=== PATIENT | female | born 1970 | race Asian ===

== ENCOUNTER 2016-07-19 | Outpatient (CLI) | END 2016-07-19 01:49 | disposition critical access hospital (66) | CPT/HCPCS: A0425; A0427 ==

== ENCOUNTER 2016-07-19 02:15 | Emergency (ER) | payer MEDICAID ==
[2016-07-19] MEDS ORDERED: AZITHROMYCIN 250 MG TABLET PO STA (07:58)
[2016-07-19] MEDS ORDERED: AZITHROMYCIN 250 MG TABLET PO ONE (07:59)
[2016-07-19] MEDS ORDERED: ACETAMINOPHEN 325 MG TABLET PO STA (07:59)
[2016-07-19] MEDS ORDERED: ACETAMINOPHEN 325 MG TABLET PO ONE (07:59)
== END 2016-07-19 08:16 | disposition home or self-care (01) ==
DX: J40 Bronchitis, not specified as acute or chronic (principal); E11.22 Type 2 diabetes mellitus with diabetic chronic kidney disease; I12.0 Hypertensive chronic kidney disease with stage 5 chronic kidney disease or end stage renal disease; N18.6 End stage renal disease; F17.200 Nicotine dependence, unspecified, uncomplicated; Z99.2 Dependence on renal dialysis
CPT/HCPCS: 36415; 71020; 80053; 83690; 83880; 85025; 85610; 85730; 87275; 87276; 99284; A9270

== ENCOUNTER 2016-09-14 10:44 | Outpatient (CLI) | payer MEDICAID | END 2016-09-14 10:45 | disposition home or self-care (01) | DX: R06.00 Dyspnea, unspecified (principal); N18.5 Chronic kidney disease, stage 5 ==

== ENCOUNTER 2016-09-27 09:26 | Outpatient (CLI) | payer MEDICAID | END 2016-09-27 09:27 | disposition critical access hospital (66) | DX: R22.0 Localized swelling, mass and lump, head (principal); R10.9 Unspecified abdominal pain | CPT/HCPCS: A0425; A0427 ==

== ENCOUNTER 2016-09-27 09:51 | Emergency (ER) | payer MEDICAID ==
[2016-09-27] MEDS ORDERED: FUROSEMIDE 40 MG/4 ML VIAL IVP STA ×2 (12:18→12:58)
[2016-09-27] MEDS ORDERED: ACETAMINOPHEN 325 MG TABLET PO STA (12:21)
[2016-09-27] MEDS ORDERED: diphenhydrAMINE 25 MG CAPSULE PO STA (12:21)
[2016-09-27] MEDS ORDERED: FUROSEMIDE 40 MG/4 ML VIAL ONE ×2 (12:35→13:04)
[2016-09-27] MEDS ORDERED: ACETAMINOPHEN 325 MG TABLET PO ONE (12:35)
[2016-09-27] MEDS ORDERED: diphenhydrAMINE 25 MG CAPSULE PO ONE (12:35)
== END 2016-09-27 14:04 | disposition home or self-care (01) ==
DX: E11.22 Type 2 diabetes mellitus with diabetic chronic kidney disease (principal); N18.6 End stage renal disease; Z99.2 Dependence on renal dialysis; R60.1 Generalized edema; I10 Essential (primary) hypertension; E78.00 Pure hypercholesterolemia, unspecified; J45.909 Unspecified asthma, uncomplicated; K21.9 Gastro-esophageal reflux disease without esophagitis; M19.90 Unspecified osteoarthritis, unspecified site; F17.200 Nicotine dependence, unspecified, uncomplicated
CPT/HCPCS: 36415; 80053; 83690; 83735; 84100; 85025; 96374; 99283; 99284; A9270

== ENCOUNTER 2016-10-11 03:47 | Outpatient (CLI) | payer MEDICAID | END 2016-10-11 03:48 | disposition critical access hospital (66) | DX: R06.02 Shortness of breath (principal) | CPT/HCPCS: A0425; A0427 ==

== ENCOUNTER 2016-10-11 04:10 | Emergency (ER) | payer MEDICAID ==
[2016-10-11 05:26] LABS: BASOPHILS # (AUTO) 0.1 10^3/uL (0.0-0.1); BASOPHILS % (AUTO) 0.6 %; EOSINOPHILS # (AUTO) 0.3 10^3/uL (0.0-0.7); EOSINOPHILS % (AUTO) 2.9 %; HCT - HEMATOCRIT 33.1 % (37.0-47.0); HGB - HEMOGLOBIN 10.6 g/dL (12.0-16.0); LYMPHOCYTES # (AUTO) 0.6 10^3/uL (1.5-3.5); LYMPHOCYTES % (AUTO) 5.3 %; MEAN CORPUSCULAR HEMOGLOBIN 31.6 pg (27.0-31.0); MEAN CORPUSCULAR HGB CONC 32.2 g/dL (32.0-36.0); MEAN CORPUSCULAR VOLUME 98.1 fL (81.0-99.0); MEAN PLATELET VOLUME 7.4 fL (7.9-10.8); MONOCYTES # (AUTO) 0.5 10^3/uL (0.0-1.0); MONOCYTES % (AUTO) 4.4 %; NEUTROPHILS # (AUTO) 9.6 10^3/uL (1.5-6.6); NEUTROPHILS % (AUTO) 86.8 %; RED BLOOD COUNT 3.37 10^6/uL (4.20-5.40); RED CELL DISTRIBUTION WIDTH 14.7 % (12.0-15.0)
[2016-10-11 05:40] LABS: ALBUMIN/GLOBULIN RATIO 1.2 (1.0-2.2); BILIRUBIN,TOTAL 0.9 mg/dL (0.2-1.0); CALCIUM 10.4 mg/dL (8.5-10.3); POTASSIUM 4.6 mmol/L (3.5-5.0); TOTAL PROTEIN 7.4 g/dL (6.7-8.2)
[2016-10-11 05:46] LABS: CREATININE 10.3 mg/dL (0.4-1.0)
--- NOTE | 2016-10-11 06:43 | ED Physician Documentation ---
PD HPI CHEST PAIN <Michael Tse - Last Filed: 10/11/16 06:43> - History obtained from History obtained from: Patient - History of Present Illness Timing - onset: Last night <Tejas Strong - Last Filed: 10/11/16 07:27> - Stated complaint Stated Complaint: CP, COUGH - Chief complaint Chief Complaint: Resp PD PAST MEDICAL HISTORY - Past Medical History Cardiovascular: Hypertension, High cholesterol Respiratory: Asthma, Pneumonia, Other Neuro: None Endocrine/Autoimmune: Type 2 diabetes GI: GERD : Dialysis, Renal insuffiency, Other HEENT: Other Psych: Depression, Anxiety Musculoskeletal: Osteoarthritis, Chronic back pain Derm: None - Past Surgical History Past Surgical History: Yes General: Cholecystectomy, Appendectomy, Bowel surgery Ortho: Carpal Tunnel surgery, 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, 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 HEENT: Cataracts, Other - Social History Does the pt smoke?: Yes Smoking Status: Current every day smoker Does the pt drink ETOH?: No Does the pt have substance abuse?: No - Immunizations Immunizations are current?: Yes - POLST Patient has POLST: No <Michael Tse - Last Filed: 10/11/16 06:43> <Tejas Strong - Last Filed: 10/11/16 07:27> - Present Medications Home Medications: Ambulatory Orders Medication Instructions Recorded Confirmed Labetalol HCl [Trandate] 100 mg PO BID 11/20/12 10/11/16 Montelukast Sodium [Singulair] 10 mg PO DAILY 11/25/12 10/11/16 raNITIdine [Zantac] 1 tab PO BID 08/22/14 10/11/16 Albuterol Sulfate [Proair 90 mcg IH Q6HR PRN 06/02/15 10/11/16 Respiclick] Loratadine 10 mg PO DAILY 06/02/15 10/11/16 Amoxicillin 875 mg PO BID 09/27/16 10/11/16 Azithromycin 0 mg PO .FREQ 09/27/16 09/27/16 Bisacodyl [Dulcolax] 10 mg PO DAILY PRN #10 tablet 09/27/16 10/11/16 Calcium Acetate 1,334 mg PO TIDWM 09/27/16 09/27/16 Citalopram [CeleXA] 0 mg PO .FREQ 09/27/16 09/27/16 Fluconazole 0 mg PO .FREQ 09/27/16 09/27/16 Fludrocortisone [Florinef] 0.2 mg PO DAILY 09/27/16 10/11/16 Furosemide [Lasix] 160 mg PO BID 09/27/16 10/11/16 Gabapentin 900 mg PO DAILY PM 09/27/16 10/11/16 Hydrocodone/Acetaminophen [Vicodin 0 mg PO .FREQ 09/27/16 09/27/16 Hp 10-300 mg Tablet] Hydroxyzine HCl 25 mg PO .FREQ 09/27/16 09/27/16 Lisinopril 2.5 mg PO DAILY 09/27/16 10/11/16 Metolazone 5 mg PO DAILY 09/27/16 10/11/16 Omeprazole 40 mg PO BID 09/27/16 10/11/16 Sertraline [Zoloft] 25 mg PO DAILY 09/27/16 10/11/16 hydrALAZINE [Apresoline] 25 mg PO BID 09/27/16 10/11/16 Albuterol Sulfate [Proair Hfa 8.5 gm IH QID #1 hfa.aer.ad 10/11/16 Inhaler] Azithromycin [Zithromax] 250 mg PO DAILY #6 tablet 10/11/16 Baclofen 5 - 10 mg PO PRN PRN 10/11/16 10/11/16 Dexamethasone [Decadron] 4 mg PO DAILY #5 tablet 10/11/16 - Allergies Allergies/Adverse Reactions: Allergies Allergy/AdvReac Type Severity Reaction Status Date / Time No Known Drug Allergies Allergy Verified 10/11/16 04:19 - Vitals Vitals: Vital Signs - 24 hr 10/11/16 04:13 Temperature 98.2 C H Heart Rate 77 Respiratory 20 Rate Blood Pressure 174/70 H O2 Saturation 96 Oxygen O2 Source Room air - Labs Labs: Laboratory Tests 10/11/16 10/11/16 10/11/16 05:19 05:19 05:19 WBC 11.0 H RBC 3.37 L Hgb 10.6 L Hct 33.1 L MCV 98.1 MCH 31.6 H MCHC 32.2 RDW 14.7 Plt Count 264 MPV 7.4 L Neut # 9.6 H Lymph # 0.6 L [place] # 0.5 Eos # 0.3 Baso # 0.1 Absolute Nucleated RBC 0.00 Nucleated RBCs 0.0 Sodium 133 L Potassium 4.6 Chloride 95 L Carbon Dioxide 25 Anion Gap 13.0 BUN 53 H Creatinine 10.3 H* Estimated GFR (MDRD) 4 L Glucose 215 H Calcium 10.4 H Total Bilirubin 0.9 AST 14 ALT 13 Alkaline Phosphatase 75 Troponin I 0.07 Total Protein 7.4 Albumin 4.0 Globulin 3.4 Albumin/Globulin Ratio 1.2 Lipase 21 L Departure <Michael Tse - Last Filed: 10/11/16 06:43> - Departure Record reviewed to determine appropriate education?: Yes <Tejas Strong - Last Filed: 10/11/16 07:27> - Departure Clinical Impression: Bronchitis Chest pain Qualifiers: Chest pain type: pleurodynia Qualified Code(s): R07.81 - Pleurodynia Condition: Stable Instructions: ED Bronchitis Asthmatic, ED Chest Pain Pleurisy Follow-Up: Lorie Glynn ARNP [Primary Care Provider] - Prescriptions: Dexamethasone [Decadron] 4 mg PO DAILY #5 tablet Albuterol Sulfate [Proair Hfa Inhaler] 8.5 gm IH QID #1 hfa.aer.ad Azithromycin [Zithromax] 250 mg PO DAILY #6 tablet
[2016-10-11] MEDS ORDERED: IPRATROPIUM/ALBUTEROL 3 ML NEB INH ONE (07:19)
[2016-10-11] MEDS: IPRATROPIUM/ALBUTEROL 3 ML NEB INH STA (07:24)
--- NOTE | 2016-10-11 07:25 | XRAY Preliminary Report ---
Exam: XR Chest 2 View PA/LAT IMPRESSION: 1. No definable focal consolidation. 2. Central bronchial wall thickening as before may represent bronchitis or reactive airways disease. 3. Chronic bilateral rib fractures as before. [facility] SITE ID: [id number]
--- NOTE | 2016-10-11 07:30 | ED Physician Documentation ---
PD HPI CHEST PAIN - Stated complaint Stated Complaint: CP, COUGH - Chief complaint Chief Complaint: Resp - History obtained from History obtained from: Patient - History of Present Illness Timing - onset: Last night Timing - duration: Hours (4-6) Timing - details: Gradual onset, Still present, Waxing and waning Quality: Sharp, Stabbing, Pain Location: Substernal, Left chest Radiation: No: Jaw, Neck Improved by: Rest Worsened by: Inspiration, Movement, Other (cough) Associated symptoms: Shortness of air, Cough (has had cough for 1-2 weeks particularly, though some cough for few months.) Similar symptoms before: Has not had sx before Recently seen: Not recently seen Review of Systems Constitutional: denies: Fever, Chills Nose: denies: Rhinorrhea / runny nose, Congestion Throat: denies: Sore throat Cardiac: reports: Chest pain / pressure (just last night). denies: Palpitations , Pedal edema, Calf pain Respiratory: reports: Cough, Wheezing GI: denies: Nausea, Vomiting, Diarrhea Skin: denies: Rash PD PAST MEDICAL HISTORY - Past Medical History Cardiovascular: Hypertension, High cholesterol Respiratory: Asthma, Pneumonia, Other Neuro: None Endocrine/Autoimmune: Type 2 diabetes GI: GERD : Dialysis, Renal insuffiency, Other HEENT: Other Psych: Depression, Anxiety Musculoskeletal: Osteoarthritis, Chronic back pain Derm: None - Past Surgical History Past Surgical History: Yes General: Cholecystectomy, Appendectomy, Bowel surgery Ortho: Carpal Tunnel surgery, 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, 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 HEENT: Cataracts, Other - Present Medications Home Medications: Ambulatory Orders Medication Instructions Recorded Confirmed Labetalol HCl [Trandate] 100 mg PO BID 11/20/12 10/11/16 Montelukast Sodium [Singulair] 10 mg PO DAILY 11/25/12 10/11/16 raNITIdine [Zantac] 1 tab PO BID 08/22/14 10/11/16 Albuterol Sulfate [Proair 90 mcg IH Q6HR PRN 06/02/15 10/11/16 Respiclick] Loratadine 10 mg PO DAILY 06/02/15 10/11/16 Amoxicillin 875 mg PO BID 09/27/16 10/11/16 Bisacodyl [Dulcolax] 10 mg PO DAILY PRN #10 tablet 09/27/16 10/11/16 Calcium Acetate 1,334 mg PO TIDWM 09/27/16 09/27/16 Citalopram [CeleXA] 0 mg PO .FREQ 09/27/16 09/27/16 Fluconazole 0 mg PO .FREQ 09/27/16 09/27/16 Fludrocortisone [Florinef] 0.2 mg PO DAILY 09/27/16 10/11/16 Furosemide [Lasix] 160 mg PO BID 09/27/16 10/11/16 Gabapentin 900 mg PO DAILY PM 09/27/16 10/11/16 Hydrocodone/Acetaminophen [Vicodin 0 mg PO .FREQ 09/27/16 09/27/16 Hp 10-300 mg Tablet] Hydroxyzine HCl 25 mg PO .FREQ 09/27/16 09/27/16 Lisinopril 2.5 mg PO DAILY 09/27/16 10/11/16 Metolazone 5 mg PO DAILY 09/27/16 10/11/16 Omeprazole 40 mg PO BID 09/27/16 10/11/16 Sertraline [Zoloft] 25 mg PO DAILY 09/27/16 10/11/16 hydrALAZINE [Apresoline] 25 mg PO BID 09/27/16 10/11/16 Albuterol Sulfate [Proair Hfa 8.5 gm IH QID #1 hfa.aer.ad 10/11/16 Inhaler] Baclofen 5 - 10 mg PO PRN PRN 10/11/16 10/11/16 Dexamethasone [Decadron] 4 mg PO DAILY #5 tablet 10/11/16 Doxycycline Hyclate 100 mg PO BID #14 tablet 10/11/16 - Allergies Allergies/Adverse Reactions: Allergies Allergy/AdvReac Type Severity Reaction Status Date / Time No Known Drug Allergies Allergy Verified 10/11/16 04:19 - Social History Does the pt smoke?: Yes Smoking Status: Current every day smoker Does the pt drink ETOH?: No Does the pt have substance abuse?: No - Immunizations Immunizations are current?: Yes - POLST Patient has POLST: No PD ED PE NORMAL - Vitals Vital signs reviewed: Yes - General General: Alert and oriented X 3 (was asleep on my first exam but awakens and conversant. ), No acute distress, Well developed/nourished - Neck Neck: Supple, no meningeal sign, No adenopathy - Cardiac Cardiac: RRR, No murmur, No rub - Respiratory Respiratory: No: Clear bilaterally (wheezing diffusely without retractions/ accessory muscle use. No coarse sounds. ) - Abdomen Abdomen: Soft, Non tender - Derm Derm: Normal color, Warm and dry - Extremities Extremities: Normal ROM s pain, No edema, No calf tenderness / cord - Neuro Neuro: Alert and oriented X 3, No motor deficit, Normal speech Results - Vitals Vitals: Vital Signs - 24 hr 10/11/16 10/11/16 10/11/16 04:13 07:30 07:38 Temperature 98.2 C H Heart Rate 77 74 71 Respiratory 20 20 Rate Blood Pressure 174/70 H 142/58 H O2 Saturation 96 97 10/11/16 08:00 Temperature Heart Rate 71 Respiratory 20 Rate Blood Pressure 155/65 H O2 Saturation 95 Oxygen O2 Source Room air - EKG (time done) 04:38 Rate: Rate (enter#) (70s) Rhythm: NSR [place]: Normal Intervals: Normal DE QRS: Normal Ischemia: Normal ST segments, Non specific changes (t inverted lateral). No: ST elevation c/w ischemia - Labs Labs: Laboratory Tests 10/11/16 10/11/16 10/11/16 05:19 05:19 05:19 WBC 11.0 H RBC 3.37 L Hgb 10.6 L Hct 33.1 L MCV 98.1 MCH 31.6 H MCHC 32.2 RDW 14.7 Plt Count 264 MPV 7.4 L Neut # 9.6 H Lymph # 0.[address] [place] # 0.5 Eos # 0.3 Baso # 0.1 Absolute Nucleated RBC 0.00 Nucleated RBCs 0.0 Sodium 133 L Potassium 4.6 Chloride 95 L Carbon Dioxide 25 Anion Gap 13.0 BUN 53 H Creatinine 10.3 H* Estimated GFR (MDRD) 4 L Glucose 215 H Calcium 10.4 H Total Bilirubin 0.9 AST 14 ALT 13 Alkaline Phosphatase 75 Troponin I 0.07 Total Protein 7.4 Albumin 4.0 Globulin 3.4 Albumin/Globulin Ratio 1.2 Lipase 21 L - Rads (name of study) chest Radiology: Prelim report reviewed (no infiltrates) PD MEDICAL DECISION MAKING - ED course Complexity details: reviewed results, considered differential (sounds pleuritic with recent cough. Wheezing improves with neb treatment. Minimal trop presence in pt with renal failure 4-6 hours after onset of pains is negative.), d/w patient Departure - Departure Disposition: 01 Home, Self Care Clinical Impression: Bronchitis Chest pain Qualifiers: Chest pain type: pleurodynia Qualified Code(s): R07.81 - Pleurodynia Condition: Stable Record reviewed to determine appropriate education?: Yes Instructions: ED Bronchitis Asthmatic, ED Chest Pain Pleurisy Follow-Up: Lorie Glynn ARNP [Primary Care Provider] - Prescriptions: Dexamethasone [Decadron] 4 mg PO DAILY #5 tablet Doxycycline Hyclate 100 mg PO BID #14 tablet Albuterol Sulfate [Proair Hfa Inhaler] 8.5 gm IH QID #1 hfa.aer.ad Comments: Continue usual medications. Dialysis today as planned. Add Decadron daily for 5 more days and Doxycycline antibiotic twice daily for bronchitis. Use your Albuterol inhaler 2 puffs 4 times daily for 7-10 days at least and extra times as needed. Recheck if not improving over the next couple of days.
[2016-10-11] MEDS ORDERED: AZITHROMYCIN 250 MG TABLET PO ONE (07:44)
[2016-10-11] MEDS ORDERED: CHERRY SYRUP 10 ML UDC PO ONE (07:45)
[2016-10-11] MEDS ORDERED: oxyCOD/ACETAMIN 5 MG/325 MG TABLET PO ONE (07:45)
[2016-10-11] MEDS ORDERED: ACETAMINOPHEN 325 MG TABLET PO ONE (07:46)
[2016-10-11] MEDS ORDERED: DEXAMETHASONE 10 MG/ML VIAL ONE (07:47)
[2016-10-11] MEDS: ACETAMINOPHEN 325 MG TABLET PO STA (07:52)
[2016-10-11] MEDS: DEXAMETHASONE 10 MG/ML VIAL PO STA (07:52)
[2016-10-11] MEDS: oxyCOD/ACETAMIN 5 MG/325 MG TABLET PO STA (07:52)
[2016-10-11] MEDS: AZITHROMYCIN 250 MG TABLET PO STA (07:53)
[2016-10-11] MEDS: HYDROmorphone 1 MG/ML SYRINGE IVP STA (08:02)
[2016-10-11] MEDS: DEXAMETHASONE 10 MG/ML VIAL IVP STA (08:04)
[2016-10-11] MEDS ORDERED: ALBUTEROL NEB 2.5 MG/3 ML INH ONE (08:10)
[2016-10-11] MEDS: ALBUTEROL NEB 2.5 MG/3 ML INH STA (08:13)
[2016-10-11 08:16] VITALS: BP 155/65
--- NOTE | 2016-10-11 10:08 | XRAY Report ---
EXAM: CHEST RADIOGRAPHY EXAM DATE: 10/11/2016 06:02 AM. CLINICAL HISTORY: Chest pain and cough. COMPARISON: 09/14/2016. TECHNIQUE: 2 views. FINDINGS: Lungs/Pleura: No definite focal consolidation identified. There is a suggestion of perihilar bronchia l wall thickening best seen on the lateral view and similar to prior exam. No effusions or edema. Pul monary vascular structures unremarkable. Mediastinum: Mildly enlarged as before. Other: Old rib fractures of the right posterior seventh and left lateral sixth ribs again identified. Some pleural thickening adjacent to the left sixth rib fracture again noted. IMPRESSION: 1. No definable focal consolidation. 2. Central bronchial wall thickening as before may represent bronchitis or reactive airways disease. 3. Chronic bilateral rib fractures as before. [facility] Referring Provider Line: [phone] SITE ID: [id number]
== END 2016-10-11 08:27 | disposition home or self-care (01) ==
LOC: EDBD → EDUNIT# → SUPCPDRO 04:10 → ED 04:10
DX: J40 Bronchitis, not specified as acute or chronic (principal); R07.81 Pleurodynia; I10 Essential (primary) hypertension; E78.00 Pure hypercholesterolemia, unspecified; J45.909 Unspecified asthma, uncomplicated; E11.9 Type 2 diabetes mellitus without complications; K21.9 Gastro-esophageal reflux disease without esophagitis; Z90.49 Acquired absence of other specified parts of digestive tract; F17.200 Nicotine dependence, unspecified, uncomplicated; Z90.710 Acquired absence of both cervix and uterus
CPT/HCPCS: 36415; 71020; 80053; 83690; 84484; 85025; 93005; 93010; 94640; 99283; 99284

== ENCOUNTER 2016-10-18 14:55 | Outpatient (CLI) | payer MEDICAID | END 2016-10-18 14:56 | disposition critical access hospital (66) | DX: R47.02 Dysphasia (principal); R29.898 Other symptoms and signs involving the musculoskeletal system | CPT/HCPCS: A0425; A0429 ==

== ENCOUNTER 2016-10-18 15:09 | Emergency (ER) | payer MEDICAID ==
[2016-10-18] MEDS ORDERED: MOXIFLOXACIN 400MG/250ML IV 250 ML IV ONE (18:00)
== END 2016-10-18 19:16 | disposition short-term general hospital (02) ==
DX: G45.9 Transient cerebral ischemic attack, unspecified (principal); R29.705 NIHSS score 5; J18.9 Pneumonia, unspecified organism; R09.02 Hypoxemia; R41.82 Altered mental status, unspecified; I12.0 Hypertensive chronic kidney disease with stage 5 chronic kidney disease or end stage renal disease; E11.22 Type 2 diabetes mellitus with diabetic chronic kidney disease; N18.6 End stage renal disease; Z99.2 Dependence on renal dialysis; F17.200 Nicotine dependence, unspecified, uncomplicated

== ENCOUNTER 2016-10-18 19:14 | Outpatient (CLI) | payer MEDICAID | END 2016-10-18 19:15 | disposition short-term general hospital (02) | DX: J18.9 Pneumonia, unspecified organism (principal); R09.02 Hypoxemia | CPT/HCPCS: A0170; A0425; A0426 ==

== ENCOUNTER 2016-10-31 12:03 | Outpatient (CLI) | payer MEDICAID | END 2016-10-31 12:04 | disposition home or self-care (01) | DX: I48.91 Unspecified atrial fibrillation (principal) ==

== ENCOUNTER 2016-11-02 13:52 | Outpatient (CLI) | payer MEDICAID | END 2016-11-02 13:53 | disposition home or self-care (01) | DX: I48.91 Unspecified atrial fibrillation (principal) ==

== ENCOUNTER 2016-11-09 10:53 | Outpatient (CLI) | payer MEDICAID | END 2016-11-09 10:54 | DX: I48.91 Unspecified atrial fibrillation (principal) ==

== ENCOUNTER 2016-11-11 11:29 | Outpatient (CLI) | payer MEDICAID | END 2016-11-11 11:30 | disposition home or self-care (01) | DX: I48.91 Unspecified atrial fibrillation (principal) ==

== ENCOUNTER 2016-11-14 12:02 | Outpatient (CLI) | payer MEDICAID | END 2016-11-14 12:03 | DX: I48.91 Unspecified atrial fibrillation (principal) ==

== ENCOUNTER 2016-11-17 15:34 | Outpatient (CLI) | payer MEDICAID | END 2016-11-17 15:35 | DX: I48.91 Unspecified atrial fibrillation (principal) ==

== ENCOUNTER 2016-11-21 17:04 | Outpatient (CLI) | payer MEDICAID | END 2016-11-21 17:05 | disposition short-term general hospital (02) | LOC: EMS 17:04 | PROVIDERS: ATTEND Surgery | DX: R10.9 Unspecified abdominal pain (principal); R11.0 Nausea; R19.7 Diarrhea, unspecified; R53.83 Other fatigue; Z99.2 Dependence on renal dialysis | CPT/HCPCS: A0425; A0429 ==

== ENCOUNTER 2016-11-28 12:04 | Outpatient (CLI) | payer MEDICAID | END 2016-11-28 12:05 | disposition home or self-care (01) | LOC: LAB.S 12:04 | PROVIDERS: ATTEND Nurse Practitioner Family | DX: I48.91 Unspecified atrial fibrillation (principal) | CPT/HCPCS: 85610 ==

== ENCOUNTER 2016-11-28 15:45 | Outpatient (CLI) | payer MEDICAID | END 2016-11-28 15:46 | disposition short-term general hospital (02) | LOC: EMS 15:45 | PROVIDERS: ATTEND Surgery | DX: R11.2 Nausea with vomiting, unspecified (principal); R53.1 Weakness; Z99.2 Dependence on renal dialysis | CPT/HCPCS: A0170; A0425; A0427 ==

== ENCOUNTER 2016-12-13 00:14 | Outpatient (CLI) | payer MEDICAID | END 2016-12-13 00:15 | disposition critical access hospital (66) | LOC: EMS 00:14 | PROVIDERS: ATTEND Surgery | DX: R06.02 Shortness of breath (principal) | CPT/HCPCS: A0425; A0429 ==

== ENCOUNTER 2016-12-13 00:41 | Emergency (ER) | payer MEDICAID ==
[2016-12-13] MEDS ORDERED: IPRATROPIUM/ALBUTEROL 3 ML NEB INH STA (00:48)
--- NOTE | 2016-12-13 00:50 | ED Physician Documentation ---
History of Present Illness - Stated complaint Stated Complaint: SOA, DIZZY - Chief complaint Chief Complaint: Resp - History obtained from History obtained from: Patient, EMS - History of Present Illness Timing: Chronic Pain level max: 0 Pain level now: 0 - Additonal information Additional information: Patient is a 46-year-old female who presents to the emergency department with a complaint of not feeling well today. States she has been short of breath tonight. States she has been wheezing, but has not used her inhaler or nebulizer. States she did not take her insulin today and her blood sugar is around 300. She is supposed to have dialysis in the morning. She sees GRETA Akins for nephrology. Review of Systems Ten Systems: 10 systems reviewed and negative Constitutional: denies: Fever, Chills Nose: denies: Rhinorrhea / runny nose, Congestion Throat: denies: Sore throat Cardiac: denies: Chest pain / pressure Respiratory: denies: Cough GI: denies: Nausea, Vomiting, Diarrhea Skin: denies: Rash Musculoskeletal: denies: Neck pain, Back pain Neurologic: denies: Focal weakness, Numbness, Confused, Altered mental status, Headache PD PAST MEDICAL HISTORY - Past Medical History Cardiovascular: Hypertension, High cholesterol Respiratory: Asthma, Pneumonia, Other Neuro: None Endocrine/Autoimmune: Type 2 diabetes GI: GERD : Dialysis, Renal insuffiency, Other HEENT: Other Psych: Depression, Anxiety Musculoskeletal: Osteoarthritis, Chronic back pain Derm: None - Past Surgical History Past Surgical History: Yes General: Cholecystectomy, Appendectomy, Bowel surgery Ortho: Carpal Tunnel surgery, 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, 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 HEENT: Cataracts, Other - Present Medications Home Medications: Ambulatory Orders Medication Instructions Recorded Confirmed Labetalol HCl [Trandate] 100 mg PO BID 11/20/12 10/11/16 Montelukast Sodium [Singulair] 10 mg PO DAILY 11/25/12 10/11/16 raNITIdine [Zantac] 1 tab PO BID 08/22/14 10/11/16 Albuterol Sulfate [Proair 90 mcg IH Q6HR PRN 06/02/15 10/11/16 Respiclick] Loratadine 10 mg PO DAILY 06/02/15 10/11/16 Amoxicillin 875 mg PO BID 09/27/16 10/11/16 Bisacodyl [Dulcolax] 10 mg PO DAILY PRN #10 tablet 09/27/16 10/11/16 Calcium Acetate 1,334 mg PO TIDWM 09/27/16 09/27/16 Citalopram [CeleXA] 0 mg PO .FREQ 09/27/16 09/27/16 Fluconazole 0 mg PO .FREQ 09/27/16 09/27/16 Fludrocortisone [Florinef] 0.2 mg PO DAILY 09/27/16 10/11/16 Furosemide [Lasix] 160 mg PO BID 09/27/16 10/11/16 Gabapentin 900 mg PO DAILY PM 09/27/16 10/11/16 Hydrocodone/Acetaminophen [Vicodin 0 mg PO .FREQ 09/27/16 09/27/16 Hp 10-300 mg Tablet] Hydroxyzine HCl 25 mg PO .FREQ 09/27/16 09/27/16 Lisinopril 2.5 mg PO DAILY 09/27/16 10/11/16 Metolazone 5 mg PO DAILY 09/27/16 10/11/16 Omeprazole 40 mg PO BID 09/27/16 10/11/16 Sertraline [Zoloft] 25 mg PO DAILY 09/27/16 10/11/16 hydrALAZINE [Apresoline] 25 mg PO BID 09/27/16 10/11/16 Albuterol Sulfate [Proair Hfa 8.5 gm IH QID #1 hfa.aer.ad 10/11/16 Inhaler] Baclofen 5 - 10 mg PO PRN PRN 10/11/16 10/11/16 Dexamethasone [Decadron] 4 mg PO DAILY #5 tablet 10/11/16 Doxycycline Hyclate 100 mg PO BID #14 tablet 10/11/16 - Allergies Allergies/Adverse Reactions: Allergies Allergy/AdvReac Type Severity Reaction Status Date / Time No Known Drug Allergies Allergy Verified 12/13/16 00:42 - Social History Does the pt smoke?: Yes Smoking Status: Current every day smoker Does the pt drink ETOH?: No Does the pt have substance abuse?: No - Immunizations Immunizations are current?: Yes - POLST Patient has POLST: No PD ED PE NORMAL - Vitals Vital signs reviewed: Yes - General General: Alert and oriented X 3, No acute distress, Well developed/nourished - HEENT HEENT: Moist mucous membranes - Neck Neck: Supple, no meningeal sign - Cardiac Cardiac: RRR, Strong equal pulses - Respiratory Respiratory: No respiratory distress, Other (wheezing B) - Abdomen Abdomen: Soft, Non tender - Back Back: No spinal TTP - Derm Derm: Warm and dry - Neuro Neuro: Alert and oriented X 3, No motor deficit, No sensory deficit - Psych Psych: Normal mood Results - Vitals Vitals: Vital Signs - 24 hr 12/13/16 12/13/16 12/13/16 00:43 01:10 01:40 Temperature 36.5 C Heart Rate 42 L 37 L 43 L Respiratory 20 16 19 Rate Blood Pressure 112/62 O2 Saturation 100 100 12/13/16 12/13/16 12/13/16 01:59 02:00 02:12 Temperature Heart Rate 47 L 40 L 39 L Respiratory 18 16 18 Rate Blood Pressure 113/61 O2 Saturation 99 97 98 12/13/16 12/13/16 12/13/16 02:20 03:18 03:20 Temperature Heart Rate 40 L 41 L 40 L Respiratory 18 19 Rate Blood Pressure 124/64 134/81 H O2 Saturation 98 95 97 12/13/16 03:35 Temperature Heart Rate 41 L Respiratory 18 Rate Blood Pressure 123/57 L O2 Saturation 95 Oxygen O2 Source Room air - EKG (time done) 0106 Rate: Rate (enter#) (39) Rhythm: Other (junctional) QRS: Normal Ischemia: Normal ST segments Computer interpretation: Agree with computer - Labs Labs: Laboratory Tests 12/13/16 12/13/16 12/13/16 00:55 00:55 00:55 WBC 7.4 RBC 3.00 L Hgb 9.4 L Hct 28.6 L MCV 95.2 MCH 31.1 H MCHC 32.7 RDW 15.6 H Plt Count 229 MPV 8.7 Neut # 5.7 Lymph # 0.8 L [place] # 0.3 Eos # 0.6 Baso # 0.1 Absolute Nucleated RBC 0.00 Nucleated RBCs 0.0 Sodium 132 L Potassium 6.7 H* Chloride 91 L Carbon Dioxide 27 Anion Gap 14.0 H BUN 55 H Creatinine 6.9 H Estimated GFR (MDRD) 6 L Glucose 306 H Calcium 9.1 Phosphorus 5.9 H Magnesium 2.7 Total Bilirubin 0.7 AST 21 ALT 14 Alkaline Phosphatase 152 H Troponin I Total Protein 7.5 Albumin 3.3 Globulin 4.2 Albumin/Globulin Ratio 0.8 L Lipase 22 12/13/16 00:55 WBC RBC Hgb Hct MCV MCH MCHC RDW Plt Count MPV Neut # Lymph # [place] # Eos # Baso # Absolute Nucleated RBC Nucleated RBCs Sodium Potassium Chloride Carbon Dioxide Anion Gap BUN Creatinine Estimated GFR (MDRD) Glucose Calcium Phosphorus Magnesium Total Bilirubin AST ALT Alkaline Phosphatase Troponin I 0.04 Total Protein Albumin Globulin Albumin/Globulin Ratio Lipase - Rads (name of study) cxr Radiology: Prelim report reviewed, EMP read contemporaneously, See rad report ( Mild cardiomegaly with small left pleural effusion and possible slight pulmonary edema. ) PD MEDICAL DECISION MAKING - ED course Complexity details: reviewed results, re-evaluated patient, considered differential, d/w patient ED course: Patient is a 46-year-old female who is on hemodialysis Monday. Not feeling well today. Breathing improved after nebulizer treatment. EKG revealed a junctional bradycardia. A prior EKG was obtained from [facility] in [place] from November 28, 2016 which revealed a junctional bradycardia at that time as well. While in the emergency department she had several runs of ventricular tachycardia. The longest was approximately 18 beats. She was symptomatic during this episode with lightheadedness, dizziness and generally feeling unwell. Magnesium IV was given and pacer pads were placed on the patient. 0210 - Called to [facility] in [place], no ICU beds. Cannot accept in transfer. 0215 - Call placed to [facility] and they do have ICU beds, but no nephrology avail. 0220 - Called Dr. Kaelyn Michel (ICU) lily accepts in transfer. Recommends Bicarb gtt and d/w cardiology for further recommendations including potential isoproteranol gtt. D/w Dr. Deng (cardiology) who recommends holding off on the Isoproterenol drip at this time. We will transfer the patient by airlift. Departure - Departure Disposition: 02 Transfer Acute Care Hosp Clinical Impression: Ventricular tachycardia, Junctional bradycardia, Hyperkalemia Condition: Stable Discharge Date/Time: 12/13/16 03:50
[2016-12-13 01:04] LABS: BASOPHILS # (AUTO) 0.1 10^3/uL (0.0-0.1); EOSINOPHILS # (AUTO) 0.6 10^3/uL (0.0-0.7); EOSINOPHILS % (AUTO) 7.7 %; HCT - HEMATOCRIT 28.6 % (37.0-47.0); HGB - HEMOGLOBIN 9.4 g/dL (12.0-16.0); LYMPHOCYTES # (AUTO) 0.8 10^3/uL (1.5-3.5); MEAN CORPUSCULAR HEMOGLOBIN 31.1 pg (27.0-31.0); MEAN CORPUSCULAR HGB CONC 32.7 g/dL (32.0-36.0); MEAN CORPUSCULAR VOLUME 95.2 fL (81.0-99.0); MEAN PLATELET VOLUME 8.7 fL (7.9-10.8); MONOCYTES # (AUTO) 0.3 10^3/uL (0.0-1.0); MONOCYTES % (AUTO) 3.6 %; NEUTROPHILS # (AUTO) 5.7 10^3/uL (1.5-6.6); NEUTROPHILS % (AUTO) 76.7 %; RED CELL DISTRIBUTION WIDTH 15.6 % (12.0-15.0); UNCORRECTED WHITE BLOOD COUNT 7.4 x10^3/uL; WHITE BLOOD COUNT 7.4 x10^3/uL (4.8-10.8)
[2016-12-13] MEDS ORDERED: IPRATROPIUM/ALBUTEROL 3 ML NEB INH ONE (01:05)
[2016-12-13 01:19] LABS: ALBUMIN/GLOBULIN RATIO 0.8 (1.0-2.2); BILIRUBIN,TOTAL 0.7 mg/dL (0.2-1.0); CALCIUM 9.1 mg/dL (8.5-10.3); CREATININE 6.9 mg/dL (0.4-1.0); TOTAL PROTEIN 7.5 g/dL (6.7-8.2)
[2016-12-13 01:20] LABS: POTASSIUM 6.7 mmol/L (3.5-5.0)
[2016-12-13] MEDS ORDERED: INSULIN REGULAR HUMAN 100 UNIT/1 ML 10 ML MDV SUBQ STA (01:23)
--- NOTE | 2016-12-13 01:26 | XRAY Preliminary Report ---
Exam: XR Chest 1 View IMPRESSION: 1. Mild cardiomegaly with small left pleural effusion and possible slight pulmonary edema. [facility] SITE ID: [id number]
[2016-12-13] MEDS ORDERED: INSULIN REGULAR HUMAN 100 UNIT/1 ML 10 ML MDV ONE (01:27)
--- NOTE | 2016-12-13 01:29 | XRAY Report ---
EXAM: CHEST RADIOGRAPHY EXAM DATE: 12/13/2016 01:02 AM. CLINICAL HISTORY: Dyspnea. COMPARISON: 10/18/2016. TECHNIQUE: 1 view. FINDINGS: Lungs/Pleura: There may be minimal pulmonary edema. Small left pleural effusion. No pneumothorax. Mediastinum: Mild cardiomegaly. Other: None. IMPRESSION: 1. Mild cardiomegaly with small left pleural effusion and possible slight pulmonary edema. [facility] Referring Provider Line: [phone] SITE ID: [id number]
[2016-12-13] MEDS ORDERED: MAGNESIUM SULFATE 2 GRAM 50 ML IV ONE ×2 (02:10→02:15)
[2016-12-13] MEDS ORDERED: CALCIUM GLUCONATE 1000 MG/10 ML VIAL IVP STA (02:25)
[2016-12-13] MEDS ORDERED: CALCIUM GLUCONATE 1000 MG/10 ML VIAL ONE (02:27)
[2016-12-13] MEDS ORDERED: SODIUM BICARBONATE 150 MEQ in DEXTROSE 5% 1,000 ML IV STA (02:36)
[2016-12-13] MEDS ORDERED: SODIUM POLYSTYRENE SULFONATE 15 GM/60 ML BOTTLE PO STA (02:37)
[2016-12-13] MEDS ORDERED: SODIUM BICARBONATE ABBOJECT 50 MEQ/50 ML SYRINGE ONE ×5 (02:47→03:02)
[2016-12-13 02:58] LABS: MAGNESIUM 2.7 mg/dL (1.7-2.8); PHOSPHORUS 5.9 mg/dL (2.5-4.6)
[2016-12-13] MEDS ORDERED: SODIUM POLYSTYRENE SULFONATE 15 GM/60 ML BOTTLE ONE (03:02)
[2016-12-13] MEDS ORDERED: DEXTROSE 5% 1,000 ML IV ONE (03:02)
[2016-12-13 03:35] VITALS: BP 123/57
== END 2016-12-13 03:50 | disposition short-term general hospital (02) ==
LOC: EDUNIT# → ED 00:41
DX: I47.2 Ventricular tachycardia (principal); R00.1 Bradycardia, unspecified; E87.5 Hyperkalemia; I10 Essential (primary) hypertension; E78.00 Pure hypercholesterolemia, unspecified; J45.909 Unspecified asthma, uncomplicated; E11.9 Type 2 diabetes mellitus without complications; K21.9 Gastro-esophageal reflux disease without esophagitis; N28.9 Disorder of kidney and ureter, unspecified; Z99.2 Dependence on renal dialysis; F17.200 Nicotine dependence, unspecified, uncomplicated
CPT/HCPCS: 36415; 71010; 80053; 83690; 83735; 84100; 84484; 85025; 93005; 93010; 94640; 96365; 96375; 99285; A9270; J1815; J7620

== ENCOUNTER 2017-01-19 03:39 | Outpatient (CLI) | payer MEDICAID | END 2017-01-19 03:40 | disposition critical access hospital (66) | DX: R06.02 Shortness of breath (principal); R05 Cough | CPT/HCPCS: A0425; A0427 ==

== ENCOUNTER 2017-01-19 04:20 | Emergency (ER) | payer MEDICAID ==
[2017-01-19] MEDS ORDERED: ALBUTEROL NEB 2.5 MG/3 ML INH STA (04:45)
[2017-01-19] MEDS ORDERED: ALBUTEROL NEB 2.5 MG/3 ML INH ONE (04:49)
[2017-01-19 04:54] LABS: BASOPHILS % (AUTO) 0.7 %; EOSINOPHILS % (AUTO) 9.9 %; HCT - HEMATOCRIT 30.4 % (37.0-47.0); HGB - HEMOGLOBIN 9.9 g/dL (12.0-16.0); LYMPHOCYTES % (AUTO) 8.3 %; MEAN CORPUSCULAR HEMOGLOBIN 30.6 pg (27.0-31.0); MEAN CORPUSCULAR HGB CONC 32.6 g/dL (32.0-36.0); MEAN CORPUSCULAR VOLUME 94.1 fL (81.0-99.0); MEAN PLATELET VOLUME 7.5 fL (7.9-10.8); MONOCYTES % (AUTO) 4.8 %; NEUTROPHILS % (AUTO) 76.3 %; RED BLOOD COUNT 3.23 10^6/uL (4.20-5.40); RED CELL DISTRIBUTION WIDTH 16.6 % (12.0-15.0)
[2017-01-19 05:10] LABS: ALBUMIN/GLOBULIN RATIO 0.9 (1.0-2.2); BILIRUBIN,TOTAL 0.8 mg/dL (0.2-1.0); CALCIUM 9.6 mg/dL (8.5-10.3); CREATININE 7.1 mg/dL (0.4-1.0); POTASSIUM 4.5 mmol/L (3.5-5.0); TOTAL PROTEIN 7.5 g/dL (6.7-8.2)
--- NOTE | 2017-01-19 05:41 | XRAY Preliminary Report ---
Exam: XR Chest 2 View PA/LAT IMPRESSION: 1. Cardiomegaly with small effusions and possible interstitial edema. 2. Infiltrate not excluded, especially at the right base. [facility] SITE ID: [id number]
--- NOTE | 2017-01-19 05:41 | ED Physician Documentation ---
PD HPI DYSPNEA - Stated complaint Stated Complaint: ASTHMA - Chief complaint Chief Complaint: General - History obtained from History obtained from: Patient, EMS - History of Present Illness Timing - onset: How many weeks ago (2) Timing - onset during: Rest Timing - duration: Weeks (2) Timing - details: Gradual onset, Still present Inciting event(s): URI Improved by: Inhaler/neb, Rest Worsened by: Coughing Associated symptoms: Cough, Wheezing Similar symptoms before: Diagnosis (pneumonia) Recently seen: Admitted (The patient was last admitted to [facility] in [place]) - Additional information Additional information: 46-year-old female diabetic end-stage renal failure on dialysis has developed a cough over the past 2 weeks. She is developed increasing difficulty breathing and this morning she was unable to sleep and was unable to get any relief with the use of her Inhaler.She had some mild relief coming into the emergency department by ambulance with a DuoNeb treatment in route.She notes pain to her sinuses and a cough as well as the shortness of breath. She has not had a fever. Review of Systems Constitutional: denies: Fever Eyes: denies: Decreased vision Ears: denies: Ear pain Nose: reports: Rhinorrhea / runny nose, Congestion, Sinus pressure / pain Throat: reports: Sore throat Cardiac: denies: Chest pain / pressure, Palpitations, Pedal edema, Calf pain Respiratory: reports: Dyspnea, Cough, Wheezing GI: denies: Abdominal Pain, Nausea, Vomiting : denies: Dysuria, Frequency Skin: denies: Rash Musculoskeletal: denies: Neck pain PD PAST MEDICAL HISTORY - Past Medical History Past Medical History: Yes Cardiovascular: Hypertension, High cholesterol Respiratory: Asthma, Pneumonia, Other Neuro: CVA Endocrine/Autoimmune: Type 2 diabetes GI: GERD : Dialysis, Renal insuffiency, Other HEENT: Other Psych: Depression, Anxiety Musculoskeletal: Osteoarthritis, Chronic back pain Derm: None - Past Surgical History Past Surgical History: Yes General: Cholecystectomy, Appendectomy, Bowel surgery Ortho: Carpal Tunnel surgery, 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, 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 HEENT: Cataracts, Other - Present Medications Home Medications: Ambulatory Orders Medication Instructions Recorded Confirmed Labetalol HCl [Trandate] 100 mg PO BID 11/20/12 10/11/16 Montelukast Sodium [Singulair] 10 mg PO DAILY 11/25/12 10/11/16 raNITIdine [Zantac] 1 tab PO BID 08/22/14 10/11/16 Albuterol Sulfate [Proair 90 mcg IH Q6HR PRN 06/02/15 10/11/16 Respiclick] Loratadine 10 mg PO DAILY 06/02/15 10/11/16 Amoxicillin 875 mg PO BID 09/27/16 10/11/16 Bisacodyl [Dulcolax] 10 mg PO DAILY PRN #10 tablet 09/27/16 10/11/16 Calcium Acetate 1,334 mg PO TIDWM 09/27/16 09/27/16 Citalopram [CeleXA] 0 mg PO .FREQ 09/27/16 09/27/16 Fluconazole 0 mg PO .FREQ 09/27/16 09/27/16 Fludrocortisone [Florinef] 0.2 mg PO DAILY 09/27/16 10/11/16 Furosemide [Lasix] 160 mg PO BID 09/27/16 10/11/16 Gabapentin 900 mg PO DAILY PM 09/27/16 10/11/16 Hydrocodone/Acetaminophen [Vicodin 0 mg PO .FREQ 09/27/16 09/27/16 Hp 10-300 mg Tablet] Hydroxyzine HCl 25 mg PO .FREQ 09/27/16 09/27/16 Lisinopril 2.5 mg PO DAILY 09/27/16 10/11/16 Metolazone 5 mg PO DAILY 09/27/16 10/11/16 Omeprazole 40 mg PO BID 09/27/16 10/11/16 Sertraline [Zoloft] 25 mg PO DAILY 09/27/16 10/11/16 hydrALAZINE [Apresoline] 25 mg PO BID 09/27/16 10/11/16 Albuterol Sulfate [Proair Hfa 8.5 gm IH QID #1 hfa.aer.ad 10/11/16 Inhaler] Baclofen 5 - 10 mg PO PRN PRN 10/11/16 10/11/16 Dexamethasone [Decadron] 4 mg PO DAILY #5 tablet 10/11/16 Doxycycline Hyclate 100 mg PO BID #14 tablet 10/11/16 - Allergies Allergies/Adverse Reactions: Allergies Allergy/AdvReac Type Severity Reaction Status Date / Time No Known Drug Allergies Allergy Verified 01/19/17 04:30 - Social History Does the pt smoke?: Yes Smoking Status: Current every day smoker Does the pt drink ETOH?: No Does the pt have substance abuse?: No - Immunizations Immunizations are current?: Yes - POLST Patient has POLST: No PD ED PE NORMAL - Vitals Vital signs reviewed: Yes (Hypertensive) - General General: Well developed/nourished, Other (46-year-old female with audible wheeze and tachypnea at rest.) - HEENT HEENT: Atraumatic, PERRL, EOMI, Other (Both TMs are inflamedMildly and the maxillary sinuses are tender bilaterally as well.) - Neck Neck: Supple, no meningeal sign, No bony TTP - Cardiac Cardiac: RRR, No murmur - Respiratory Respiratory: Other (The patient is tachypneic at rest and has bibasilar rhonchi worse on the right than the left.) - Abdomen Abdomen: Soft, Non tender - Back Back: No CVA TTP, No spinal TTP - Derm Derm: Normal color, Warm and dry, No rash - Extremities Extremities: No deformity, No edema - Neuro Neuro: No motor deficit, No sensory deficit - Psych Psych: Normal mood, Normal affect Results - Vitals Vitals: Vital Signs - 24 hr 01/19/17 01/19/17 01/19/17 04:23 04:50 05:24 Temperature 36.8 C Heart Rate 92 88 92 Respiratory 18 22 20 Rate Blood Pressure 149/91 H 196/70 H O2 Saturation 96 94 01/19/17 05:30 Temperature Heart Rate 93 Respiratory 22 Rate Blood Pressure 168/73 H O2 Saturation 97 Oxygen O2 Source Room air - Labs Labs: Laboratory Tests 01/19/17 01/19/17 04:45 04:45 WBC 11.0 H RBC 3.23 L Hgb 9.9 L Hct 30.4 L MCV 94.1 MCH 30.6 MCHC 32.6 RDW 16.6 H Plt Count 317 MPV 7.5 L Neut # Not Reportable Lymph # Not Reportable [place] # Not Reportable Eos # Not Reportable Baso # Not Reportable Absolute Nucleated RBC Not Reportable Total Counted 100 Band Neuts % (Manual) 4 Neutrophils # (Manual) 8.4 H Lymphocytes # (Manual) 0.8 L Monocytes # (Manual) 0.6 Eosinophils # (Manual) 1.3 H Nucleated RBCs Not Reportable Differential Comment MANUAL DIFFERENTIAL Platelet Estimate NORMAL (130-450,000) RBC Morph Micro Appear NORMAL APPEARANCE Sodium 138 Potassium 4.5 Chloride 94 L Carbon Dioxide 31 Anion Gap 13.0 BUN 51 H Creatinine 7.1 H* Estimated GFR (MDRD) 6 L Glucose 305 H Calcium 9.6 Total Bilirubin 0.8 AST 16 ALT 11 Alkaline Phosphatase 115 Total Protein 7.5 Albumin 3.6 Globulin 3.9 Albumin/Globulin Ratio 0.9 L Lipase 39 - Rads (name of study) 2 view chest Radiology: Prelim report reviewed (Impression: 1. Cardio megaly with small effusions and possible interstitial edema.Impression: 1. Cardio megaly with small effusions and possible interstitial edema.), EMP read indepedently, See rad report Procedures - IVC sono (time) 0550 Bedside IVC sono: IVC measures (cm) (2.02), IVC collapsed c insp (cm) (1.32), Collapsibility index (0.33), Euvolemia PD MEDICAL DECISION MAKING - ED course Complexity details: reviewed old records, reviewed results, re-evaluated patient , considered differential, d/w patient, d/w marine engineering consultant (Dr. Contreras hospitalist at [facility] is accepting. ) ED course: 46-year-old diabetic female on dialysis with a complicated past medical history has developed increasing shortness of breath a cough and has infiltrate on chest x-ray. She is not getting much relief with the use of a nebulizer here in the emergency department. She has remained in a sinus rhythm. Departure - Departure Disposition: 02 Transfer Acute Care Hosp Clinical Impression: Pneumonia Qualifiers: Pneumonia type: due to unspecified organism Laterality: right Lung location: lower lobe of lung Qualified Code(s): J18.1 - Lobar pneumonia, unspecified organism
[2017-01-19] MEDS ORDERED: MORPHINE 2 MG/ML SYRINGE IVP STA ×2 (05:42→06:07)
--- NOTE | 2017-01-19 05:43 | XRAY Report ---
EXAM: CHEST RADIOGRAPHY EXAM DATE: 01/19/2017 05:24 AM. CLINICAL HISTORY: Bibasilar rhonchi. Shortness of breath and chest pain. COMPARISON: 12/13/2016. TECHNIQUE: 2 views. FINDINGS: Lungs/Pleura: Possible interstitial edema. Infiltrate not excluded, especially at the right base. Sma ll pleural effusions. No pneumothorax. Mediastinum: Mild cardiomegaly. Other: Old bilateral rib fractures. IMPRESSION: 1. Cardiomegaly with small effusions and possible interstitial edema. 2. Infiltrate not excluded, especially at the right base. [facility] Referring Provider Line: [phone] SITE ID: [id number]
[2017-01-19] MEDS ORDERED: MORPHINE 2 MG/ML SYRINGE ONE ×2 (05:44→06:14)
[2017-01-19 05:50] LABS: BAND NEUTROPHILS % (MANUAL) 4 %; EOSINOPHILS % (MANUAL) 12 %; LYMPHOCYTES % (MANUAL) 7 %; NEUTROPHILS % (MANUAL) 72 %; NP AUTO DIFFERENTIAL? YES; NP MAN DIFFERENTIAL? NO; PLATELET ESTIMATE, MANUAL NORMAL (130-450,000) (NORMAL); TOTAL CELLS COUNTED 100
[2017-01-19] MEDS ORDERED: cefTRIAXone 1 GM in SODIUM CHLORIDE 0.9% MINIBAG 100 ML IV STA (06:00)
[2017-01-19] MEDS ORDERED: AZITHROMYCIN INJ 500 MG in SODIUM CHLORIDE 0.9% 250 ML IV STA (06:06)
[2017-01-19] MEDS ORDERED: cefTRIAXone 1 GM VIAL ONE (06:06)
[2017-01-19] MEDS ORDERED: oxyCOD/ACETAMIN 5 MG/325 MG TABLET PO STA (07:19)
[2017-01-19] MEDS ORDERED: oxyCOD/ACETAMIN 5 MG/325 MG TABLET PO ONE (07:28)
[2017-01-19 07:44] LABS: BILIRUBIN,URINE NEGATIVE (NEGATIVE); PH,URINE 8.5 PH (5.0-7.5)
[2017-01-19 07:46] LABS: UA w/ MICROSCOPIC CHARGE YES
[2017-01-19 07:51] LABS: WBC,URINE 0-3 /HPF (0-5)
[2017-01-19 07:52] LABS: UR CULTURE IF IND NOT INDICATED
[2017-01-19 08:22] VITALS: BP 169/89
== END 2017-01-19 08:22 | disposition short-term general hospital (02) ==
LOC: EDUNIT# → ED 04:20
DX: J18.9 Pneumonia, unspecified organism (principal); I12.0 Hypertensive chronic kidney disease with stage 5 chronic kidney disease or end stage renal disease; E11.22 Type 2 diabetes mellitus with diabetic chronic kidney disease; N18.6 End stage renal disease; Z99.2 Dependence on renal dialysis; Z86.73 Personal history of transient ischemic attack (TIA), and cerebral infarction without residual deficits; F17.200 Nicotine dependence, unspecified, uncomplicated
CPT/HCPCS: 36415; 71020; 80053; 81001; 83690; 85025; 87040; 94640; 96365; 96375; 99285; A9270; J7613; 81003; 87086

== ENCOUNTER 2017-01-19 08:23 | Outpatient (CLI) | payer MEDICAID | END 2017-01-19 08:24 | disposition short-term general hospital (02) | DX: J18.9 Pneumonia, unspecified organism (principal); Z99.2 Dependence on renal dialysis; M54.2 Cervicalgia | CPT/HCPCS: A0170; A0425; A0428 ==

== ENCOUNTER 2017-02-06 18:48 | Outpatient (CLI) | payer MEDICAID | END 2017-02-06 18:49 | disposition short-term general hospital (02) | LOC: EMS 18:48 | PROVIDERS: ATTEND Surgery | DX: R06.02 Shortness of breath (principal); R07.89 Other chest pain | CPT/HCPCS: A0170; A0425; A0427 ==

== ENCOUNTER 2017-02-13 15:38 | Outpatient (CLI) | payer MEDICAID | END 2017-02-13 15:39 | disposition home or self-care (01) | LOC: RT.S 15:38 | PROVIDERS: ATTEND Nurse Practitioner Family | DX: R07.89 Other chest pain (principal); E87.5 Hyperkalemia | CPT/HCPCS: 93005 ==

== ENCOUNTER 2017-02-23 10:02 | Outpatient (CLI) | payer MEDICAID | END 2017-02-23 10:03 | disposition critical access hospital (66) | LOC: EMS 10:02 | PROVIDERS: ATTEND Surgery | DX: R07.9 Chest pain, unspecified (principal) | CPT/HCPCS: A0425; A0427 ==

== ENCOUNTER 2017-02-23 10:05 | Emergency (ER) | payer MEDICAID ==
[2017-02-23] MEDS ORDERED: SODIUM CHLORIDE FLUSH 0.9% 10 ML SYRINGE IVP ONE (10:18)
[2017-02-23 10:35] LABS: BASOPHILS # (AUTO) 0.1 10^3/uL (0.0-0.1); BASOPHILS % (AUTO) 1.2 %; EOSINOPHILS # (AUTO) 0.8 10^3/uL (0.0-0.7); HCT - HEMATOCRIT 24.8 % (37.0-47.0); LYMPHOCYTES # (AUTO) 0.8 10^3/uL (1.5-3.5); LYMPHOCYTES % (AUTO) 9.7 %; MEAN CORPUSCULAR HEMOGLOBIN 30.7 pg (27.0-31.0); MEAN CORPUSCULAR HGB CONC 32.2 g/dL (32.0-36.0); MEAN CORPUSCULAR VOLUME 95.2 fL (81.0-99.0); MEAN PLATELET VOLUME 7.8 fL (7.9-10.8); MONOCYTES # (AUTO) 0.5 10^3/uL (0.0-1.0); MONOCYTES % (AUTO) 6.1 %; NEUTROPHILS # (AUTO) 6.2 10^3/uL (1.5-6.6); RED BLOOD COUNT 2.61 10^6/uL (4.20-5.40); RED CELL DISTRIBUTION WIDTH 16.5 % (12.0-15.0); UNCORRECTED WHITE BLOOD COUNT 8.4 x10^3/uL; WHITE BLOOD COUNT 8.4 x10^3/uL (4.8-10.8)
[2017-02-23] MEDS ORDERED: ALBUTEROL NEB 2.5 MG/3 ML INH STA (10:37)
[2017-02-23] MEDS ORDERED: HYDROmorphone 1 MG/ML SYRINGE IVP STA (10:37)
[2017-02-23 10:38] LABS: PT - PROTHROMBIN TIME 55.7 secs (9.9-12.6)
[2017-02-23] MEDS ORDERED: HYDROmorphone 1 MG/ML SYRINGE ONE (10:45)
--- NOTE | 2017-02-23 10:46 | ED Physician Documentation ---
History of Present Illness - Stated complaint Stated Complaint: SOA - Chief complaint Chief Complaint: Cardiac - Additonal information Additional information: Patient is a 46-year-old female with a history of multiple medical problems including type 1 diabetes, hypertension, end-stage renal failure on hemodialysis , anemia of chronic disease and asthma. She is here with a complaint of chest pain and shortness of breath. She has had both of these complaints since yesterday. She describes a tightness in the anterior precordium but sometimes made worse with exertion. she presented t she presented to dialysis today with this complaint and was sent in here for evaluation. She does make urine and has gone without dialysis before without any serious effects. She says that she believes she had a heart catheterization a couple months ago in [place] which is normal. She is transferred to this facility because there were no beds at [facility] her normal hospital. The patient says that she used to smoke but has not done so for several years and she was recently treated for bronchitis with amoxicillin. Review of systems: For pertinent positive and negatives in the review of systems please see the history of present illness, otherwise all other systems have been reviewed and are negative. Dragon disclaimer: Parts of this medical record were created using voice recognition technology. Because of the inherent limitations of this system, occasional same sounding word substitutions do occur and persist despite proofreading. Please read the document for context. Review of Systems Ten Systems: 10 systems reviewed and negative Constitutional: denies: Fever, Chills, Myalgias Cardiac: reports: Chest pain / pressure, Palpitations Respiratory: reports: Cough GI: denies: Abdominal Pain, Abdominal Swelling, Nausea, Vomiting : denies: Dysuria, Frequency Skin: denies: Rash PD PAST MEDICAL HISTORY - Past Medical History Cardiovascular: Hypertension, High cholesterol Respiratory: Asthma, Pneumonia, Other Neuro: CVA Endocrine/Autoimmune: Type 2 diabetes GI: GERD : Dialysis, Renal insuffiency, Other HEENT: Other Psych: Depression, Anxiety Musculoskeletal: Osteoarthritis, Chronic back pain Derm: None - Past Surgical History Past Surgical History: Yes General: Cholecystectomy, Appendectomy, Bowel surgery Ortho: Carpal Tunnel surgery, 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, 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 HEENT: Cataracts, Other - Present Medications Home Medications: Ambulatory Orders Medication Instructions Recorded Confirmed Labetalol HCl [Trandate] 100 mg PO BID 11/20/12 02/23/17 Montelukast Sodium [Singulair] 10 mg PO DAILY 11/25/12 02/23/17 raNITIdine [Zantac] 1 tab PO BID 08/22/14 02/23/17 Albuterol Sulfate [Proair 90 mcg IH Q6HR PRN 06/02/15 02/23/17 Respiclick] Loratadine 10 mg PO DAILY 06/02/15 02/23/17 Bisacodyl [Dulcolax] 10 mg PO DAILY PRN #10 tablet 09/27/16 02/23/17 Calcium Acetate 1,334 mg PO TIDWM 09/27/16 02/23/17 Citalopram [CeleXA] 0 mg PO .FREQ 09/27/16 02/23/17 Fluconazole 0 mg PO .FREQ 09/27/16 02/23/17 Fludrocortisone [Florinef] 0.2 mg PO DAILY 09/27/16 02/23/17 Furosemide [Lasix] 160 mg PO BID 09/27/16 02/23/17 Gabapentin 900 mg PO DAILY PM 09/27/16 02/23/17 Hydrocodone/Acetaminophen [Vicodin 0 mg PO .FREQ 09/27/16 02/23/17 Hp 10-300 mg Tablet] Hydroxyzine HCl 25 mg PO .FREQ 09/27/16 02/23/17 Lisinopril 2.5 mg PO DAILY 09/27/16 02/23/17 Metolazone 5 mg PO DAILY 09/27/16 02/23/17 Omeprazole 40 mg PO BID 09/27/16 02/23/17 Sertraline [Zoloft] 25 mg PO DAILY 09/27/16 02/23/17 hydrALAZINE [Apresoline] 25 mg PO BID 09/27/16 02/23/17 Albuterol Sulfate [Proair Hfa 8.5 gm IH QID #1 hfa.aer.ad 10/11/16 02/23/17 Inhaler] Baclofen 5 - 10 mg PO PRN PRN 10/11/16 02/23/17 Dexamethasone [Decadron] 4 mg PO DAILY #5 tablet 10/11/16 02/23/17 Doxycycline Hyclate 100 mg PO BID #14 tablet 10/11/16 02/23/17 Hydrocodone Bit/Homatrop Me-Br 1 each PO TID PRN #14 tablet 02/23/17 [Hydrocod-Homatrop 5-1.5 mg Tab] - Allergies Allergies/Adverse Reactions: Allergies Allergy/AdvReac Type Severity Reaction Status Date / Time No Known Drug Allergies Allergy Verified 02/23/17 10:14 - Social History Does the pt smoke?: Yes Smoking Status: Current every day smoker Does the pt drink ETOH?: No Does the pt have substance abuse?: No - Immunizations Immunizations are current?: Yes - POLST Patient has POLST: No PD ED PE NORMAL - Vitals Vital signs reviewed: Yes - General General: Alert and oriented X 3, No acute distress, Well developed/nourished, Other (Chronically ill-appearing female in no apparent distress. When she is wheeled and she was seen to be smiling. She does have a bronchospastic cough that is moderate in intensity. 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 # 0.5 Eos # 0.8 H Baso # 0.1 Absolute Nucleated RBC 0.00 Nucleated RBCs 0.0 PT 55.7 H INR 4.9 H* APTT 41.6 H Sodium 134 L Potassium 5.8 H Chloride 95 L Carbon Dioxide 28 Anion Gap 11.0 BUN 57 H Creatinine 6.6 H Estimated GFR (MDRD) 7 L Glucose 347 H Calcium 9.1 Total Bilirubin 0.8 AST 18 ALT 13 Alkaline Phosphatase 93 Troponin I B-Natriuretic Peptide Total Protein 6.8 Albumin 3.2 Globulin 3.6 Albumin/Globulin Ratio 0.9 L Lipase 49 02/23/17 02/23/17 02/23/17 10:20 10:20 12:32 WBC RBC Hgb Hct MCV MCH MCHC RDW Plt Count MPV Neut # Lymph # [place] # Eos # Baso # Absolute Nucleated RBC Nucleated RBCs PT INR APTT Sodium Potassium Chloride Carbon Dioxide Anion Gap BUN Creatinine Estimated GFR (MDRD) Glucose Calcium Total Bilirubin AST ALT Alkaline Phosphatase Troponin I 0.14 0.16 B-Natriuretic Peptide 4506 H Total Protein Albumin Globulin Albumin/Globulin Ratio Lipase PD MEDICAL DECISION MAKING - ED course Complexity details: reviewed old records, reviewed results, re-evaluated patient , considered differential, d/w patient, d/w sales development consultant ED course: 46-year-old lady with a long history of type 1 diabetes, hypertension, asthma, end-stage renal failure on hemodialysis who presents with a day and a half of chest pain and shortness of breath. She has a very dry bronchospastic cough here in emergency department. The chest x-ray shows mild pulmonary vascular congestion although this is very subtle my opinion. EKG on this patient shows normal sinus rhythm interspersed with regular infranodal beats consistent with bigeminy and trigeminy.. She does have a short MA interval however in the normally conducted beats there is no evidence of any ST elevation depression or T-wave inversion. Blood work on this patient shows a potassium that is elevated at 5.8. She was given albuterol nebulized treatment, a dose of insulin since her glucose was already elevated, calcium chloride, and Kayexalate. The rest of her labs are unremarkable. She is given a breathing treatment but failed to really improve her bronchospastic cough but responded nicely to intravenous Dilaudid. I reviewed the patient's records. I did obtain that report and she had a heart catheterization in November 2016 which showed one lesion in LAD of 50% otherwise no significant other coronary artery lesions were found. The patient did well her cardiac troponin initially and repeat were both normal. Her BNP is significantly elevated at 4000 but clinically she is doing well she is normoxic and in no distress. Rely think for the most part this patient probably has a viral type bronchitis. She just finished antibiotics but this did not improve her symptoms significantly. I did discuss the case with her manager performance who knows her well. He did mention that she typically is very hyperkalemic and believes that she is fine to go home and get dialysis either today or early tomorrow morning. This was discussed with the patient she feels much better she is no longer coughing will have her go home and get dialysis tomorrow I did instruct her if she has any problems and cannot get dialysis tomorrow then she should return to the emergency department immediately. Disposition: To home Clinical impression: 1. Cough doubt cardiac cause probably viral bronchitis 2. Chest pain off and on for 1 day. No evidence of ACS or unstable angina. Reviewed recent heart catheterization November 2016 3. Hyperkalemia-treated. Patient has a history of hyperkalemia and is probably fairly resistant. She was treated here in emergency department will get dialysis this afternoon or early tomorrow morning or will return Departure - Departure Disposition: 01 Home, Self Care Clinical Impression: Dyspnea and respiratory abnormality Condition: Good Instructions: ED Dyspnea Shortness of Breath Prescriptions: Hydrocodone Bit/Homatrop Me-Br [Hydrocod-Homatrop 5-1.5 mg Tab] 1 each PO TID PRN #14 tablet PRN Reason: Cough Comments: Please arrange for dialysis this afternoon or early tomorrow morning. If you have any problems getting dialysis please return to the emergency department. If you get worse in any way please return to the emergency department
[2017-02-23 10:50] LABS: ALBUMIN/GLOBULIN RATIO 0.9 (1.0-2.2); BILIRUBIN,TOTAL 0.8 mg/dL (0.2-1.0); CALCIUM 9.1 mg/dL (8.5-10.3); CREATININE 6.6 mg/dL (0.4-1.0); POTASSIUM 5.8 mmol/L (3.5-5.0); TOTAL PROTEIN 6.8 g/dL (6.7-8.2)
[2017-02-23 10:52] LABS: PARTIAL THROMBOPLASTIN TIME 41.6 secs (24.9-33.3)
[2017-02-23] MEDS ORDERED: ALBUTEROL NEB 2.5 MG/3 ML INH ONE (10:55)
[2017-02-23 10:56] LABS: INR 4.9 (0.8-1.2)
[2017-02-23] MEDS ORDERED: INSULIN REGULAR HUMAN 100 UNIT/1 ML 10 ML MDV IVP STA (11:25)
[2017-02-23] MEDS ORDERED: CALCIUM GLUCONATE 1000 MG/10 ML VIAL IVP STA (11:26)
--- NOTE | 2017-02-23 11:35 | XRAY Preliminary Report ---
Exam: XR Chest 1 View IMPRESSION: Pulmonary vascular congestion. Otherwise negative. [facility] SITE ID: [id number]
[2017-02-23] MEDS ORDERED: SODIUM POLYSTYRENE SULFONATE 15 GM/60 ML BOTTLE PO STA (11:36)
[2017-02-23] MEDS ORDERED: CALCIUM GLUCONATE 1000 MG/10 ML VIAL ONE (11:37)
--- NOTE | 2017-02-23 11:37 | XRAY Report ---
EXAM: CHEST RADIOGRAPHY EXAM DATE: 02/23/2017 10:57 AM. CLINICAL HISTORY: Dyspnea. COMPARISON: 01/19/2017 TECHNIQUE: 1 view. FINDINGS: Lungs/Pleura: Pulmonary vascular redistribution and congestion. No focal opacities evident. No pleura l effusion. No pneumothorax. Mediastinum: Apparent cardiac enlargement some of which is due to the AP technique. Other: Healed deformity bilateral ribs. IMPRESSION: Pulmonary vascular congestion. Otherwise negative. [facility] Referring Provider Line: [phone] SITE ID: [id number]
[2017-02-23] MEDS ORDERED: INSULIN REGULAR HUMAN 100 UNIT/1 ML 10 ML MDV ONE (11:38)
[2017-02-23] MEDS ORDERED: SODIUM POLYSTYRENE SULFONATE 15 GM/60 ML BOTTLE ONE (11:46)
[2017-02-23 15:08] VITALS: BP 148/51
== END 2017-02-23 15:38 | disposition home or self-care (01) ==
LOC: EDUNIT# → ED 10:05
DX: R06.02 Shortness of breath (principal); E10.22 Type 1 diabetes mellitus with diabetic chronic kidney disease; N18.6 End stage renal disease; I12.0 Hypertensive chronic kidney disease with stage 5 chronic kidney disease or end stage renal disease; R00.2 Palpitations; J45.909 Unspecified asthma, uncomplicated; F17.200 Nicotine dependence, unspecified, uncomplicated; Z99.2 Dependence on renal dialysis
CPT/HCPCS: 36415; 71010; 80053; 83690; 83880; 84484; 85025; 85610; 85730; 93005; 94640; 96374; 96375; 99283; 99285; A9270; J1170; J1815; J7613

== ENCOUNTER 2017-03-20 16:46 | Outpatient (CLI) | payer MEDICAID | END 2017-03-20 16:47 | disposition short-term general hospital (02) | LOC: EMS 16:46 | PROVIDERS: ATTEND Surgery | DX: R06.02 Shortness of breath (principal) | CPT/HCPCS: A0425; A0427 ==

== ENCOUNTER 2017-04-11 07:52 | Outpatient (CLI) | payer MEDICAID | END 2017-04-11 07:53 | disposition critical access hospital (66) | LOC: EMS 07:52 | PROVIDERS: ATTEND Surgery | DX: S91.115A Laceration without foreign body of left lesser toe(s) without damage to nail, initial encounter (principal); R42 Dizziness and giddiness; W45.8XXA Other foreign body or object entering through skin, initial encounter; Y93.E8 Activity, other personal hygiene; Y92.039 Unspecified place in apartment as the place of occurrence of the external cause | CPT/HCPCS: A0425; A0427 ==

== ENCOUNTER 2017-04-11 08:15 | Emergency (ER) | payer MEDICAID ==
[2017-04-11 09:58] LABS: BASOPHILS # (AUTO) 0.1 10^3/uL (0.0-0.1); BASOPHILS % (AUTO) 1.2 %; EOSINOPHILS # (AUTO) 0.8 10^3/uL (0.0-0.7); EOSINOPHILS % (AUTO) 12.5 %; HCT - HEMATOCRIT 24.7 % (37.0-47.0); HGB - HEMOGLOBIN 8.1 g/dL (12.0-16.0); LYMPHOCYTES # (AUTO) 0.8 10^3/uL (1.5-3.5); LYMPHOCYTES % (AUTO) 11.3 %; MEAN CORPUSCULAR HEMOGLOBIN 30.7 pg (27.0-31.0); MEAN CORPUSCULAR HGB CONC 32.8 g/dL (32.0-36.0); MEAN CORPUSCULAR VOLUME 93.7 fL (81.0-99.0); MEAN PLATELET VOLUME 9.1 fL (7.9-10.8); MONOCYTES # (AUTO) 0.4 10^3/uL (0.0-1.0); MONOCYTES % (AUTO) 6.3 %; NEUTROPHILS # (AUTO) 4.6 10^3/uL (1.5-6.6); NEUTROPHILS % (AUTO) 68.7 %; RED BLOOD COUNT 2.63 10^6/uL (4.20-5.40); RED CELL DISTRIBUTION WIDTH 16.6 % (12.0-15.0); UNCORRECTED WHITE BLOOD COUNT 6.7 x10^3/uL; WHITE BLOOD COUNT 6.7 x10^3/uL (4.8-10.8)
[2017-04-11 10:01] LABS: PT - PROTHROMBIN TIME 67.8 secs (9.9-12.6)
[2017-04-11 10:09] LABS: ALBUMIN/GLOBULIN RATIO 0.9 (1.0-2.2); BILIRUBIN,TOTAL 0.8 mg/dL (0.2-1.0); CALCIUM 8.4 mg/dL (8.5-10.3); INR 5.9 (0.8-1.2); MAGNESIUM 2.4 mg/dL (1.7-2.8); POTASSIUM 4.3 mmol/L (3.5-5.0); TOTAL PROTEIN 6.6 g/dL (6.7-8.2)
[2017-04-11 10:11] LABS: CREATININE 8.1 mg/dL (0.4-1.0)
--- NOTE | 2017-04-11 11:46 | ED Physician Documentation ---
History of Present Illness - Stated complaint Stated Complaint: TOE BLEED - Chief complaint Chief Complaint: Ext Problem - History obtained from History obtained from: Patient - History of Present Illness Timing: Today - Additonal information Additional information: 46-year-old female type I diabetic with end-stage renal disease on dialysis was trimming her toes this morning when she cut too deep on the nail and she has persistent bleeding from the left small toe. Review of Systems Constitutional: denies: Fever Eyes: reports: Decreased vision Nose: denies: Congestion Throat: denies: Sore throat Cardiac: denies: Chest pain / pressure Respiratory: denies: Cough GI: denies: Abdominal Pain, Vomiting Skin: reports: Laceration (s) (toe) Musculoskeletal: reports: Extremity pain, Joint pain (to the right foot.), Pain with weight bearing Neurologic: denies: Generalized weakness, Focal weakness PD PAST MEDICAL HISTORY - Past Medical History Cardiovascular: Hypertension, High cholesterol Respiratory: Asthma, Pneumonia, Other Neuro: CVA Endocrine/Autoimmune: Type 2 diabetes GI: GERD : Dialysis, Renal insuffiency, Other HEENT: Other Psych: Depression, Anxiety Musculoskeletal: Osteoarthritis, Chronic back pain Derm: None Other Past Medical History: chronic nose bleed - Past Surgical History Past Surgical History: Yes General: Cholecystectomy, Appendectomy, Bowel surgery Ortho: Carpal Tunnel surgery, 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, 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 HEENT: Cataracts, Other - Present Medications Home Medications: Ambulatory Orders Medication Instructions Recorded Confirmed Labetalol HCl [Trandate] 100 mg PO BID 11/20/12 04/11/17 Montelukast Sodium [Singulair] 10 mg PO DAILY 11/25/12 04/11/17 raNITIdine [Zantac] 1 tab PO BID 08/22/14 04/11/17 Albuterol Sulfate [Proair 90 mcg IH Q6HR PRN 06/02/15 04/11/17 Respiclick] Loratadine 10 mg PO DAILY 06/02/15 04/11/17 Bisacodyl [Dulcolax] 10 mg PO DAILY PRN #10 tablet 09/27/16 04/11/17 Calcium Acetate 1,334 mg PO TIDWM 09/27/16 04/11/17 Furosemide [Lasix] 160 mg PO BID 09/27/16 04/11/17 Gabapentin 900 mg PO DAILY PM 09/27/16 04/11/17 Hydrocodone/Acetaminophen [Vicodin 0 mg PO .FREQ 09/27/16 04/11/17 Hp 10-300 mg Tablet] Hydroxyzine HCl 25 mg PO .FREQ 09/27/16 04/11/17 Lisinopril 2.5 mg PO DAILY 09/27/16 04/11/17 Metolazone 5 mg PO DAILY 09/27/16 04/11/17 Omeprazole 40 mg PO BID 09/27/16 04/11/17 Sertraline [Zoloft] 25 mg PO DAILY 09/27/16 04/11/17 hydrALAZINE [Apresoline] 25 mg PO BID 09/27/16 04/11/17 Albuterol Sulfate [Proair Hfa 8.5 gm IH QID #1 hfa.aer.ad 10/11/16 04/11/17 Inhaler] Baclofen 5 - 10 mg PO PRN PRN 10/11/16 04/11/17 Hydrocodone Bit/Homatrop Me-Br 1 each PO TID PRN #14 tablet 02/23/17 04/11/17 [Hydrocod-Homatrop 5-1.5 mg Tab] Levofloxacin [Levaquin] 500 mg PO DAILY #7 tablet 04/11/17 - Allergies Allergies/Adverse Reactions: Allergies Allergy/AdvReac Type Severity Reaction Status Date / Time No Known Drug Allergies Allergy Verified 02/23/17 10:14 - Social History Does the pt smoke?: Yes Smoking Status: Current every day smoker Does the pt drink ETOH?: No Does the pt have substance abuse?: No - Immunizations Immunizations are current?: Yes - POLST Patient has POLST: No PD ED PE NORMAL - Vitals Vital signs reviewed: Yes (hypertensive ) - General General: No acute distress, Well developed/nourished - HEENT HEENT: Atraumatic - Respiratory Respiratory: No respiratory distress - Derm Derm: Normal color, Warm and dry, No rash - Extremities Extremities: No deformity, Other (There is point tenderness to the dorsum of the right foot without deformitiy or crepitance. Over the tip of the left 5th toe there is a superficial laceration that continues to bleed/ooze. This is cauterized with silver nitrate with hemostasis ) - Neuro Neuro: No motor deficit - Psych Psych: Normal mood, Normal affect Results - Vitals Vitals: Vital Signs - 24 hr 04/11/17 04/11/17 04/11/17 08:17 10:08 11:07 Temperature 36.3 C L 36.1 C L 36.5 C Heart Rate 70 74 75 Respiratory 16 18 18 Rate Blood Pressure 192/70 H 161/53 H 182/62 H O2 Saturation 97 100 96 04/11/17 12:31 Temperature 36.9 C Heart Rate 42 L Respiratory 15 Rate Blood Pressure 192/64 H O2 Saturation 96 Oxygen O2 Source Room air - Labs Labs: Laboratory Tests 04/11/17 04/11/17 04/11/17 09:46 09:46 09:46 WBC 6.7 RBC 2.63 L Hgb 8.1 L Hct 24.7 L MCV 93.7 MCH 30.7 MCHC 32.8 RDW 16.6 H Plt Count 193 MPV 9.1 Neut # 4.6 Lymph # 0.8 L [place] # 0.4 Eos # 0.8 H Baso # 0.1 Absolute Nucleated RBC 0.00 Nucleated RBC % 0.0 PT 67.8 H INR 5.9 H* Sodium 136 Potassium 4.3 Chloride 95 L Carbon Dioxide 23 Anion Gap 18.0 H BUN 74 H Creatinine 8.1 H* Estimated GFR (MDRD) 5 L Glucose 172 H Calcium 8.4 L Magnesium 2.4 Total Bilirubin 0.8 AST 21 ALT 13 Alkaline Phosphatase 87 Total Protein 6.6 L Albumin 3.2 Globulin 3.4 Albumin/Globulin Ratio 0.9 L Lipase 32 - Rads (name of study) Right foot Radiology: Prelim report reviewed (Impression: Minimally displaced transverse fracture at the proximal fifth metatarsal.), EMP read indepedently, See rad report Procedures - IVC sono (time) 0845 Bedside IVC sono: IVC measures (cm) (1.98), Euvolemia PD MEDICAL DECISION MAKING - ED course Complexity details: reviewed results, re-evaluated patient, considered differential, d/w patient ED course: 46-year-old type I diabetic on Hemodialysis has cut her left fifth toe and has some persistent bleeding. Her INR is 5.9. The bleeding is controlled with silver nitrate. She will need to discontinue her Coumadin for 2 days and she will need to get to her dialysis appointment today. She does have further complaints including a persistent cough and bleeding from the right ear that happened last week as well as a pain in her right foot for the past 5 weeks. She states that she stepped on it wrong and heard a pop 5 weeks ago and wants an x-ray of the foot. Here in the emergency department the x-rays taken and there is evidence of a fracture of the proximal fifth. The cough triggered reexamination of the patient including examination of the ears and with that the patient does have erythema to both TMs with distortion of landmarks. She has persistent cough and she has failed azithromycin and Augmentin we will put her on some Levaquin. She will be off of her coumadin for the next 2 days Departure - Departure Disposition: 01 Home, Self Care Clinical Impression: Elevated INR Laceration of toe Qualifiers: Encounter type: initial encounter Toe: lesser toe Damage to nail status: without damage Foreign body presence: without foreign body Laterality: left Qualified Code(s): S91.115A - Laceration without foreign body of left lesser toe (s) without damage to nail, initial encounter Otitis media Qualifiers: Otitis media type: suppurative Chronicity: acute Laterality: bilateral Recurrence: not specified as recurrent Spontaneous tympanic membrane rupture: without spontaneous rupture Qualified Code(s): H66.003 - Acute suppurative otitis media without spontaneous rupture of ear drum, bilateral Metatarsal fracture Qualifiers: Encounter type: initial encounter Metatarsal bone: fifth Fracture type: closed Fracture alignment: nondisplaced Laterality: right Qualified Code(s): S92.354A - Nondisplaced fracture of fifth metatarsal bone, right foot, initial encounter for closed fracture Condition: Stable Instructions: International Normalized Ratio, ED Abrasion, ED Fx Foot, ED Otitis Media Acute Adult Follow-Up: Lorie Glynn ARNP [Primary Care Provider] - [facility] [Provider Group] Prescriptions: Levofloxacin [Levaquin] 500 mg PO DAILY #7 tablet Comments: Today your INR was elevated beyond where it should be. This indicates you are taking too much Coumadin. Stop your dose for the next 2 days. Follow-up with your primary care doctor prior to resuming your Coumadin.
[2017-04-11] MEDS ORDERED: SODIUM CHLORIDE FLUSH 0.9% 10 ML SYRINGE IVP ONE (12:01)
[2017-04-11 12:32] VITALS: BP 192/64
[2017-04-11] MEDS ORDERED: HYDROmorphone 1 MG/ML CARPUJECT IVP STA (12:38)
[2017-04-11] MEDS ORDERED: ONDANSETRON 4 MG/2 ML VIAL IVP STA (12:38)
--- NOTE | 2017-04-11 12:38 | XRAY Preliminary Report ---
Exam: XR Foot 3 View RT IMPRESSION: Minimally displaced transverse fracture at the proximal fifth metatarsal. [facility] SITE ID: [id number]
--- NOTE | 2017-04-11 12:40 | XRAY Report ---
EXAM: RIGHT FOOT RADIOGRAPHY EXAM DATE: 04/11/2017 12:15 PM. CLINICAL HISTORY: Chronic pain is worse. COMPARISON: None. TECHNIQUE: 3 views. FINDINGS: Bones: Transverse fracture at the proximal aspect of the fifth metatarsal with small amount of displa cement measuring approximately 2 mm. No bulky callus formation. Mild apparent bony demineralization. Partially visualized fixation hardware of the ankle appears intact. Joints: No dislocation identified. Soft Tissues: Atherosclerotic vascular calcification. IMPRESSION: Minimally displaced transverse fracture at the proximal fifth metatarsal. [facility] Referring Provider Line: [phone] SITE ID: [id number]
[2017-04-11] MEDS ORDERED: HYDROmorphone 1 MG/ML CARPUJECT ONE (12:46)
[2017-04-11] MEDS ORDERED: ONDANSETRON 4 MG/2 ML VIAL ONE (12:47)
== END 2017-04-11 13:17 | disposition home or self-care (01) ==
LOC: EDUNIT# → ED 08:15
DX: S91.115A Laceration without foreign body of left lesser toe(s) without damage to nail, initial encounter (principal); S92.354A Nondisplaced fracture of fifth metatarsal bone, right foot, initial encounter for closed fracture; W45.8XXA Other foreign body or object entering through skin, initial encounter; Y93.89 Activity, other specified; H66.003 Acute suppurative otitis media without spontaneous rupture of ear drum, bilateral; E78.00 Pure hypercholesterolemia, unspecified; E10.22 Type 1 diabetes mellitus with diabetic chronic kidney disease; I12.0 Hypertensive chronic kidney disease with stage 5 chronic kidney disease or end stage renal disease; N18.6 End stage renal disease; F17.200 Nicotine dependence, unspecified, uncomplicated; Z99.2 Dependence on renal dialysis; Z86.73 Personal history of transient ischemic attack (TIA), and cerebral infarction without residual deficits
CPT/HCPCS: 36415; 73630; 80053; 83690; 83735; 85025; 85610; 96374; 96375; 99284; J1170

== ENCOUNTER 2017-05-08 06:40 | Outpatient (CLI) | payer MEDICAID | END 2017-05-08 06:41 | disposition short-term general hospital (02) | LOC: EMS 06:40 | PROVIDERS: ATTEND Surgery | DX: R07.9 Chest pain, unspecified (principal); R06.02 Shortness of breath; R05 Cough | CPT/HCPCS: A0170; A0425; A0427 ==

== ENCOUNTER 2017-05-15 10:54 | Outpatient (CLI) | payer MEDICAID ==
--- NOTE | 2017-05-15 14:02 | CT Report ---
CT SINUSES WITHOUT CONTRAST: 05/15/2017 CLINICAL INDICATION: Sinus infection. TECHNIQUE: Axial CT images of the paranasal sinuses were obtained without contrast, following which sagittal and coronal reconstructions were performed. In accordance with CT protocol optimization, one or more of the following dose reduction techniques w ere utilized for this exam: automated exposure control, adjustment of mA and/or KV based on patient size, or use of iterative reconstructive technique. FINDINGS: There is mucosal thickening in the maxillary sinuses, left greater than right. The ostiom eatal units are patent bilaterally. The ethmoid air cells, frontal sinuses, and sphenoid sinus are c lear. The nasal septum is midline. Postoperative changes are noted in the right globe, stable from 10/18/[address] No osseous destruction is seen. IMPRESSION: CHRONIC MAXILLARY SINUS DISEASE, LEFT GREATER THAN RIGHT. JOB #: [id number] EXT JOB #:[id number]
== END 2017-05-15 10:55 | disposition home or self-care (01) ==
LOC: DI 10:54
PROVIDERS: ATTEND Nurse Practitioner Family
DX: J32.0 Chronic maxillary sinusitis (principal)
CPT/HCPCS: 70486

== ENCOUNTER 2017-07-17 17:21 | Outpatient (CLI) | payer MEDICAID | END 2017-07-17 17:22 | disposition short-term general hospital (02) | LOC: EMS 17:21 | PROVIDERS: ATTEND Surgery | DX: R06.00 Dyspnea, unspecified (principal) | CPT/HCPCS: A0170; A0425; A0427 ==

== ENCOUNTER 2017-07-21 15:23 | Outpatient (CLI) | payer MEDICAID ==
--- NOTE | 2017-07-21 16:55 | XRAY Preliminary Report ---
Exam: XR ANKLE 3 VIEW RT IMPRESSION: 1. No acute osseous abnormality. Surgical hardware appears intact. [facility] SITE ID: [id number]
--- NOTE | 2017-07-21 16:56 | XRAY Report ---
EXAM: RIGHT ANKLE RADIOGRAPHY EXAM DATE: 07/21/2017 03:40 PM. CLINICAL HISTORY: OTHER SPECIFIED INJURY OF ANKLE AND FOOT. COMPARISON: None. TECHNIQUE: 3 views. FINDINGS: Bones: Status post bimalleolar ORIF. Surgical hardware appears intact. No acute fracture. No focal os seous lesion. Joints: Unremarkable. Soft Tissues: Unremarkable. IMPRESSION: 1. No acute osseous abnormality. Surgical hardware appears intact. [facility] Referring Provider Line: [phone] SITE ID: [id number]
== END 2017-07-21 15:24 | disposition home or self-care (01) ==
LOC: DI.S 15:23
PROVIDERS: ATTEND Nurse Practitioner Family
DX: S96.2 Injury of intrinsic muscle and tendon at ankle and foot level (principal)

== ENCOUNTER 2017-08-06 19:59 | Outpatient (CLI) | payer MEDICAID | END 2017-08-06 20:00 | disposition short-term general hospital (02) | LOC: EMS 19:59 | PROVIDERS: ATTEND Surgery | DX: R06.00 Dyspnea, unspecified (principal); R53.83 Other fatigue; Z99.2 Dependence on renal dialysis | CPT/HCPCS: A0170; A0425; A0429 ==

== ENCOUNTER 2017-08-29 17:49 | Outpatient (CLI) | payer MEDICAID | END 2017-08-29 17:50 | disposition short-term general hospital (02) | LOC: EMS 17:49 | PROVIDERS: ATTEND Surgery | DX: R51 Headache (principal); R42 Dizziness and giddiness; R11.0 Nausea; Z99.2 Dependence on renal dialysis | CPT/HCPCS: A0170; A0425; A0427 ==

== ENCOUNTER 2017-09-14 17:05 | Outpatient (CLI) | payer MEDICAID | END 2017-09-14 17:06 | disposition critical access hospital (66) | LOC: EMS 17:05 | PROVIDERS: ATTEND Surgery | DX: R50.9 Fever, unspecified (principal); R04.2 Hemoptysis; R06.00 Dyspnea, unspecified; Z99.2 Dependence on renal dialysis | CPT/HCPCS: A0425; A0429 ==

== ENCOUNTER 2017-09-14 17:34 | Emergency (ER) | payer MEDICAID ==
--- NOTE | 2017-09-14 17:57 | ED Physician Documentation ---
PD HPI DYSPNEA - Stated complaint Stated Complaint: COUGHING UP BLOOD - History obtained from History obtained from: Patient - History of Present Illness Timing - onset: Other (47-year-old woman on dialysis, Monday, , Monday. She is anticoagulated and stopped her Coumadin yesterday for supratherapeutic INR. Since yesterday she has had severe chills with cough and hemoptysis and shortness of breath. She had a fever of 101.7 at dialysis and they administered her 2 g of ceftazidime and vancomycin.) Review of Systems Ten Systems: 10 systems reviewed and negative Constitutional: reports: Fever, Chills Nose: denies: Rhinorrhea / runny nose, Congestion Cardiac: denies: Chest pain / pressure Respiratory: reports: Dyspnea, Cough GI: denies: Abdominal Pain PD PAST MEDICAL HISTORY - Past Medical History Cardiovascular: Hypertension, High cholesterol Respiratory: Asthma, Pneumonia, Other Neuro: CVA Endocrine/Autoimmune: Type 2 diabetes GI: GERD : Dialysis, Renal insuffiency, Other HEENT: Other Psych: Depression, Anxiety Musculoskeletal: Osteoarthritis, Chronic back pain Derm: None - Past Surgical History Past Surgical History: Yes General: Cholecystectomy, Appendectomy, Bowel surgery Ortho: Carpal Tunnel surgery, 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, 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 HEENT: Cataracts, Other - Present Medications Home Medications: Ambulatory Orders Medication Instructions Recorded Confirmed Labetalol HCl [Trandate] 100 mg PO BID 11/20/12 04/11/17 Montelukast Sodium [Singulair] 10 mg PO DAILY 11/25/12 04/11/17 raNITIdine [Zantac] 1 tab PO BID 08/22/14 04/11/17 Albuterol Sulfate [Proair 90 mcg IH Q6HR PRN 06/02/15 04/11/17 Respiclick] Loratadine 10 mg PO DAILY 06/02/15 04/11/17 Bisacodyl [Dulcolax] 10 mg PO DAILY PRN #10 tablet 09/27/16 04/11/17 Calcium Acetate 1,334 mg PO TIDWM 09/27/16 04/11/17 Furosemide [Lasix] 160 mg PO BID 09/27/16 04/11/17 Gabapentin 900 mg PO DAILY PM 09/27/16 04/11/17 Hydrocodone/Acetaminophen [Vicodin 0 mg PO .FREQ 03/14/17 09/26/17 Hp 10-300 mg Tablet] Lisinopril 2.5 mg PO DAILY 09/27/16 04/11/17 Omeprazole 40 mg PO BID 09/27/16 04/11/17 Sertraline [Zoloft] 25 mg PO DAILY 09/27/16 04/11/17 hydrALAZINE [Apresoline] 25 mg PO BID 09/27/16 04/11/17 hydrOXYzine HCl [Hydroxyzine HCl] 25 mg PO .FREQ 09/27/16 04/11/17 metOLazone [Metolazone] 5 mg PO DAILY 09/27/16 04/11/17 Albuterol Sulfate [Proair Hfa 8.5 gm IH QID #1 hfa.aer.ad 10/11/16 04/11/17 Inhaler] Baclofen 5 - 10 mg PO PRN PRN 10/11/16 04/11/17 Hydrocodone Bit/Homatrop Me-Br 1 each PO TID PRN #14 tablet 02/23/17 04/11/17 [Hydrocod-Homatrop 5-1.5 mg Tab] Levofloxacin [Levaquin] 500 mg PO DAILY #7 tablet 04/11/17 - Allergies Allergies/Adverse Reactions: Allergies Allergy/AdvReac Type Severity Reaction Status Date / Time No Known Drug Allergies Allergy Verified 02/23/17 10:14 - Social History Does the pt smoke?: Yes Smoking Status: Current every day smoker Does the pt drink ETOH?: No Does the pt have substance abuse?: No - Immunizations Immunizations are current?: Yes - POLST Patient has POLST: No PD ED PE NORMAL - Vitals Vital signs reviewed: Yes - General General: Alert and oriented X 3, No acute distress - HEENT HEENT: PERRL, EOMI - Neck Neck: Supple, no meningeal sign, No bony TTP - Cardiac Cardiac: RRR, No murmur - Respiratory Respiratory: Other (Slightly breathless, diminished with crackles at the right base.) - Abdomen Abdomen: Soft, Non tender - Back Back: No CVA TTP, No spinal TTP - Derm Derm: Normal color, Warm and dry - Extremities Extremities: Other (Trace pitting pedal edema, symmetric) - Neuro Neuro: Alert and oriented X 3, Normal speech - Psych Psych: Normal mood, Normal affect Results - Vitals Vitals: Vital Signs - 24 hr 09/14/17 17:58 Temperature 38.9 C H Heart Rate 84 Respiratory 16 Rate Blood Pressure 170/66 H O2 Saturation 93 Oxygen O2 Source Room air - EKG (time done) 1816 Rate: Rate (enter#) (81) Rhythm: NSR Sandwich: Normal Intervals: Normal MN QRS: Normal Ischemia: Non specific changes (T-wave flattening, especially inferior and lateral) Computer interpretation: Agree with computer - Labs Labs: Laboratory Tests 09/14/17 09/14/17 09/14/17 18:12 18:17 18:17 WBC 9.6 RBC 2.44 L Hgb 7.6 L Hct 22.9 L MCV 93.9 MCH 31.1 H MCHC 33.1 RDW 18.1 H Plt Count 190 MPV 8.4 Neut # 8.8 H Lymph # 0.3 L [place] # 0.4 Eos # 0.0 Baso # 0.0 Absolute Nucleated RBC 0.00 Nucleated RBC % 0.0 PT INR Sodium 129 L Potassium 3.7 Chloride 86 L Carbon Dioxide 27 Anion Gap 16.0 H BUN 30 H Creatinine 3.3 H Estimated GFR (MDRD) 15 L Glucose 197 H Lactic Acid Calcium 8.1 L Total Bilirubin 1.1 H AST 16 ALT < 10 L Alkaline Phosphatase 251 H Total Creatine Kinase 54 CK-MB (CK-2) Troponin I Total Protein 6.8 Albumin 2.7 L Globulin 4.1 Albumin/Globulin Ratio 0.7 L Lipase 12 L Influenza A (Rapid) Negative Influenza B (Rapid) Negative Influenza Types A,B Ag - 09/14/17 09/14/17 09/14/17 18:17 18:17 18:17 WBC RBC Hgb Hct MCV MCH MCHC RDW Plt Count MPV Neut # Lymph # [place] # Eos # Baso # Absolute Nucleated RBC Nucleated RBC % PT 21.0 H INR 1.9 H Sodium Potassium Chloride Carbon Dioxide Anion Gap BUN Creatinine Estimated GFR (MDRD) Glucose Lactic Acid 1.1 Calcium Total Bilirubin AST ALT Alkaline Phosphatase Total Creatine Kinase CK-MB (CK-2) 2.1 Troponin I 0.26 Total Protein Albumin Globulin Albumin/Globulin Ratio Lipase Influenza A (Rapid) Influenza B (Rapid) Influenza Types A,B Ag - Rads (name of study) 2v chest Radiology: EMP read contemporaneously (Diffuse bronchial wall thickening) PD MEDICAL DECISION MAKING - ED course ED course: 47-year-old woman presents from dialysis with a fever, she already received ceftazidime and vancomycin there. Blood cultures were drawn. Her white count is normal and she does not have the flu. No lobar infiltrate on x-ray. Her troponin is up which is a little concerning that her EKG is not changed from prior. Given her underlying comorbidities probably deserves at least one night in the hospital and following her blood cultures. Given her dialysis dependence and the fact that she was told the dialysis today that she would need another run tomorrow [facility] was called for transfer at 6:50 PM. She was accepted by Dr. Ellis to [facility] at 8:30 PM and cobras were completed. Departure - Departure Disposition: 02 Transfer Acute Care Hosp Clinical Impression: Bronchitis, Dyspnea and respiratory abnormality Chest pain Qualifiers: Chest pain type: unspecified Qualified Code(s): R07.9 - Chest pain, unspecified Renal failure Qualifiers: Renal failure chronicity: chronic Chronic kidney disease stage: on chronic dialysis Qualified Code(s): N18.6 - End stage renal disease Condition: Serious
[2017-09-14] MEDS ORDERED: ACETAMINOPHEN 325 MG TABLET PO STA (17:58)
[2017-09-14 18:24] LABS: EOSINOPHILS % (AUTO) 0.4 %; HGB - HEMOGLOBIN 7.6 g/dL (12.0-16.0); LYMPHOCYTES # (AUTO) 0.3 10^3/uL (1.5-3.5); LYMPHOCYTES % (AUTO) 3.2 %; MEAN CORPUSCULAR HEMOGLOBIN 31.1 pg (27.0-31.0); MEAN CORPUSCULAR HGB CONC 33.1 g/dL (32.0-36.0); MEAN CORPUSCULAR VOLUME 93.9 fL (81.0-99.0); MEAN PLATELET VOLUME 8.4 fL (7.9-10.8); MONOCYTES # (AUTO) 0.4 10^3/uL (0.0-1.0); MONOCYTES % (AUTO) 4.5 %; NEUTROPHILS # (AUTO) 8.8 10^3/uL (1.5-6.6); NEUTROPHILS % (AUTO) 91.9 %; PLT - PLATELET COUNT 190 10^3/uL (130-450); RED BLOOD COUNT 2.44 10^6/uL (4.20-5.40); RED CELL DISTRIBUTION WIDTH 18.1 % (12.0-15.0); WHITE BLOOD COUNT 9.6 x10^3/uL (4.8-10.8)
--- NOTE | 2017-09-14 18:25 | XRAY Report ---
EXAM: CHEST RADIOGRAPHY EXAM DATE: 09/14/2017 06:13 PM. CLINICAL HISTORY: Cough. COMPARISON: 02/23/2017 chest x-ray. TECHNIQUE: 2 views. FINDINGS: Lungs/Pleura: No confluent lung consolidation. There is diffuse bronchial thickening. No pleural effu [place] or pneumothorax. Mediastinum: Heart and mediastinal contours are unremarkable. Other: None. IMPRESSION: Diffuse bronchial thickening suggesting reactive airway disease or bronchitis. [facility] Referring Provider Line: [phone] SITE ID: [id number]
--- NOTE | 2017-09-14 18:25 | XRAY Preliminary Report ---
Exam: XR CHEST 2 VIEW X-RAY IMPRESSION: Diffuse bronchial thickening suggesting reactive airway disease or bronchitis. [facility] SITE ID: [id number]
[2017-09-14 18:37] LABS: INR 1.9 (0.8-1.2)
[2017-09-14 18:39] LABS: ALBUMIN 2.7 g/dL (3.2-5.5); ALBUMIN/GLOBULIN RATIO 0.7 (1.0-2.2); ALKALINE PHOSPHATASE 251 IU/L (42-121); ALT ALANINE AMINOTRANSFERASE < 10 IU/L (10-60); AST ASPARTATE AMINOTRANSFERASE 16 IU/L (10-42); BILIRUBIN,TOTAL 1.1 mg/dL (0.2-1.0); BUN - BLOOD UREA NITROGEN 30 mg/dL (6-20); CALCIUM 8.1 mg/dL (8.5-10.3); CARBON DIOXIDE - CO2 27 mmol/L (21-32); CHLORIDE 86 mmol/L (101-111); CK- CREATINE KINASE 54 IU/L (22-269); CREATININE 3.3 mg/dL (0.4-1.0); GFR - MDRD 15 (>89); GLUCOSE 197 mg/dL (70-100); LIPASE 12 U/L (22-51); SODIUM 129 mmol/L (135-145); TOTAL PROTEIN 6.8 g/dL (6.7-8.2)
[2017-09-14 18:43] LABS: TROPONIN I 0.26 ng/mL (<0.49)
[2017-09-14 18:45] LABS: CREATINE KINASE MB 2.1 ng/mL (0.6-6.3)
[2017-09-14] MEDS ORDERED: HYDROmorphone 1 MG/ML SYRINGE IVP STA ×3 (18:49→21:39)
[2017-09-14] MEDS ORDERED: ASPIRIN CHEW 81 MG TABLET PO STA (18:49)
[2017-09-14 20:37] VITALS: BP 152/64
== END 2017-09-14 23:00 | disposition short-term general hospital (02) ==
LOC: EDUNIT# → ED 17:34
DX: J40 Bronchitis, not specified as acute or chronic (principal); R06.00 Dyspnea, unspecified; R07.9 Chest pain, unspecified; E11.22 Type 2 diabetes mellitus with diabetic chronic kidney disease; N18.6 End stage renal disease; Z99.2 Dependence on renal dialysis; E78.00 Pure hypercholesterolemia, unspecified; F17.200 Nicotine dependence, unspecified, uncomplicated; Z86.73 Personal history of transient ischemic attack (TIA), and cerebral infarction without residual deficits
CPT/HCPCS: 36415; 71046; 80053; 82550; 82553; 83605; 83690; 84484; 85025; 85610; 87040; 87275; 87276; 93005; 96374; 96376; 99284; A9270; J1170

== ENCOUNTER 2017-10-09 09:49 | Outpatient (CLI) | payer MEDICAID | END 2017-10-09 09:50 | disposition short-term general hospital (02) | LOC: EMS 09:49 | PROVIDERS: ATTEND Surgery | DX: R06.00 Dyspnea, unspecified (principal) | CPT/HCPCS: A0170; A0425; A0427 ==

== ENCOUNTER 2017-10-14 03:36 | Outpatient (CLI) | payer MEDICAID | END 2017-10-14 03:37 | disposition critical access hospital (66) | LOC: EMS 03:36 | PROVIDERS: ATTEND Surgery | DX: R45.1 Restlessness and agitation (principal) | CPT/HCPCS: A0425; A0429 ==

== ENCOUNTER 2017-10-14 03:59 | Emergency (ER) | payer MEDICAID ==
--- NOTE | 2017-10-14 04:05 | ED Physician Documentation ---
History of Present Illness <Tejas Jaramillo - Last Filed: 10/14/17 09:47> - History obtained from History obtained from: Patient, EMS - History of Present Illness Timing: Unknown Pain level now: 0 Improved by: no ameliorating factors <Michael Tse - Last Filed: 10/15/17 09:23> - Stated complaint Stated Complaint: ETOH - Chief complaint Chief Complaint: General - Additonal information Additional information: 47-year-old female on dialysis with a history of diabetes has developed acute mental status change this morning. When she called the ambulance she called ambulance for shortness of breath and not feeling well. On arrival to the emergency department she had altered mental status. She was active aesthetic and unable to provide adequate history. She did allude to the use of alcohol at some point in her history. (Tejas Jaramillo) BIBA after she (patient) called 911. Patient tells me "the restless legs is so bad it makes me want to hurt myself". She is hyperkinetic, restless, repeatedly getting off of stretcher. She makes no eye contact, follows few commands ( although this appears to be due to her restlessness). Most answers are mumbled, brief, and often difficult to understand; few answers are intelligible and appropriate. (Michael Tse) Review of Systems Unable to obtain: Confused <Tejas Jaramillo - Last Filed: 10/14/17 09:47> Unable to obtain: Other (answers almost no questions with intelligible, appropriate answers) <Michael Tse - Last Filed: 10/15/17 09:23> PD PAST MEDICAL HISTORY <Tejas Jaramillo - Last Filed: 10/14/17 09:47> - Past Medical History Cardiovascular: Hypertension, High cholesterol Respiratory: Asthma, Pneumonia, Other Neuro: CVA Endocrine/Autoimmune: Type 2 diabetes GI: GERD : Dialysis, Renal insuffiency, Other HEENT: Other Psych: Depression, Anxiety Musculoskeletal: Osteoarthritis, Chronic back pain Derm: None - Past Surgical History Past Surgical History: Yes General: Cholecystectomy, Appendectomy, Bowel surgery Ortho: Carpal Tunnel surgery, 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, 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 HEENT: Cataracts, Other - Social History Does the pt smoke?: Yes Smoking Status: Current every day smoker Does the pt drink ETOH?: No Does the pt have substance abuse?: No - Immunizations Immunizations are current?: Yes - POLST Patient has POLST: No <Michael Tse - Last Filed: 10/15/17 09:23> - Present Medications Home Medications: Ambulatory Orders Medication Instructions Recorded Confirmed Labetalol HCl [Trandate] 100 mg PO BID 11/20/12 04/11/17 Montelukast Sodium [Singulair] 10 mg PO DAILY 11/25/12 04/11/17 raNITIdine [Zantac] 1 tab PO BID 08/22/14 04/11/17 Albuterol Sulfate [Proair 90 mcg IH Q6HR PRN 06/02/15 04/11/17 Respiclick] Loratadine 10 mg PO DAILY 06/02/15 04/11/17 Bisacodyl [Dulcolax] 10 mg PO DAILY PRN #10 tablet 09/27/16 04/11/17 Calcium Acetate 1,334 mg PO TIDWM 09/27/16 04/11/17 Furosemide [Lasix] 160 mg PO BID 09/27/16 04/11/17 Gabapentin 900 mg PO DAILY PM 09/27/16 04/11/17 Hydrocodone/Acetaminophen [Vicodin 0 mg PO .FREQ 09/27/16 04/11/17 Hp 10-300 mg Tablet] Lisinopril 2.5 mg PO DAILY 09/27/16 04/11/17 Omeprazole 40 mg PO BID 09/27/16 04/11/17 Sertraline [Zoloft] 25 mg PO DAILY 09/27/16 04/11/17 hydrALAZINE [Apresoline] 25 mg PO BID 09/27/16 04/11/17 hydrOXYzine HCl [Hydroxyzine HCl] 25 mg PO .FREQ 09/27/16 04/11/17 metOLazone [Metolazone] 5 mg PO DAILY 09/27/16 04/11/17 Albuterol Sulfate [Proair Hfa 8.5 gm IH QID #1 hfa.aer.ad 10/11/16 04/11/17 Inhaler] Baclofen 5 - 10 mg PO PRN PRN 10/11/16 04/11/17 Hydrocodone Bit/Homatrop Me-Br 1 each PO TID PRN #14 tablet 02/23/17 04/11/17 [Hydrocod-Homatrop 5-1.5 mg Tab] Levofloxacin [Levaquin] 500 mg PO DAILY #7 tablet 04/11/17 - Allergies Allergies/Adverse Reactions: Allergies Allergy/AdvReac Type Severity Reaction Status Date / Time No Known Drug Allergies Allergy Verified 02/23/17 10:14 PD ED PE NORMAL - Vitals Vital signs reviewed: Yes (tachy and hypertensive) - General General: Other (The patient is akesthetic with eyes closed thrashing on the bed. She will answer one word and not always appropriate. ) - HEENT HEENT: Atraumatic, PERRL, Ears normal, Other (dry mucous membranes ) - Neck Neck: Supple, no meningeal sign - Cardiac Cardiac: Other (tachy to 120 with 2/6 holosystolic murmer at LSB) - Respiratory Respiratory: No respiratory distress, Clear bilaterally - Abdomen Abdomen: Soft, Non tender - Back Back: No CVA TTP, No spinal TTP - Derm Derm: Normal color, Warm and dry - Extremities Extremities: Other (There is a shunt site on the left arm without signs of inflamation. ) - Neuro Neuro: No motor deficit, No sensory deficit Eye Opening: To Pain Motor: Localizes to Pain Verbal: Confused GCS Score: 11 <Tejas Jaramillo - Last Filed: 10/14/17 09:47> Results - Rads (name of study) CT head without Radiology: Prelim report reviewed (Impression: No acute intracranial abnormality.), EMP read indepedently, See rad report 1 view chest Radiology: Prelim report reviewed (Impression: 1. Nonspecific patchy airspace opacities and bronchial wall thickening which could represent infectious/ inflammatory etiology or be due to CHF/volume overload. Cardiac silhouette appears enlarged compared to prior exam with suggestion of pulmonary hypertension given pulmonary artery prominence.), EMP read indepedently, See rad report <Tejas Jaramillo - Last Filed: 10/14/17 09:47> <Michael Tse - Last Filed: 10/15/17 09:23> - Vitals Vitals: Oxygen O2 Source Room air - Labs Labs: Laboratory Tests 03/31/18 03/31/18 03/31/18 06:10 06:10 06:10 WBC 7.5 RBC 2.94 L Hgb 9.2 L Hct 29.1 L MCV 98.9 MCH 31.2 H MCHC 31.5 L RDW 18.4 H Plt Count 218 MPV 8.7 Neut # 5.9 Lymph # 0.6 L Gilmer # 0.7 Eos # 0.2 Baso # 0.1 Absolute Nucleated RBC 0.01 Nucleated RBC % 0.1 PT INR APTT Sodium 133 L Potassium 4.1 Chloride 88 L Carbon Dioxide 28 Anion Gap 17.0 H BUN 34 H Creatinine 3.7 H Estimated GFR (MDRD) 13 L Glucose 220 H Calcium 9.2 Ammonia 42.8 H Urine Color Urine Clarity Urine pH Ur Specific Boyd Urine Protein Urine Glucose (UA) Urine Ketones Urine Occult Blood Urine Nitrite Urine Bilirubin Urine Urobilinogen Ur Leukocyte Esterase Urine RBC Urine WBC Ur Epithelial Cells Ur Squamous Epith Cells Urine Bacteria Urine Casts Ur Microscopic Review Urine Culture Comments Salicylates < 6.0 Urine Opiates Screen Ur Oxycodone Screen Urine Methadone Screen Ur Propoxyphene Screen Acetaminophen 15 Ur Barbiturates Screen Ur Tricyclics Screen Ur Phencyclidine Scrn Ur Amphetamine Screen U Methamphetamines Scrn U Benzodiazepines Scrn Urine Cocaine Screen U Cannabinoids Screen Ethyl Alcohol < 5.0 10/14/1718 10/14/17 06:10 06:20 06:20 WBC RBC Hgb Hct MCV MCH MCHC RDW Plt Count MPV Neut # Lymph # Gilmer # Eos # Baso # Absolute Nucleated RBC Nucleated RBC % PT 25.3 H INR 2.3 H APTT 33.7 H Sodium Potassium Chloride Carbon Dioxide Anion Gap BUN Creatinine Estimated GFR (MDRD) Glucose Calcium Ammonia Urine Color YELLOW Urine Clarity CLEAR Urine pH 7.5 Ur Specific Boyd 1.020 Urine Protein >=300 H Urine Glucose (UA) >=1000 H Urine Ketones NEGATIVE Urine Occult Blood MODERATE H Urine Nitrite NEGATIVE Urine Bilirubin NEGATIVE Urine Urobilinogen 0.2 (NORMAL) Ur Leukocyte Esterase NEGATIVE Urine RBC 6-10 H Urine WBC 0-3 Ur Epithelial Cells RARE Renal Tubular Ur Squamous Epith Cells RARE Squamous Urine Bacteria Few Urine Casts 0-2 Hyaline Casts Ur Microscopic Review INDICATED Urine Culture Comments NOT INDICATED Salicylates Urine Opiates Screen POSITIVE H Ur Oxycodone Screen NEGATIVE Urine Methadone Screen NEGATIVE Ur Propoxyphene Screen NEGATIVE Acetaminophen Ur Barbiturates Screen NEGATIVE Ur Tricyclics Screen NEGATIVE Ur Phencyclidine Scrn NEGATIVE Ur Amphetamine Screen NEGATIVE U Methamphetamines Scrn NEGATIVE U Benzodiazepines Scrn NEGATIVE Urine Cocaine Screen NEGATIVE U Cannabinoids Screen POSITIVE H Ethyl Alcohol Procedures - IVC sono (time) 0740 Bedside IVC sono: IVC measures (cm) (0.88), IVC collapsed c insp (cm) (complete) , Dehydration (est 2 liter deficit) <Tejas Jaramillo - Last Filed: 10/14/17 09:47> PD MEDICAL DECISION MAKING - ED course Complexity details: reviewed old records, reviewed results, re-evaluated patient , considered differential, d/w patient <Tejas Jaramillo - Last Filed: 10/14/17 09:47> <Michael Tse - Last Filed: 10/15/17 09:23> - ED course ED course: 47-year-old diabetic female with end-stage renal disease on dialysis (and Coumadin for DVT) has developed acute mental status changes and here in the emergency department she is found to be dehydrated and intoxicants are not discovered. She does not have improvement with time. Chest x-ray demonstrates a right-sided infiltrate. She has been treated recently for endocarditis. She has had prior altered mental status related to infection. Arrangements are made for transfer to [facility] with Dr. Ramirez accepting. The chest x-ray reads possible failure. I interrogated the IVC and ordered fluid with a collapsing IVC. I doubt failure. Fluid bolus is abandoned in favor of maintenance while in route at 150ml/hr. (Tejas Jaramillo) Given 2mg IM ativan without improvement in her restlessness and anxiety, thus given 10mg IM Zyprexa. There was modest improvement after this intervention. Blood tests drawn and sent once she was less hyperkinetic, as well as CTH (on coumadin, unknown if she fell). Case turned over to Dr. Jaramillo at change of shift 7 AM. (Michael Tse) Departure <Tejas Jaramillo - Last Filed: 10/14/17 09:47> <Michael Tse - Last Filed: 10/15/17 09:23> - Departure Disposition: 02 Transfer Acute Care Hosp Clinical Impression: Dehydration Pneumonia Qualifiers: Pneumonia type: due to unspecified organism Laterality: right Lung location: middle lobe of lung Qualified Code(s): J18.1 - Lobar pneumonia, unspecified organism Mental status change Qualifiers: Altered mental status type: delirium Qualified Code(s): R41.0 - Disorientation , unspecified Condition: Serious Discharge Date/Time: 10/14/17 09:58
[2017-10-14] MEDS ORDERED: LORazepam 2 MG/ML VIAL IM STA (04:10)
[2017-10-14] MEDS ORDERED: OLANZapine 10 MG VIAL IM STA ×2 (04:30→04:36)
[2017-10-14 06:14] VITALS: BP 169/100
[2017-10-14 06:18] LABS: BASOPHILS # (AUTO) 0.1 10^3/uL (0.0-0.1); BASOPHILS % (AUTO) 1.1 %; EOSINOPHILS # (AUTO) 0.2 10^3/uL (0.0-0.7); EOSINOPHILS % (AUTO) 2.4 %; HGB - HEMOGLOBIN 9.2 g/dL (12.0-16.0); LYMPHOCYTES # (AUTO) 0.6 10^3/uL (1.5-3.5); LYMPHOCYTES % (AUTO) 7.8 %; MEAN CORPUSCULAR HEMOGLOBIN 31.2 pg (27.0-31.0); MEAN CORPUSCULAR HGB CONC 31.5 g/dL (32.0-36.0); MEAN CORPUSCULAR VOLUME 98.9 fL (81.0-99.0); MEAN PLATELET VOLUME 8.7 fL (7.9-10.8); MONOCYTES # (AUTO) 0.7 10^3/uL (0.0-1.0); MONOCYTES % (AUTO) 9.6 %; NEUTROPHILS # (AUTO) 5.9 10^3/uL (1.5-6.6); NEUTROPHILS % (AUTO) 79.1 %; PLT - PLATELET COUNT 218 10^3/uL (130-450); RED BLOOD COUNT 2.94 10^6/uL (4.20-5.40); RED CELL DISTRIBUTION WIDTH 18.4 % (12.0-15.0); WHITE BLOOD COUNT 7.5 x10^3/uL (4.8-10.8)
[2017-10-14 06:28] LABS: INR 2.3 (0.8-1.2); PT - PROTHROMBIN TIME 25.3 secs (9.9-12.6)
[2017-10-14 06:30] LABS: MUDS CUTOFF CONCENTRATIONS CUTOFF CONC BELOW:
[2017-10-14 06:31] LABS: ACETAMINOPHEN 15 ug/mL (10-30); BUN - BLOOD UREA NITROGEN 34 mg/dL (6-20); CALCIUM 9.2 mg/dL (8.5-10.3); CARBON DIOXIDE - CO2 28 mmol/L (21-32); CHLORIDE 88 mmol/L (101-111); CREATININE 3.7 mg/dL (0.4-1.0); GFR - MDRD 13 (>89); GLUCOSE 220 mg/dL (70-100); SALICYLATE < 6.0 mg/dL; SODIUM 133 mmol/L (135-145)
[2017-10-14 06:46] LABS: AMPHETAMINE SCREEN,URINE NEGATIVE (NEGATIVE); BENZODIAZEPINES SCREEN, URINE NEGATIVE (NEGATIVE); COCAINE SCREEN URINE NEGATIVE (NEGATIVE); METHADONE SCREEN, URINE NEGATIVE (NEGATIVE); METHAMPHETAMINES SCREEN, URINE NEGATIVE (NEGATIVE); OPIATE SCREEN, URINE POSITIVE (NEGATIVE); OXYCODONE SCREEN, URINE NEGATIVE (NEGATIVE); PROPOXYPHENE SCREEN, URINE NEGATIVE (NEGATIVE); TRICYCLIC ANTIDEPRESSANT,URINE NEGATIVE (NEGATIVE)
--- NOTE | 2017-10-14 08:00 | CT Report ---
EXAM: CT HEAD EXAM DATE: 10/14/2017 07:36 AM. CLINICAL HISTORY: AMS. COMPARISON: None. TECHNIQUE: Multiaxial CT images were obtained from the foramen magnum to the vertex. Reformats: Coron al. IV contrast: None. In accordance with CT protocol optimization, one or more of the following dose reduction techniques w ere utilized for this exam: automated exposure control, adjustment of mA and/or KV based on patient s ize, or use of iterative reconstructive technique. FINDINGS: Parenchyma: No intraparenchymal hemorrhage. No evidence of mass, midline shift, or CT findings of inf arction. Lopez-white differentiation is distinct. Extraaxial Spaces: Normal for age. No subdural or epidural collections identified. Ventricles: Normal in size and position. Sinuses and Orbits: Imaged paranasal sinuses, orbits, and mastoids show no significant abnormality. Bones: No evidence of fracture or calvarial defect. Other: Prior right orbital surgery IMPRESSION: No acute intracranial abnormality. [facility] Referring Provider Line: [phone] SITE ID: [id number]
--- NOTE | 2017-10-14 08:00 | CT Preliminary Report ---
Exam: CT HEAD W/O IMPRESSION: No acute intracranial abnormality. [facility] SITE ID: [id number]
[2017-10-14] MEDS ORDERED: SODIUM CHLORIDE 0.9% 1,000 ML IV ONE (08:07)
[2017-10-14 09:07] LABS: GLUCOSE, URINE (UA) >=1000 mg/dL (NEGATIVE); KETONES,URINE (UA) NEGATIVE (NEGATIVE); LEUKOCYTE ESTERASE, URINE NEGATIVE (NEGATIVE); NITRITE,URINE NEGATIVE (NEGATIVE); OCCULT BLOOD,URINE MODERATE (NEGATIVE); PH,URINE 7.5 PH (5.0-7.5); PROTEIN,URINE >=300 mg/dL (NEGATIVE); UROBILINOGEN,URINE 0.2 (NORMAL) E.U./dL (NORMAL)
[2017-10-14 09:16] LABS: BACTERIA,URINE Few /HPF (None Seen); BILIRUBIN,URINE NEGATIVE (NEGATIVE); CLARITY,URINE CLEAR (CLEAR); EPITHELIAL CELLS,UR RARE Renal Tubular /HPF (<= Few); ICTOTEST,URINE NEGATIVE; SQUAMOUS EPITHELIAL CELL,UR RARE Squamous (<= Few)
[2017-10-14 09:17] LABS: CASTS, URINE 0-2 Hyaline Casts /LPF
--- NOTE | 2017-10-14 09:24 | XRAY Preliminary Report ---
Exam: XR CHEST 1 VIEW X-RAY IMPRESSION: 1. Nonspecific patchy airspace opacities and bronchial wall thickening which could represent an infec tious/inflammatory etiology or be due to CHF/volume overload. 2. Cardiac silhouette appears enlarged compared to prior exam with suggestion of pulmonary hypertensi on given the pulmonary arterial prominence. [facility] SITE ID: [id number]
--- NOTE | 2017-10-14 09:36 | XRAY Report ---
EXAM: CHEST RADIOGRAPHY EXAM DATE: 10/14/2017 08:58 AM. CLINICAL HISTORY: Shortness of air. COMPARISON: Chest radiograph 09/14/2017 and 01/19/2017. TECHNIQUE: 1 view. FINDINGS: Lungs/Pleura: There are patchy bilateral airspace opacities, greater on the right than the left, pred ominating in the perihilar regions. There is bronchial wall thickening. Pulmonary vasculature is engo rged and indistinct. No significant pleural effusion. No pneumothorax. Mediastinum: There is mild cardiomegaly, which appears increased compared to prior exam, at least in part due to technique. There is prominence of the main pulmonary artery suggesting pulmonary hyperten [place]. The jazzy also appear prominent, possibly due to vascular congestion. There is minimal calcific atherosclerosis at the aortic arch. Other: Old bilateral rib fractures again noted. IMPRESSION: 1. Nonspecific patchy airspace opacities and bronchial wall thickening which could represent an infec tious/inflammatory etiology or be due to CHF/volume overload. 2. Cardiac silhouette appears enlarged compared to prior exam with suggestion of pulmonary hypertensi on given the pulmonary arterial prominence. [facility] Referring Provider Line: [phone] SITE ID: [id number]
== END 2017-10-14 09:58 | disposition short-term general hospital (02) ==
LOC: EDUNIT# → ED 03:59 → SUPCPDRO 03:59 → ED 09:58
DX: E86.0 Dehydration (principal); J18.9 Pneumonia, unspecified organism; R41.0 Disorientation, unspecified; I12.0 Hypertensive chronic kidney disease with stage 5 chronic kidney disease or end stage renal disease; E11.22 Type 2 diabetes mellitus with diabetic chronic kidney disease; N18.6 End stage renal disease; Z99.2 Dependence on renal dialysis; E78.00 Pure hypercholesterolemia, unspecified; K21.9 Gastro-esophageal reflux disease without esophagitis; Z86.73 Personal history of transient ischemic attack (TIA), and cerebral infarction without residual deficits; F17.200 Nicotine dependence, unspecified, uncomplicated; Z86.718 Personal history of other venous thrombosis and embolism; Z79.01 Long term (current) use of anticoagulants
CPT/HCPCS: 36415; 51701; 70450; 71045; 80048; 80306; 80307; 80320; 80329; 81001; 82140; 85025; 85610; 85730; 87040; 96360; 96372; 99284; 99285; J2060; 81003; 87086

== ENCOUNTER 2017-10-14 10:02 | Outpatient (CLI) | payer MEDICAID | END 2017-10-14 10:03 | disposition short-term general hospital (02) | LOC: EMS 10:02 | PROVIDERS: ATTEND Surgery | DX: R41.82 Altered mental status, unspecified (principal); E86.0 Dehydration | CPT/HCPCS: A0170; A0425; A0426 ==

== ENCOUNTER 2017-10-19 13:52 | Outpatient (CLI) | payer MEDICAID | END 2017-10-19 13:53 | disposition critical access hospital (66) | LOC: EMS 13:52 | PROVIDERS: ATTEND Surgery | DX: R45.851 Suicidal ideations (principal) | CPT/HCPCS: A0425; A0429 ==

== ENCOUNTER 2017-10-19 14:43 | Emergency (ER) | payer MEDICAID ==
[2017-10-19 14:50] VITALS: BP 161/117
--- NOTE | 2017-10-19 15:09 | ED Physician Documentation ---
PD HPI MHE - Stated complaint Stated Complaint: SI - Chief complaint Chief Complaint: MHE - History obtained from History obtained from: Patient, EMS, Police - History of Present Illness Primary symptom: Other (47-year-old woman brought in by ambulance, detained by the police on a psychiatric hold for depression. She says that a friend called the ambulance because she has been so depressed and tearful lately although she denies to me that she is suicidal nor does she have a plan. She has been undergoing psychiatric care in the past. She also has dialysis dependence, Monday, , Monday. She is mostly upset because of chronic illness, nothing specifically acute.) Review of Systems Ten Systems: 10 systems reviewed and negative Constitutional: denies: Fever, Chills Cardiac: reports: Pedal edema. denies: Chest pain / pressure, Palpitations Respiratory: denies: Dyspnea, Cough GI: denies: Abdominal Pain, Vomiting, Hematemesis PD PAST MEDICAL HISTORY - Past Medical History Past Medical History: Yes Cardiovascular: Hypertension, High cholesterol Respiratory: Asthma, Pneumonia, Other Neuro: CVA Endocrine/Autoimmune: Type 2 diabetes GI: GERD : Dialysis, Renal insuffiency, Other HEENT: Other Psych: Depression, Anxiety Musculoskeletal: Osteoarthritis, Chronic back pain Derm: None - Past Surgical History Past Surgical History: Yes General: Cholecystectomy, Appendectomy, Bowel surgery Ortho: Carpal Tunnel surgery, 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, 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 HEENT: Cataracts, Other - Present Medications Home Medications: Ambulatory Orders Medication Instructions Recorded Confirmed Labetalol HCl [Trandate] 100 mg PO BID 11/20/12 04/11/17 Montelukast Sodium [Singulair] 10 mg PO DAILY 11/25/12 04/11/17 raNITIdine [Zantac] 1 tab PO BID 08/22/14 04/11/17 Albuterol Sulfate [Proair 90 mcg IH Q6HR PRN 06/02/15 04/11/17 Respiclick] Loratadine 10 mg PO DAILY 06/02/15 04/11/17 Bisacodyl [Dulcolax] 10 mg PO DAILY PRN #10 tablet 09/27/16 04/11/17 Calcium Acetate 1,334 mg PO TIDWM 09/27/16 04/11/17 Furosemide [Lasix] 160 mg PO BID 09/27/16 04/11/17 Gabapentin 900 mg PO DAILY PM 09/27/16 04/11/17 Hydrocodone/Acetaminophen [Vicodin 0 mg PO .FREQ 09/27/16 04/11/17 Hp 10-300 mg Tablet] Lisinopril 2.5 mg PO DAILY 09/27/16 04/11/17 Omeprazole 40 mg PO BID 09/27/16 04/11/17 Sertraline [Zoloft] 25 mg PO DAILY 09/27/16 04/11/17 hydrALAZINE [Apresoline] 25 mg PO BID 09/27/16 04/11/17 hydrOXYzine HCl [Hydroxyzine HCl] 25 mg PO .FREQ 09/27/16 04/11/17 metOLazone [Metolazone] 5 mg PO DAILY 09/27/16 04/11/17 Albuterol Sulfate [Proair Hfa 8.5 gm IH QID #1 hfa.aer.ad 10/11/16 04/11/17 Inhaler] Baclofen 5 - 10 mg PO PRN PRN 10/11/16 04/11/17 Hydrocodone Bit/Homatrop Me-Br 1 each PO TID PRN #14 tablet 02/23/17 04/11/17 [Hydrocod-Homatrop 5-1.5 mg Tab] Levofloxacin [Levaquin] 500 mg PO DAILY #7 tablet 04/11/17 - Allergies Allergies/Adverse Reactions: Allergies Allergy/AdvReac Type Severity Reaction Status Date / Time No Known Drug Allergies Allergy Verified 02/23/17 10:14 - Social History Does the pt smoke?: Yes Smoking Status: Current every day smoker Does the pt drink ETOH?: Yes Does the pt have substance abuse?: No - Family History Family history: reports: Non contributory - Immunizations Immunizations are current?: Yes - POLST Patient has POLST: No PD ED PE NORMAL - Vitals Vital signs reviewed: Yes - General General: Alert and oriented X 3, Other (She is tearful) - HEENT HEENT: PERRL, EOMI, Other (She has the appearance of someone with chronic disease with steroid facies) - Neck Neck: Supple, no meningeal sign, No bony TTP - Cardiac Cardiac: RRR, No murmur, No rub - Respiratory Respiratory: No respiratory distress, Clear bilaterally - Abdomen Abdomen: Soft, Non tender - Back Back: No CVA TTP, No spinal TTP - Derm Derm: Normal color, Warm and dry, No rash - Extremities Extremities: Other (Moderate bilateral pitting pedal edema without calf tenderness. It is symmetric.) - Neuro Neuro: Alert and oriented X 3, Normal speech - Psych Psych: Normal affect Results - Vitals Vitals: Vital Signs - 24 hr 10/19/17 14:48 Temperature 36.5 C Heart Rate 78 Respiratory 20 Rate Blood Pressure 161/117 H O2 Saturation 100 Oxygen O2 Source Room air - Labs Labs: Laboratory Tests 10/19/17 10/19/17 15:16 15:16 WBC 6.8 RBC 2.82 L Hgb 9.3 L Hct 27.8 L MCV 98.7 MCH 33.1 H MCHC 33.5 RDW 18.9 H Plt Count 192 MPV 8.7 Neut # Not Reportable Lymph # Not Reportable [place] # Not Reportable Eos # Not Reportable Baso # Not Reportable Absolute Nucleated RBC Not Reportable Total Counted 100 Band Neuts % (Manual) 2 Abnorm Lymph % (Manual) 0 Nucleated RBC % Not Reportable Neutrophils # (Manual) 5.0 Lymphocytes # (Manual) 0.5 L Monocytes # (Manual) 0.8 Eosinophils # (Manual) 0.4 Basophils # (Manual) 0.0 Differential Comment MANUAL DIFFERENTIAL Manual Slide Review Indicated WBC Morphology NORMAL APPEARANCE Platelet Estimate NORMAL (130-450,000) Platelet Morphology NORMAL APPEARANCE RBC Morph Micro Appear 1+ TEARDROP CELLS Sodium 135 Potassium 3.9 Chloride 91 L Carbon Dioxide 28 Anion Gap 16.0 H BUN 53 H Creatinine 3.4 H Estimated GFR (MDRD) 14 L Glucose 311 H Calcium 8.9 Total Bilirubin 0.8 AST 26 ALT 16 Alkaline Phosphatase 249 H Total Protein 7.5 Albumin 2.9 L Globulin 4.6 H Albumin/Globulin Ratio 0.6 L Lipase 59 H Salicylates < 6.0 Acetaminophen < 10 L Ethyl Alcohol < 5.0 PD MEDICAL DECISION MAKING - ED course ED course: 47-year-old woman with dialysis dependence presents with depression. She was brought in accompanied by [place] [employer]. She was evaluated by myself and the vp digital marketing social media and crm and she is not suicidal and there is no indication for involuntary treatment and she declines voluntary treatment. Departure - Departure Disposition: 01 Home, Self Care Clinical Impression: Depression Qualifiers: Depression Type: major depressive disorder Major depression recurrence: recurrent Active/Remission status: currently active Major depression episode severity: moderate Qualified Code(s): F33.1 - Major depressive disorder, recurrent, moderate Renal failure Qualifiers: Renal failure chronicity: chronic Condition: Good Record reviewed to determine appropriate education?: Yes Instructions: ED Depression Comments: Follow-up with [facility] at [phone] to schedule psychiatric care and counseling.
[2017-10-19 15:28] LABS: BASOPHILS % (AUTO) 0.1 %; EOSINOPHILS % (AUTO) 2.3 %; HGB - HEMOGLOBIN 9.3 g/dL (12.0-16.0); LYMPHOCYTES % (AUTO) 9.4 %; MEAN CORPUSCULAR HEMOGLOBIN 33.1 pg (27.0-31.0); MEAN CORPUSCULAR HGB CONC 33.5 g/dL (32.0-36.0); MEAN CORPUSCULAR VOLUME 98.7 fL (81.0-99.0); MEAN PLATELET VOLUME 8.7 fL (7.9-10.8); MONOCYTES % (AUTO) 7.5 %; NEUTROPHILS % (AUTO) 80.7 %; PLT - PLATELET COUNT 192 10^3/uL (130-450); RED BLOOD COUNT 2.82 10^6/uL (4.20-5.40); RED CELL DISTRIBUTION WIDTH 18.9 % (12.0-15.0); WHITE BLOOD COUNT 6.8 x10^3/uL (4.8-10.8)
[2017-10-19 15:30] LABS: ABNORMAL LYMPHS % (MANUAL) 0 %
[2017-10-19 15:39] LABS: ALBUMIN 2.9 g/dL (3.2-5.5); ALBUMIN/GLOBULIN RATIO 0.6 (1.0-2.2); ALKALINE PHOSPHATASE 249 IU/L (42-121); ALT ALANINE AMINOTRANSFERASE 16 IU/L (10-60); AST ASPARTATE AMINOTRANSFERASE 26 IU/L (10-42); BILIRUBIN,TOTAL 0.8 mg/dL (0.2-1.0); BUN - BLOOD UREA NITROGEN 53 mg/dL (6-20); CALCIUM 8.9 mg/dL (8.5-10.3); CARBON DIOXIDE - CO2 28 mmol/L (21-32); CHLORIDE 91 mmol/L (101-111); CREATININE 3.4 mg/dL (0.4-1.0); GFR - MDRD 14 (>89); GLUCOSE 311 mg/dL (70-100); LIPASE 59 U/L (22-51); SALICYLATE < 6.0 mg/dL; SODIUM 135 mmol/L (135-145); TOTAL PROTEIN 7.5 g/dL (6.7-8.2)
[2017-10-19 15:44] LABS: BAND NEUTROPHILS % (MANUAL) 2 %; DIFFERENTIAL COMMENT MANUAL DIFFERENTIAL; EOSINOPHILS # (MANUAL) 0.4 10^3/uL (0-0.7); LYMPHOCYTES # (MANUAL) 0.5 10^3/uL (1.5-3.5); LYMPHOCYTES % (MANUAL) 8 %; MONOCYTES # (MANUAL) 0.8 10^3/uL (0.0-1.0); NEUTROPHILS % (MANUAL) 72 %; PLATELET ESTIMATE, MANUAL NORMAL (130-450,000) (NORMAL); PLATELET MORPHOLOGY NORMAL APPEARANCE (NORMAL)
[2017-10-19 15:47] LABS: ACETAMINOPHEN < 10 ug/mL (10-30)
[2017-10-19] MEDS ORDERED: INSULIN REGULAR HUMAN 100 UNIT/1 ML 10 ML MDV SUBQ STA (15:49)
[2017-10-19] MEDS ORDERED: oxyCOD/ACETAMIN 5 MG/325 MG TABLET PO STA (16:15)
== END 2017-10-19 17:00 | disposition home or self-care (01) ==
LOC: EDUNIT# → ED 14:43
DX: F33.1 Major depressive disorder, recurrent, moderate (principal); I10 Essential (primary) hypertension; E78.00 Pure hypercholesterolemia, unspecified; E11.9 Type 2 diabetes mellitus without complications; F17.200 Nicotine dependence, unspecified, uncomplicated; Z99.2 Dependence on renal dialysis; Z86.73 Personal history of transient ischemic attack (TIA), and cerebral infarction without residual deficits
CPT/HCPCS: 36415; 80053; 80307; 80320; 80329; 83690; 85025; 99283; A9270; J1815

== ENCOUNTER 2017-10-24 19:40 | Outpatient (CLI) | payer MEDICAID | END 2017-10-24 19:41 | disposition short-term general hospital (02) | LOC: EMS 19:40 | PROVIDERS: ATTEND Surgery | DX: R11.2 Nausea with vomiting, unspecified (principal); R51 Headache; R42 Dizziness and giddiness | CPT/HCPCS: A0425; A0427 ==

== ENCOUNTER 2017-11-13 08:00 | Outpatient (CLI) | payer MEDICAID | END 2017-11-13 08:01 | disposition home or self-care (01) | LOC: LAB.F 08:00 | PROVIDERS: ATTEND Nurse Practitioner Family | DX: I48.91 Unspecified atrial fibrillation (principal) | CPT/HCPCS: 85610 ==

== ENCOUNTER 2017-11-22 14:37 | Outpatient (CLI) | payer MEDICAID ==
--- NOTE | 2017-11-22 16:27 | Ultrasound Report ---
ULTRASOUND RIGHT SUPRACLAVICULAR REGION: 11/22/2017 CLINICAL INDICATION: Palpable abnormality. TECHNIQUE: Real-time scanning was performed with contact center representative static images obtained. FINDINGS: Ultrasound of the palpable abnormality identified by the patient was performed. There is a heterogeneous 4.7 x 3.3 x 3.2 cm nodule at the site of the palpable abnormality. This may represent adenopathy. CT of the neck with contrast is recommended for further evaluation. IMPRESSION: HETEROGENEOUS 4.7 CM MASS CORRELATING WITH THE PALPABLE ABNORMALITY. CONSIDER CT OF THE NECK WITH CONTRAST FOR FURTHER CHARACTERIZATION. TD: 11/22/2017 16:26
== END 2017-11-22 14:38 | disposition home or self-care (01) ==
LOC: DI 14:37
PROVIDERS: ATTEND Nurse Practitioner Family
DX: R22.1 Localized swelling, mass and lump, neck (principal)
CPT/HCPCS: 76536

== ENCOUNTER 2017-12-01 11:38 | Outpatient (CLI) | payer MEDICAID | END 2017-12-01 11:39 | disposition home or self-care (01) | LOC: LAB.F 11:38 | PROVIDERS: ATTEND Nurse Practitioner Family | DX: I48.91 Unspecified atrial fibrillation (principal) | CPT/HCPCS: 85610 ==

== ENCOUNTER 2017-12-10 18:27 | Outpatient (CLI) | payer MEDICAID | END 2017-12-10 18:28 | disposition short-term general hospital (02) | LOC: EMS 18:27 | PROVIDERS: ATTEND Surgery | DX: R52 Pain, unspecified (principal); R73.09 Other abnormal glucose; R53.1 Weakness; Z99.2 Dependence on renal dialysis | CPT/HCPCS: A0170; A0425; A0427 ==

== ENCOUNTER 2018-01-01 15:41 | Outpatient (CLI) | payer MEDICAID | END 2018-01-01 15:42 | disposition home or self-care (01) | LOC: LAB.S 15:41 | PROVIDERS: ATTEND Nurse Practitioner Family | DX: I48.91 Unspecified atrial fibrillation (principal) | CPT/HCPCS: 85610 ==

== ENCOUNTER 2018-01-08 06:45 | Outpatient (CLI) | payer MEDICAID | END 2018-01-08 06:46 | disposition critical access hospital (66) | LOC: EMS 06:45 | PROVIDERS: ATTEND Surgery | DX: S09.90XA Unspecified injury of head, initial encounter (principal); M54.5 Low back pain; W18.30XA Fall on same level, unspecified, initial encounter; Y92.039 Unspecified place in apartment as the place of occurrence of the external cause; Z79.01 Long term (current) use of anticoagulants; Z99.2 Dependence on renal dialysis | CPT/HCPCS: A0425; A0429 ==

== ENCOUNTER 2018-01-08 07:14 | Emergency (ER) | payer MEDICAID ==
[2018-01-08] MEDS ORDERED: DEXAMETHASONE 10 MG/ML VIAL PO STA (07:23)
--- NOTE | 2018-01-08 07:26 | ED Physician Documentation ---
PD HPI HEAD INJURY - Stated complaint Stated Complaint: GLF/HIT HEAD - Chief complaint Chief Complaint: Resp - History obtained from History obtained from: Patient - History of Present Illness Mechanism of head injury: Fell Where head injury occurred: Home Timing - onset: Today Location of injury: Back Associated symptoms: Neck pain. No: LOC, AMS, Amnesia, Nausea / vomiting, Paresthesias, Seizures, Ear drainage, Nasal drainage Symptoms improve with: Rest Symptoms worsen with: Palpation, Movement Contributing factors: Anticoagulated Similar symptoms before: Diagnosis (head contusion) Recently seen: Other (gets dialysed Tues, Thurs SAT) - Additional information Additional information: 47-year-old female fell at home injuring the back of her head. She did not have loss of consciousness she is on Coumadin. She complains of some pain to the neck and she has had a cough for the past week. She also is feeling more anxious than usual and has recently started some medications for anxiety and she feels anger. She does not usually feel anger. Review of Systems Constitutional: denies: Fever Eyes: denies: Decreased vision Ears: denies: Ear pain Nose: reports: Rhinorrhea / runny nose, Congestion Throat: denies: Sore throat Cardiac: denies: Chest pain / pressure, Palpitations Respiratory: reports: Cough. denies: Dyspnea GI: denies: Abdominal Pain, Nausea, Vomiting : denies: Dysuria, Frequency Skin: denies: Rash Musculoskeletal: reports: Neck pain. denies: Back pain, Extremity pain Neurologic: reports: Headache, Head injury. 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 HEENT: Cataracts, Other - Present Medications Home Medications: Ambulatory Orders Medication Instructions Recorded Confirmed Labetalol HCl [Trandate] 100 mg PO BID 11/20/12 04/11/17 Montelukast Sodium [Singulair] 10 mg PO DAILY 11/25/12 04/11/17 raNITIdine [Zantac] 1 tab PO BID 08/22/14 04/11/17 Albuterol Sulfate [Proair 90 mcg IH Q6HR PRN 06/02/15 04/11/17 Respiclick] Loratadine 10 mg PO DAILY 06/02/15 04/11/17 Bisacodyl [Dulcolax] 10 mg PO DAILY PRN #10 tablet 09/27/16 04/11/17 Calcium Acetate 1,334 mg PO TIDWM 09/27/16 04/11/17 Furosemide [Lasix] 160 mg PO BID 09/27/16 04/11/17 Gabapentin 900 mg PO DAILY PM 09/27/16 04/11/17 Hydrocodone/Acetaminophen [Vicodin 0 mg PO .FREQ 09/27/16 04/11/17 Hp 10-300 mg Tablet] Lisinopril 2.5 mg PO DAILY 09/27/16 04/11/17 Omeprazole 40 mg PO BID 09/27/16 04/11/17 Sertraline [Zoloft] 25 mg PO DAILY 09/27/16 04/11/17 hydrALAZINE [Apresoline] 25 mg PO BID 09/27/16 04/11/17 hydrOXYzine HCl [Hydroxyzine HCl] 25 mg PO .FREQ 09/27/16 04/11/17 metOLazone [Metolazone] 5 mg PO DAILY 09/27/16 04/11/17 Albuterol Sulfate [Proair Hfa 8.5 gm IH QID #1 hfa.aer.ad 10/11/16 04/11/17 Inhaler] Baclofen 5 - 10 mg PO PRN PRN 10/11/16 04/11/17 Hydrocodone Bit/Homatrop Me-Br 1 each PO TID PRN #14 tablet 02/23/17 04/11/17 [Hydrocod-Homatrop 5-1.5 mg Tab] Levofloxacin [Levaquin] 500 mg PO DAILY #7 tablet 04/11/17 Azithromycin [Zithromax] 250 mg PO DAILY #6 tablet 01/08/18 - Allergies Allergies/Adverse Reactions: Allergies Allergy/AdvReac Type Severity Reaction Status Date / Time No Known Drug Allergies Allergy Verified 02/23/17 10:14 - Social History Does the pt smoke?: Yes Smoking Status: Current every day smoker Does the pt drink ETOH?: Yes Does the pt have substance abuse?: No - Immunizations Immunizations are current?: Yes - POLST Patient has POLST: No PD ED PE NORMAL - Vitals Vital signs reviewed: Yes - General General: Alert and oriented X 3, Well developed/nourished, Other (The patient is anxious and coughing) - HEENT HEENT: PERRL, EOMI, Other (There is a "goose egg" to the left occiput without crepitance or step off. The right TM is clear the left is erythematous with flattening of the landmarks. ) - Neck Neck: Supple, no meningeal sign, No bony TTP - Cardiac Cardiac: No murmur, Other (irregularly irregular ) - Respiratory Respiratory: No respiratory distress, Other (diminished breath sounds bilaterally) - Abdomen Abdomen: Soft, Non tender - Back Back: No CVA TTP, No spinal TTP - Derm Derm: Normal color, Warm and dry, No rash - Extremities Extremities: No deformity, No edema - Neuro Neuro: Alert and oriented X 3, core stacker 2-12 intact, No motor deficit, No sensory deficit, Normal speech Eye Opening: Spontaneous Motor: Obeys Commands Verbal: Oriented GCS Score: 15 - Psych Psych: Other (mood is anxious and the affect is flat. ) Results - Vitals Vitals: Vital Signs - 24 hr 01/08/18 07:25 Temperature 36.8 C Heart Rate 104 H Respiratory 16 Rate Blood Pressure 138/87 H O2 Saturation 96 Oxygen O2 Source Room air - Labs Labs: Laboratory Tests 01/08/18 07:23 Whole Blood INR 1.2 - Rads (name of study) CT head without Radiology: Prelim report reviewed (Impression: 1. No intracranial hemorrhage or other acute intracranial abnormality.2 Focal subcutaneous soft tissue swelling left parietal region.), EMP read indepedently, See rad report CT cervical spine without Radiology: Prelim report reviewed (Impression 1. No acute osseous abnormality of the cervical spine.2 Mild degenerative changes at the atlantaldental joint and C2-C3 facet joints bilaterally.), EMP read indepedently, See rad report PD MEDICAL DECISION MAKING - ED course Complexity details: reviewed results, re-evaluated patient, considered differential, d/w patient ED course: 47-year-old female on dialysis has fallen in her home she is on Coumadin and she struck the back of her head. She did not have loss of consciousness and she does complain of some pain in her neck as well. A CT scan of the head and neck were obtained without significant findings. She is complaining of a cough which she has had for the past week and some anger. On examination she has left otitis media and this is treated aggressively with 10 mg of dexamethasone and we will put her on some azithromycin. - Sepsis Event Vital Signs: Vital Signs - 24 hr 01/08/ 07:25 Temperature 36.8 C Heart Rate 104 H Respiratory 16 Rate Blood Pressure 138/87 H O2 Saturation 96 Oxygen O2 Source Room air Departure - Departure Disposition: Home, Self Care Clinical Impression: Otitis media Qualifiers: Otitis media type: suppurative Chronicity: acute Laterality: left Recurrence: not specified as recurrent Spontaneous tympanic membrane rupture: without spontaneous rupture Qualified Code(s): H66.002 - Acute suppurative otitis media without spontaneous rupture of ear drum, left ear Concussion Qualifiers: Encounter type: initial encounter Loss of consciousness presence/duration: without LOC Qualified Code(s): S06.0X0A - Concussion without loss of consciousness, initial encounter Condition: Stable Instructions: ED Otitis Media Acute Adult, ED Concussion Follow-Up: Lorie Glynn ARNP [Primary Care Provider] - Prescriptions: Azithromycin [Zithromax] 250 mg PO DAILY #6 tablet
[2018-01-08] MEDS ORDERED: CHERRY SYRUP 10 ML UDC PO ONE (07:45)
--- NOTE | 2018-01-08 08:20 | CT Report ---
Procedure Date: 01/08/2018 Accession Number: [id number] / [id number] Procedure: CT - Head W/O CPT Code: FULL RESULT: EXAM: CT HEAD EXAM DATE: 01/08/2018 08:03 AM. CLINICAL HISTORY: Head injury, on coumadin. COMPARISON: 10/14/2017. TECHNIQUE: Multiaxial CT images were obtained from the foramen magnum to the vertex. Reformats: Coronal. IV contrast: None. In accordance with CT protocol optimization, one or more of the following dose reduction techniques were utilized for this exam: automated exposure control, adjustment of mA and/or KV based on patient size, or use of iterative reconstructive technique. FINDINGS: Parenchyma: No intraparenchymal hemorrhage. No evidence of mass, midline shift, or CT findings of infarction. Lopez-white differentiation is distinct. Extraaxial Spaces: Normal for age. No subdural or epidural collections identified. Ventricles: Normal in size and position. Sinuses and Orbits: Imaged paranasal sinuses and mastoids show no significant abnormality. There is evidence of prior right orbital surgery. Bones: No evidence of fracture or calvarial defect. Other: There is focal subcutaneous soft tissue swelling in the left parietal region. IMPRESSION: 1. No intracranial hemorrhage or other acute intracranial abnormality. 2. Focal subcutaneous soft tissue swelling the left parietal region. RADIA
--- NOTE | 2018-01-08 08:27 | CT Report ---
Procedure Date: 01/08/2018 Accession Number: [id number] / [id number] Procedure: CT - Cervical Spine W/O CPT Code: FULL RESULT: EXAM: CT CERVICAL SPINE WITHOUT CONTRAST DATE: 01/08/2018 08:03 AM. HISTORY: Head injury, neck pain. Fell, hit back of head. COMPARISONS: MRI of the cervical spine without contrast 09/07/2013. TECHNIQUE: Thin-section axial images were acquired of the cervical spine without contrast. Post-processing: Coronal and sagittal reformats. Other: None. In accordance with CT protocol optimization, one or more of the following dose reduction techniques were utilized for this exam: automated exposure control, adjustment of mA and/or KV based on patient size, or use of iterative reconstructive technique. FINDINGS: Alignment: No scoliosis or spondylolisthesis. Bones: No fracture or bone lesion. Interspace Levels/Facets: There are mild degenerative changes at the atlantodental joint. There are moderate degenerative changes at the C2-C3 facets bilaterally. Musculature: Normal. No fatty atrophy. Other: There are extensive carotid and vertebral artery atherosclerotic calcifications. The paravertebral and prevertebral soft tissues are otherwise unremarkable. The lung apices are clear. IMPRESSION: 1. No acute osseous abnormality of the cervical spine. 2. Mild degenerative changes at the atlantodental joint and C2-C3 facet joints bilaterally. RADIA
[2018-01-08 09:43] VITALS: BP 124/84
== END 2018-01-08 09:54 | disposition home or self-care (01) ==
LOC: EDUNIT# → ED 07:14
DX: H66.002 Acute suppurative otitis media without spontaneous rupture of ear drum, left ear (principal); S06.0X0A Concussion without loss of consciousness, initial encounter; W18.30XA Fall on same level, unspecified, initial encounter; Y92.009 Unspecified place in unspecified non-institutional (private) residence as the place of occurrence of the external cause; Z79.01 Long term (current) use of anticoagulants; I10 Essential (primary) hypertension; E78.00 Pure hypercholesterolemia, unspecified; E11.9 Type 2 diabetes mellitus without complications; F17.200 Nicotine dependence, unspecified, uncomplicated
CPT/HCPCS: 70450; 72125; 85610; 99283; A9270

== ENCOUNTER 2018-01-15 10:13 | Outpatient (CLI) | payer MEDICAID | END 2018-01-15 10:14 | LOC: LAB.S 10:13 | PROVIDERS: ATTEND Nurse Practitioner Family | DX: I48.91 Unspecified atrial fibrillation (principal) | CPT/HCPCS: 85610 ==

== ENCOUNTER 2018-01-29 08:00 | Outpatient (CLI) | payer MEDICAID | END 2018-01-29 08:01 | LOC: LAB.S 08:00 | PROVIDERS: ATTEND Nurse Practitioner Family | DX: I48.91 Unspecified atrial fibrillation (principal) | CPT/HCPCS: 85610 ==

== ENCOUNTER 2018-02-12 14:19 | Outpatient (CLI) | payer MEDICAID | END 2018-02-12 14:20 | disposition home or self-care (01) | LOC: LAB.S 14:19 | PROVIDERS: ATTEND Nurse Practitioner Family | DX: I48.91 Unspecified atrial fibrillation (principal) | CPT/HCPCS: 85610 ==

== ENCOUNTER 2018-03-08 15:10 | Emergency (ER) | payer MEDICAID ==
[2018-03-08 16:10] LABS: BASOPHILS % (AUTO) 0.8 %; EOSINOPHILS # (AUTO) 0.1 10^3/uL (0.0-0.7); EOSINOPHILS % (AUTO) 1.3 %; LYMPHOCYTES # (AUTO) 0.5 10^3/uL (1.5-3.5); LYMPHOCYTES % (AUTO) 11.4 %; MEAN CORPUSCULAR HEMOGLOBIN 32.4 pg (27.0-31.0); MEAN CORPUSCULAR HGB CONC 33.1 g/dL (32.0-36.0); MEAN CORPUSCULAR VOLUME 97.9 fL (81.0-99.0); MEAN PLATELET VOLUME 8.3 fL (7.9-10.8); MONOCYTES # (AUTO) 0.4 10^3/uL (0.0-1.0); MONOCYTES % (AUTO) 8.8 %; NEUTROPHILS # (AUTO) 3.8 10^3/uL (1.5-6.6); NEUTROPHILS % (AUTO) 77.7 %; PLT - PLATELET COUNT 215 10^3/uL (130-450); RED BLOOD COUNT 3.41 10^6/uL (4.20-5.40); RED CELL DISTRIBUTION WIDTH 19.7 % (12.0-15.0); WHITE BLOOD COUNT 4.8 x10^3/uL (4.8-10.8)
[2018-03-08] MEDS ORDERED: HYDROcod/ACETAM 5/325 MG TABLET PO STA (16:22)
--- NOTE | 2018-03-08 16:25 | ED Physician Documentation ---
History of Present Illness - Stated complaint Stated Complaint: HEART RATE ISSUES - Chief complaint Chief Complaint: Cardiac - History obtained from History obtained from: Patient - History of Present Illness Timing: How many weeks ago (4) - Additonal information Additional information: 47-year-old female has had an issue with some difficulty breathing and a cough for the past month. This is become worse over the last week and today she feels chills. She also is complaining of a rapid irregular heart rate. Review of Systems Constitutional: reports: Chills, Myalgias, Fatigue Eyes: denies: Decreased vision Ears: denies: Ear pain Nose: reports: Congestion. denies: Rhinorrhea / runny nose Throat: denies: Sore throat Cardiac: reports: Chest pain / pressure. denies: Palpitations, Pedal edema, Calf pain Respiratory: reports: Dyspnea, Cough GI: denies: Nausea, Vomiting, Diarrhea : denies: Frequency Skin: denies: Rash Musculoskeletal: denies: Neck pain, Back pain, Extremity pain Neurologic: reports: Generalized weakness. 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 HEENT: Cataracts, Other - Present Medications Home Medications: Ambulatory Orders Medication Instructions Recorded Confirmed Labetalol HCl [Trandate] 100 mg PO BID 11/20/12 04/11/17 Montelukast Sodium [Singulair] 10 mg PO DAILY 11/25/12 04/11/17 raNITIdine [Zantac] 1 tab PO BID 08/22/14 04/11/17 Albuterol Sulfate [Proair 90 mcg IH Q6HR PRN 06/02/15 04/11/17 Respiclick] Loratadine 10 mg PO DAILY 06/02/15 04/11/17 Bisacodyl [Dulcolax] 10 mg PO DAILY PRN #10 tablet 09/27/16 04/11/17 Calcium Acetate 1,334 mg PO TIDWM 09/27/16 04/11/17 Furosemide [Lasix] 160 mg PO BID 09/27/16 04/11/17 Gabapentin 900 mg PO DAILY PM 09/27/16 04/11/17 Hydrocodone/Acetaminophen [Vicodin 0 mg PO .FREQ 09/27/16 04/11/17 Hp 10-300 mg Tablet] Lisinopril 2.5 mg PO DAILY 09/27/16 04/11/17 Omeprazole 40 mg PO BID 09/27/16 04/11/17 Sertraline [Zoloft] 25 mg PO DAILY 09/27/16 04/11/17 hydrALAZINE [Apresoline] 25 mg PO BID 09/27/16 04/11/17 hydrOXYzine HCl [Hydroxyzine HCl] 25 mg PO .FREQ 09/27/16 04/11/17 metOLazone [Metolazone] 5 mg PO DAILY 09/27/16 04/11/17 Albuterol Sulfate [Proair Hfa 8.5 gm IH QID #1 hfa.aer.ad 10/11/16 04/11/17 Inhaler] Baclofen 5 - 10 mg PO PRN PRN 10/11/16 04/11/17 Hydrocodone Bit/Homatrop Me-Br 1 each PO TID PRN #14 tablet 02/23/17 04/11/17 [Hydrocod-Homatrop 5-1.5 mg Tab] Levofloxacin [Levaquin] 500 mg PO DAILY #7 tablet 04/11/17 Azithromycin [Zithromax] 250 mg PO DAILY #6 tablet 01/08/18 Amox/Clav 500/125 [Augmentin] 1 each PO DAILY #7 tablet 03/08/18 - Allergies Allergies/Adverse Reactions: Allergies Allergy/AdvReac Type Severity Reaction Status Date / Time No Known Drug Allergies Allergy Verified 02/23/17 10:14 - Social History Does the pt smoke?: Yes Smoking Status: Current every day smoker Does the pt drink ETOH?: Yes Does the pt have substance abuse?: No - Immunizations Immunizations are current?: Yes - POLST Patient has POLST: No PD ED PE NORMAL - Vitals Vital signs reviewed: Yes - General General: Alert and oriented X 3, Well developed/nourished, Other (The patient has a flat affect and speaks slowly) - HEENT HEENT: Atraumatic, PERRL, EOMI - Neck Neck: Supple, no meningeal sign, No bony TTP - Cardiac Cardiac: Other (irregularly irregular rate and rhythm) - Respiratory Respiratory: No respiratory distress, Other (rhonchi in the left base) - Abdomen Abdomen: Soft, Non tender - Back Back: No CVA TTP, No spinal TTP - Derm Derm: Normal color, Warm and dry, No rash - Extremities Extremities: No deformity, No edema - Neuro Neuro: Alert and oriented X 3, 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, No motor deficit, No sensory deficit, Normal speech Eye Opening: Spontaneous Motor: Obeys Commands Verbal: Oriented GCS Score: 15 - Psych Psych: Normal mood, Normal affect Results - Vitals Vitals: Vital Signs - 24 hr 03/08/18 15:21 Temperature 36.8 C Heart Rate 140 H Respiratory 18 Rate Blood Pressure 151/110 H O2 Saturation 99 Oxygen O2 Source Room air - EKG (time done) 1526 Rate: Rate (enter#) (121) Rhythm: Atrial flutter [place]: RAD Compare to prior EKG: Unchanged from prior EKG (10-24-17) Computer interpretation: Agree with computer - Labs Labs: Laboratory Tests 03/08/18 03/08/18 03/08/18 15:26 16:06 16:06 WBC 4.8 RBC 3.41 L Hgb 11.0 L Hct 33.4 L MCV 97.9 MCH 32.4 H MCHC 33.1 RDW 19.7 H Plt Count 215 MPV 8.3 Neut # (Auto) 3.8 Lymph # (Auto) 0.5 L Mckean # (Auto) 0.4 Eos # (Auto) 0.1 Baso # (Auto) 0.0 Absolute Nucleated RBC 0.00 Nucleated RBC % 0.0 Sodium 135 Potassium 3.5 Chloride 94 L Carbon Dioxide 32 Anion Gap 9.0 BUN 19 Creatinine 2.7 H Estimated GFR (MDRD) 19 L Glucose 136 H Calcium 8.7 Total Bilirubin 2.3 H AST 15 ALT < 10 L Alkaline Phosphatase 252 H Troponin I 0.05 Total Protein 7.1 Albumin 2.5 L Globulin 4.6 H Albumin/Globulin Ratio 0.5 L Lipase 25 - Rads (name of study) 2 veiw chest Radiology: Prelim report reviewed (Impression: Nonspecific diffuse pulmonary findings could be due to either mild CHF/volume overload without aimee pulmonary edema or atypical infection.), EMP read indepedently, See rad report Procedures - IVC sono (time) 1620 Bedside IVC sono: IVC measures (cm) (1.89), Euvolemia PD MEDICAL DECISION MAKING - ED course Complexity details: reviewed old records, reviewed results, re-evaluated patient , considered differential, d/w patient ED course: 47-year-old female with end-stage renal disease on dialysis as developed increasing difficulty with breathing and a cough over the past month. She does have some rhonchi in the left base and my concern is for a atypical infection. She is in afib with RVR and she responds well to 20 mg of IV diltiazem . She is administered dexamethasone we will put her on some Augmentin. - Sepsis Event Vital Signs: Vital Signs - 24 hr 03/08/18 15:21 Temperature 36.8 C Heart Rate 140 H Respiratory 18 Rate Blood Pressure 151/110 H O2 Saturation 99 Oxygen O2 Source Room air Departure - Departure Disposition: 01 Home, Self Care Clinical Impression: Pneumonia Qualifiers: Pneumonia type: due to unspecified organism Laterality: left Lung location: lower lobe of lung Qualified Code(s): J18.1 - Lobar pneumonia, unspecified organism Condition: Stable Instructions: ED Pneumonia Adult Follow-Up: Lorie Glynn ARNP [Primary Care Provider] - Prescriptions: Amox/Clav 500/125 [Augmentin] 1 each PO DAILY #7 tablet Comments: Today it appears that you have a community-acquired pneumonia and we are starting you on some Augmentin. Because you are on hemodialysis he will need to take this medication daily.
[2018-03-08] MEDS ORDERED: diltiaZEM INJ 5 MG/ML VIAL IVP STA (16:27)
[2018-03-08 16:29] LABS: ALBUMIN 2.5 g/dL (3.2-5.5); ALBUMIN/GLOBULIN RATIO 0.5 (1.0-2.2); ALKALINE PHOSPHATASE 252 IU/L (42-121); ALT ALANINE AMINOTRANSFERASE < 10 IU/L (10-60); AST ASPARTATE AMINOTRANSFERASE 15 IU/L (10-42); BILIRUBIN,TOTAL 2.3 mg/dL (0.2-1.0); BUN - BLOOD UREA NITROGEN 19 mg/dL (6-20); CALCIUM 8.7 mg/dL (8.5-10.3); CARBON DIOXIDE - CO2 32 mmol/L (21-32); CHLORIDE 94 mmol/L (101-111); CREATININE 2.7 mg/dL (0.4-1.0); GFR - MDRD 19 (>89); GLUCOSE 136 mg/dL (70-100); LIPASE 25 U/L (22-51); SODIUM 135 mmol/L (135-145); TOTAL PROTEIN 7.1 g/dL (6.7-8.2)
--- NOTE | 2018-03-08 17:03 | XRAY Report ---
Reason: L lower lung rhonchi Procedure Date: 03/08/2018 Accession Number: [id number] / [id number] Procedure: XR - Chest 2 View X-Ray CPT Code: 42251 FULL RESULT: EXAM: CHEST RADIOGRAPHY EXAM DATE: 03/08/2018 04:45 PM. CLINICAL HISTORY: Left lower lung rhonchi COMPARISON: Chest radiographs 12/12/2013, 09/14/2017 and 10/14/2017. TECHNIQUE: 2 views. FINDINGS: Lungs/Pleura: Mild diffuse interstitial prominence and bronchial wall thickening. No pleural effusion or pneumothorax. No dense focal consolidation. Mediastinum: Heart and mediastinal contours are unchanged with similar mild cardiomegaly and prominence of the main pulmonary arteries suggesting pulmonary hypertension. Other: Old healed bilateral rib fractures noted. Right upper quadrant clips suggest prior cholecystectomy. IMPRESSION: Nonspecific diffuse pulmonary findings could be due to either mild CHF/volume overload without aimee pulmonary edema or atypical infection. RADIA
[2018-03-08] MEDS ORDERED: ONDANSETRON ODT 4 MG TABLET TL STA (17:22)
[2018-03-08] MEDS ORDERED: LIDOCAINE 1% 2 ML VIAL SUBQ ONE ×2 (17:22→17:34)
[2018-03-08] MEDS ORDERED: HYDROmorphone 1 MG/ML CARPUJECT IM STA (17:22)
[2018-03-08] MEDS ORDERED: cefTRIAXone 1 GM VIAL IM STA (17:22)
[2018-03-08] MEDS ORDERED: cefTRIAXone 1 GM in SODIUM CHLORIDE 0.9% MINIBAG 100 ML IV STA (17:34)
[2018-03-08] MEDS ORDERED: ONDANSETRON 4 MG/2 ML VIAL IVP STA (17:34)
[2018-03-08] MEDS ORDERED: HYDROmorphone 1 MG/ML CARPUJECT IVP STA (17:34)
[2018-03-08 18:29] VITALS: BP 137/77
== END 2018-03-08 18:29 | disposition home or self-care (01) ==
LOC: ED 15:10
DX: J18.1 Lobar pneumonia, unspecified organism (principal); I12.0 Hypertensive chronic kidney disease with stage 5 chronic kidney disease or end stage renal disease; E11.22 Type 2 diabetes mellitus with diabetic chronic kidney disease; N18.6 End stage renal disease; Z99.2 Dependence on renal dialysis; E78.00 Pure hypercholesterolemia, unspecified; E86.0 Dehydration; F17.200 Nicotine dependence, unspecified, uncomplicated; I48.92 Unspecified atrial flutter; I44.1 Atrioventricular block, second degree
CPT/HCPCS: 36415; 71046; 80053; 83690; 84484; 85025; 93005; 96365; 96375; 99283; 99284; A9270; J1170

== ENCOUNTER 2018-05-03 14:14 | Emergency (ER) | payer MEDICAID ==
[2018-05-03 14:41] LABS: BASOPHILS # (AUTO) 0.1 10^3/uL (0.0-0.1); BASOPHILS % (AUTO) 1.3 %; EOSINOPHILS # (AUTO) 0.3 10^3/uL (0.0-0.7); EOSINOPHILS % (AUTO) 4.6 %; HGB - HEMOGLOBIN 9.5 g/dL (12.0-16.0); LYMPHOCYTES # (AUTO) 0.5 10^3/uL (1.5-3.5); LYMPHOCYTES % (AUTO) 7.7 %; MEAN CORPUSCULAR HGB CONC 33.4 g/dL (32.0-36.0); MEAN CORPUSCULAR VOLUME 98.8 fL (81.0-99.0); MONOCYTES # (AUTO) 0.5 10^3/uL (0.0-1.0); MONOCYTES % (AUTO) 8.3 %; NEUTROPHILS # (AUTO) 4.9 10^3/uL (1.5-6.6); NEUTROPHILS % (AUTO) 78.1 %; PLT - PLATELET COUNT 292 10^3/uL (130-450); RED BLOOD COUNT 2.87 10^6/uL (4.20-5.40); WHITE BLOOD COUNT 6.3 x10^3/uL (4.8-10.8)
--- NOTE | 2018-05-03 14:48 | ED Physician Documentation ---
History of Present Illness - Stated complaint Stated Complaint: HIGH BP - Chief complaint Chief Complaint: Cardiac - History obtained from History obtained from: Patient - History of Present Illness Timing: Today Pain level max: 0 Pain level now: 0 Improved by: nothing Worsened by: nothing - Additonal information Additional information: 47 yo F on dialysis, states that she has had increasing anxiety for the past week. States saw her counselor yesterday. states continued anxiety today. Denies SI/HI. states she is here to help calm herself down. Does not want to be hospitalized. Review of Systems Ten Systems: 10 systems reviewed and negative Constitutional: denies: Fever, Chills Ears: denies: Ear pain Nose: denies: Rhinorrhea / runny nose, Congestion Throat: denies: Sore throat Cardiac: denies: Chest pain / pressure Respiratory: denies: Cough GI: denies: Abdominal Pain, Nausea, Vomiting, Diarrhea Skin: denies: Rash Musculoskeletal: denies: Neck pain, Back pain Neurologic: denies: Focal weakness, Numbness, Headache Psychiatric: denies: Depressed, Suicidal, Homicidal PD PAST MEDICAL HISTORY - Past Medical History Past Medical History: Yes Cardiovascular: Hypertension, High cholesterol Respiratory: Asthma, Pneumonia, Other Neuro: TIA, Peripheral neuropathy Endocrine/Autoimmune: Type 2 diabetes GI: GERD PHOTOCOPY OPERATOR: None : Dialysis, Renal insuffiency, Other HEENT: Other Psych: Depression, Anxiety Musculoskeletal: Osteoarthritis, Chronic back pain Derm: None - Past Surgical History Past Surgical History: Yes General: Cholecystectomy, Appendectomy, Bowel surgery Ortho: Carpal Tunnel surgery, Other /PHOTOCOPY OPERATOR: section, 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 Cardiovascular: Other HEENT: Cataracts, Other - Present Medications Home Medications: Ambulatory Orders Medication Instructions Recorded Confirmed Labetalol HCl [Trandate] 100 mg PO BID 11/20/12 04/11/17 Montelukast Sodium [Singulair] 10 mg PO DAILY 11/25/12 04/11/17 raNITIdine [Zantac] 1 tab PO BID 08/22/14 04/11/17 Albuterol Sulfate [Proair 90 mcg IH Q6HR PRN 06/02/15 04/11/17 Respiclick] Loratadine 10 mg PO DAILY 06/02/15 04/11/17 Bisacodyl [Dulcolax] 10 mg PO DAILY PRN #10 tablet 09/27/16 04/11/17 Calcium Acetate 1,334 mg PO TIDWM 09/27/16 04/11/17 Furosemide [Lasix] 160 mg PO BID 09/27/16 04/11/17 Gabapentin 900 mg PO DAILY PM 09/27/16 04/11/17 Hydrocodone/Acetaminophen [Vicodin 0 mg PO .FREQ 09/27/16 04/11/17 Hp 10-300 mg Tablet] Lisinopril 2.5 mg PO DAILY 09/27/16 04/11/17 Omeprazole 40 mg PO BID 09/27/16 04/11/17 Sertraline [Zoloft] 25 mg PO DAILY 09/27/16 04/11/17 hydrALAZINE [Apresoline] 25 mg PO BID 09/27/16 04/11/17 hydrOXYzine HCl [Hydroxyzine HCl] 25 mg PO .FREQ 09/27/16 04/11/17 metOLazone [Metolazone] 5 mg PO DAILY 09/27/16 04/11/17 Albuterol Sulfate [Proair Hfa 8.5 gm IH QID #1 hfa.aer.ad 10/11/16 04/11/17 Inhaler] Baclofen 5 - 10 mg PO PRN PRN 10/11/16 04/11/17 Hydrocodone Bit/Homatrop Me-Br 1 each PO TID PRN #14 tablet 02/23/17 04/11/17 [Hydrocod-Homatrop 5-1.5 mg Tab] Levofloxacin [Levaquin] 500 mg PO DAILY #7 tablet 04/11/17 Azithromycin [Zithromax] 250 mg PO DAILY #6 tablet 01/08/18 Amox/Clav 500/125 [Augmentin] 1 each PO DAILY #7 tablet 03/08/18 - Allergies Allergies/Adverse Reactions: Allergies Allergy/AdvReac Type Severity Reaction Status Date / Time No Known Drug Allergies Allergy Verified 05/03/18 14:23 - Social History Does the pt smoke?: Yes Smoking Status: Current every day smoker Does the pt drink ETOH?: Yes Does the pt have substance abuse?: No - Immunizations Immunizations are current?: Yes - POLST Patient has POLST: No PD ED PE NORMAL - Vitals Vital signs reviewed: Yes - General General: Alert and oriented X 3, Other (anxious, tearful) - HEENT HEENT: Moist mucous membranes, Pharynx benign - Neck Neck: Supple, no meningeal sign - Cardiac Cardiac: Strong equal pulses, Other (tachycardic) - Respiratory Respiratory: No respiratory distress, Clear bilaterally - Abdomen Abdomen: Soft, Non tender, Non distended - Derm Derm: Warm and dry - Neuro Neuro: Alert and oriented X 3 - Psych Psych: Other (tearful, anxious) Results - Vitals Vitals: Vital Signs - 24 hr 05/03/18 05/03/18 05/03/18 14:18 14:28 15:35 Temperature 36.8 C Heart Rate 150 H 149 H Respiratory 22 20 Rate Blood Pressure 178/110 H 155/138 H Blood Pressure 178/110 H [Left] O2 Saturation 99 100 05/03/18 05/03/18 05/03/18 17:25 18:06 19:10 Temperature 37.5 C Heart Rate 151 H 148 H 148 H Respiratory 17 30 H 30 H Rate Blood Pressure 177/117 H 168/118 H Blood Pressure [Left] O2 Saturation 99 94 98 05/03/18 05/03/18 05/03/18 20:31 20:39 20:44 Temperature Heart Rate 149 H 122 H 113 H Respiratory 16 16 19 Rate Blood Pressure 159/112 H 142/93 H 132/88 H Blood Pressure [Left] O2 Saturation 100 97 94 05/03/18 05/03/18 05/03/18 20:49 21:34 22:03 Temperature Heart Rate 129 H 150 H 149 H Respiratory 25 H 16 24 Rate Blood Pressure 150/90 H 164/106 H 154/92 H Blood Pressure [Left] O2 Saturation 96 96 90 L Oxygen O2 Source Room air - EKG (time done) 1425 Rate: Rate (enter#) (150) Rhythm: Sinus tachycardia [place]: Normal Intervals: Normal [place] QRS: Normal Ischemia: Normal ST segments Computer interpretation: Agree with computer 2107 Rate: Rate (enter#) (137) Rhythm: Atrial flutter (RVR) [place]: RAD QRS: Normal Ischemia: Non specific changes - Labs Labs: Laboratory Tests 05/03/18 05/03/18 05/03/18 14:30 14:30 14:30 WBC 6.3 RBC 2.87 L Hgb 9.5 L Hct 28.4 L MCV 98.8 MCH 33.0 H MCHC 33.4 RDW 16.0 H Plt Count 292 MPV 8.0 Neut # (Auto) 4.9 Lymph # (Auto) 0.5 L [place] # (Auto) 0.5 Eos # (Auto) 0.3 Baso # (Auto) 0.1 Absolute Nucleated RBC 0.00 Nucleated RBC % 0.0 PT 14.6 H INR 1.3 H Sodium 136 Potassium 3.7 Chloride 92 L Carbon Dioxide 32 Anion Gap 12.0 BUN 24 H Creatinine 2.4 H Estimated GFR (MDRD) 21 L Glucose 242 H Calcium 8.9 Phosphorus 3.8 Magnesium 2.0 Total Bilirubin 1.4 H AST 22 ALT 10 Alkaline Phosphatase 329 H Total Protein 7.9 Albumin 2.5 L Globulin 5.4 H Albumin/Globulin Ratio 0.5 L Lipase 33 Urine Color Urine Clarity Urine pH Ur Specific [place] Urine Protein Urine Glucose (UA) Urine Ketones Urine Occult Blood Urine Nitrite Urine Bilirubin Urine Urobilinogen Ur Leukocyte Esterase Urine RBC Urine WBC Ur Squamous Epith Cells Urine Bacteria Ur Microscopic Review Urine Culture Comments Urine Opiates Screen Ur Oxycodone Screen Urine Methadone Screen Ur Propoxyphene Screen Ur Barbiturates Screen Ur Tricyclics Screen Ur Phencyclidine Scrn Ur Amphetamine Screen U Methamphetamines Scrn U Benzodiazepines Scrn Urine Cocaine Screen U Cannabinoids Screen 05/03/18 19:35 WBC RBC Hgb Hct MCV MCH MCHC RDW Plt Count MPV Neut # (Auto) Lymph # (Auto) [place] # (Auto) Eos # (Auto) Baso # (Auto) Absolute Nucleated RBC Nucleated RBC % PT INR Sodium Potassium Chloride Carbon Dioxide Anion Gap BUN Creatinine Estimated GFR (MDRD) Glucose Calcium Phosphorus Magnesium Total Bilirubin AST ALT Alkaline Phosphatase Total Protein Albumin Globulin Albumin/Globulin Ratio Lipase Urine Color YELLOW Urine Clarity CLEAR Urine pH 8.5 H Ur Specific [place] 1.020 Urine Protein >=300 H Urine Glucose (UA) 500 H Urine Ketones NEGATIVE Urine Occult Blood SMALL H Urine Nitrite NEGATIVE Urine Bilirubin NEGATIVE Urine Urobilinogen 0.2 (NORMAL) Ur Leukocyte Esterase NEGATIVE Urine RBC 6-10 H Urine WBC 0-3 Ur Squamous Epith Cells RARE Squamous Urine Bacteria None Seen Ur Microscopic Review INDICATED Urine Culture Comments NOT INDICATED Urine Opiates Screen POSITIVE H Ur Oxycodone Screen POSITIVE H Urine Methadone Screen NEGATIVE Ur Propoxyphene Screen NEGATIVE Ur Barbiturates Screen NEGATIVE Ur Tricyclics Screen NEGATIVE Ur Phencyclidine Scrn NEGATIVE Ur Amphetamine Screen NEGATIVE U Methamphetamines Scrn NEGATIVE U Benzodiazepines Scrn NEGATIVE Urine Cocaine Screen NEGATIVE U Cannabinoids Screen POSITIVE H - Rads (name of study) ctpa Radiology: Prelim report reviewed, EMP read contemporaneously, See rad report (No pulmonary embolism is identified. Assessment for subsegmental emboli is moderately degraded by motion. 2. Mild cardiomegaly. Three-vessel coronary ar saurabh calcification. Mild contrast reflux into the IVC suggests decreased cardiac output. 3. Small right pleural effusion likely related to CHF. No aimee interstitial lung edema. 4. Small amount of fluid in the lesser peritoneal sac. Moderate body wall edema. The findings suggest third spacing of fluid related to CHF/volume overload. ) PD MEDICAL DECISION MAKING - ED course Complexity details: reviewed results, re-evaluated patient, considered differential, d/w patient, d/w bilingual sales consultant ED course: Patient is a 47-year-old female who presents to the emergency department with what appeared to be an anxiety attack and tachycardia upon initial arrival.. To be sinus tach on initial EKG, but may have been a flutter with 2-1 block. No evidence of pulmonary embolus on CT scan. She was then given diltiazem after Ativan and heart rate slowed to the 110's. Will transfer to [facility] for further care. Dr. Tara Browne graciously accepts in transfer 2144. COBRA forms completed This document was made in part using voice recognition software. While efforts are made to proofread this document, sound alike and grammatical errors may occur. Departure - Departure Disposition: 02 Transfer Acute Care Hosp Clinical Impression: Atrial flutter with rapid ventricular response, Dialysis patient Condition: Stable
[2018-05-03 14:55] LABS: ALBUMIN 2.5 g/dL (3.2-5.5); ALBUMIN/GLOBULIN RATIO 0.5 (1.0-2.2); BILIRUBIN,TOTAL 1.4 mg/dL (0.2-1.0); CALCIUM 8.9 mg/dL (8.5-10.3); CREATININE 2.4 mg/dL (0.4-1.0); PHOSPHORUS 3.8 mg/dL (2.5-4.6); TOTAL PROTEIN 7.9 g/dL (6.7-8.2)
[2018-05-03] MEDS ORDERED: LORazepam 2 MG/ML VIAL IVP STA ×2 (14:55→21:36)
[2018-05-03] MEDS ORDERED: LORazepam 2 MG/ML VIAL IM STA (15:36)
[2018-05-03] MEDS ORDERED: HALOPERIDOL 5 MG/ML VIAL IM STA (16:46)
[2018-05-03] MEDS ORDERED: IOPAMIDOL-300 100 ML VIAL ONE (18:27)
[2018-05-03] MEDS ORDERED: IOPAMIDOL-300 100 ML VIAL IVP ONE (19:30)
[2018-05-03 19:42] LABS: MUDS CUTOFF CONCENTRATIONS CUTOFF CONC BELOW:
--- NOTE | 2018-05-03 19:46 | CT Report ---
Reason: unexplained tachycardia Procedure Date: 05/03/2018 Accession Number: [id number] / [id number] Procedure: CT - Chest Angio (PE) CPT Code: FULL RESULT: EXAM: CT ANGIOGRAM CHEST EXAM DATE: 05/03/2018 07:17 PM. CLINICAL HISTORY: Unexplained tachycardia. COMPARISON: CHEST 2 VIEW 03/08/2018 4:32 PM CHEST W/ 03/02/2016 2:00 PM. TECHNIQUE: Routine helical imaging was performed through the chest in the pulmonary arterial phase. IV Contrast: ISOVUE 300 80mL. Reconstructions: Coronal 3-D MIP reconstructions.Sagittal and coronal. In accordance with CT protocol optimization, one or more of the following dose reduction techniques were utilized for this exam: automated exposure control, adjustment of mA and/or KV based on patient size, or use of iterative reconstructive technique. FINDINGS: Pulmonary Arteries: Diagnostic quality: Adequate through the segmental arteries. Motion artifact moderately degrades assessment for subsegmental emboli. No evidence for acute or chronic pulmonary emboli. Heart: Mild cardiomegaly. Mild mitral annulus calcification. Extensive three-vessel coronary artery calcification. RV/LV is within normal limits. There is no interventricular septal bowing. There is mild reflux of contrast material in the IVC. Lungs/Pleura: Small right pleural effusion, new from 2016. There is mild right hemidiaphragm elevation, as before. Respiratory motion artifact is noted. There is no confluent airspace consolidation. There is no aimee interstitial abnormality. There are no discrete nodules. Central airways are within normal limits accounting for motion artifact. Mediastinum: Lower thyroid gland and esophagus are unremarkable. No lymphadenopathy. Thoracic Aorta: There is moderate aortoiliac atherosclerotic calcification without abnormal dilation. The thoracic aorta is essentially unopacified with contrast at the time of the scan. Upper Abdomen: Gallbladder surgically absent. Small amount of fluid in the lesser peritoneal sac. Other: Moderate generalized body wall edema. Bones unremarkable. IMPRESSION: 1. No pulmonary embolism is identified. Assessment for subsegmental emboli is moderately degraded by motion. 2. Mild cardiomegaly. Three-vessel coronary artery calcification. Mild contrast reflux into the IVC suggests decreased cardiac output. 3. Small right pleural effusion likely related to CHF. No aimee interstitial lung edema. 4. Small amount of fluid in the lesser peritoneal sac. Moderate body wall edema. The findings suggest third spacing of fluid related to CHF/volume overload. RADIA
[2018-05-03 19:48] LABS: BILIRUBIN,URINE NEGATIVE (NEGATIVE); CLARITY,URINE CLEAR (CLEAR); GLUCOSE, URINE (UA) 500 mg/dL (NEGATIVE); KETONES,URINE (UA) NEGATIVE (NEGATIVE); LEUKOCYTE ESTERASE, URINE NEGATIVE (NEGATIVE); NITRITE,URINE NEGATIVE (NEGATIVE); OCCULT BLOOD,URINE SMALL (NEGATIVE); PH,URINE 8.5 PH (5.0-7.5); PROTEIN,URINE >=300 mg/dL (NEGATIVE); UROBILINOGEN,URINE 0.2 (NORMAL) E.U./dL (NORMAL)
[2018-05-03 19:56] LABS: AMPHETAMINE SCREEN,URINE NEGATIVE (NEGATIVE); BENZODIAZEPINES SCREEN, URINE NEGATIVE (NEGATIVE); COCAINE SCREEN URINE NEGATIVE (NEGATIVE); METHADONE SCREEN, URINE NEGATIVE (NEGATIVE); METHAMPHETAMINES SCREEN, URINE NEGATIVE (NEGATIVE); OPIATE SCREEN, URINE POSITIVE (NEGATIVE); OXYCODONE SCREEN, URINE POSITIVE (NEGATIVE); PROPOXYPHENE SCREEN, URINE NEGATIVE (NEGATIVE); TRICYCLIC ANTIDEPRESSANT,URINE NEGATIVE (NEGATIVE)
[2018-05-03 20:03] LABS: BACTERIA,URINE None Seen /HPF (None Seen); SQUAMOUS EPITHELIAL CELL,UR RARE Squamous (<= Few)
[2018-05-03] MEDS ORDERED: diltiaZEM INJ 5 MG/ML VIAL IVP STA (20:24)
[2018-05-03] MEDS ORDERED: diltiaZEM INJ 125 MG in DEXTROSE 5% 100 ML IV STA (20:59)
[2018-05-03] MEDS ORDERED: diltiaZEM INJ 5 MG/ML VIAL ONE (21:10)
[2018-05-03 22:08] LABS: INR 1.3 (0.8-1.2); PT - PROTHROMBIN TIME 14.6 secs (9.9-12.6)
[2018-05-03 22:45] VITALS: BP 153/94
== END 2018-05-03 22:55 | disposition short-term general hospital (02) ==
LOC: ED 14:14
DX: I48.92 Unspecified atrial flutter (principal); I45.81 Long QT syndrome; E78.00 Pure hypercholesterolemia, unspecified; E11.42 Type 2 diabetes mellitus with diabetic polyneuropathy; F17.200 Nicotine dependence, unspecified, uncomplicated; N28.9 Disorder of kidney and ureter, unspecified; Z99.2 Dependence on renal dialysis; Z86.73 Personal history of transient ischemic attack (TIA), and cerebral infarction without residual deficits
CPT/HCPCS: 36415; 71275; 80053; 80306; 81001; 83690; 83735; 84100; 85025; 85610; 93005; 96365; 96372; 96375; 99284; 99285; J2060; Q9967; 81003; 87086

== ENCOUNTER 2018-05-03 22:59 | Outpatient (CLI) | payer MEDICAID | END 2018-05-03 23:00 | disposition short-term general hospital (02) | LOC: EMS 22:59 | PROVIDERS: ATTEND Surgery | DX: I48.91 Unspecified atrial fibrillation (principal); R46.4 Slowness and poor responsiveness; Z99.2 Dependence on renal dialysis | CPT/HCPCS: A0170; A0425; A0426; A0999 ==

== ENCOUNTER 2018-05-23 15:58 | Emergency (ER) | payer MEDICAID ==
[2018-05-23] MEDS ORDERED: BUFFERED LIDOCAINE 10 ML SYRINGE SUBQ STA (16:07)
--- NOTE | 2018-05-23 16:09 | ED Physician Documentation ---
History of Present Illness - Stated complaint Stated Complaint: BLEEDING FROM FISTULA LT ARM - History obtained from History obtained from: Patient, Family - History of Present Illness Timing: Yesterday - Additonal information Additional information: 47-year-old female with end-stage renal disease who is on dialysis had dialysis done yesterday following that she had a bleed from the puncture site and this is not resolved. She has been using a compression dressing on and she takes the dressing down the area still bleeding. She is on Coumadin she has not taken any yesterday or today. She has had a recent ablation and is no coumadin post op. The attempt is to get the INR to between 2-3 and the dose was increased recently. Review of Systems Constitutional: denies: Fever Eyes: reports: Other (eyes have been jaundiced). denies: Decreased vision Ears: denies: Ear pain Nose: denies: Congestion, Reviewed and negative Throat: denies: Sore throat Cardiac: denies: Chest pain / pressure, Palpitations Respiratory: denies: Dyspnea, Cough GI: denies: Abdominal Pain, Nausea, Vomiting : denies: Dysuria, Frequency Skin: reports: Laceration (s) (Bleeding from 2 puncture sites from yesterday's dialysis) Musculoskeletal: reports: Extremity pain Neurologic: reports: Generalized weakness. denies: Focal weakness, Numbness PD PAST MEDICAL HISTORY - Past Medical History Cardiovascular: Hypertension, High cholesterol Respiratory: Asthma, Pneumonia, Other Neuro: TIA, Peripheral neuropathy Endocrine/Autoimmune: Type 2 diabetes GI: GERD STONE BREAKER: None : Dialysis, Renal insuffiency, Other HEENT: Other Psych: Depression, Anxiety Musculoskeletal: Osteoarthritis, Chronic back pain Derm: None - Past Surgical History Past Surgical History: Yes General: Cholecystectomy, Appendectomy, Bowel surgery Ortho: Carpal Tunnel surgery, Other /STONE BREAKER: section, 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 Cardiovascular: Other HEENT: Cataracts, Other - Present Medications Home Medications: Ambulatory Orders Medication Instructions Recorded Confirmed Labetalol HCl [Trandate] 100 mg PO BID 11/20/12 04/11/17 Montelukast Sodium [Singulair] 10 mg PO DAILY 11/25/12 04/11/17 raNITIdine [Zantac] 1 tab PO BID 08/22/14 04/11/17 Albuterol Sulfate [Proair 90 mcg IH Q6HR PRN 06/02/15 04/11/17 Respiclick] RX: Loratadine 10 mg PO DAILY 06/02/15 04/11/17 Bisacodyl [Dulcolax] 10 mg PO DAILY PRN #10 tablet 09/27/16 04/11/17 Furosemide [Lasix] 160 mg PO BID 09/27/16 04/11/17 Hydrocodone/Acetaminophen [Vicodin 0 mg PO .FREQ 09/27/16 04/11/17 Hp 10-300 mg Tablet] RX: Calcium Acetate 1,334 mg PO TIDWM 09/27/16 04/11/17 RX: Gabapentin 900 mg PO DAILY PM 09/27/16 04/11/17 RX: Lisinopril 2.5 mg PO DAILY 09/27/16 04/11/17 RX: Omeprazole 40 mg PO BID 09/27/16 04/11/17 RX: Sertraline [Zoloft] 25 mg PO DAILY 09/27/16 04/11/17 RX: hydrALAZINE [Apresoline] 25 mg PO BID 09/27/16 04/11/17 RX: hydrOXYzine HCl [Hydroxyzine 25 mg PO .FREQ 09/27/16 04/11/17 HCl] RX: metOLazone [Metolazone] 5 mg PO DAILY 09/27/16 04/11/17 RX: Albuterol Sulfate [Proair Hfa 8.5 gm IH QID #1 hfa.aer.ad 10/11/16 04/11/17 Inhaler] RX: Baclofen 5 - 10 mg PO PRN PRN 10/11/16 04/11/17 Hydrocodone Bit/Homatrop Me-Br 1 each PO TID PRN #14 tablet 02/23/17 04/11/17 [Hydrocod-Homatrop 5-1.5 mg Tab] Levofloxacin [Levaquin] 500 mg PO DAILY #7 tablet 04/11/17 Azithromycin [Zithromax] 250 mg PO DAILY #6 tablet 01/08/18 Amox/Clav 500/125 [Augmentin] 1 each PO DAILY #7 tablet 03/08/18 - Allergies Allergies/Adverse Reactions: Allergies Allergy/AdvReac Type Severity Reaction Status Date / Time No Known Drug Allergies Allergy Verified 05/23/18 16:09 - Social History Does the pt smoke?: Yes Smoking Status: Current every day smoker Does the pt drink ETOH?: Yes Does the pt have substance abuse?: No - Immunizations Immunizations are current?: Yes - POLST Patient has POLST: No PD ED PE NORMAL - Vitals Vital signs reviewed: Yes (hypertensive ) - General General: Alert and oriented X 3, No acute distress, Well developed/nourished, Other (The patient does not appear ill today ) - HEENT HEENT: Atraumatic, PERRL, EOMI, Other (not much slceral icterus today) - Respiratory Respiratory: No respiratory distress - Derm Derm: Normal color, Warm and dry - Extremities Extremities: Other (There is a functioning shunt to the left arm and there are 2 puncture wounds that ooze when pressure is released. ) - Neuro Neuro: Alert and oriented X 3, water treatment technician 2-12 intact, No motor deficit, No sensory deficit, Normal speech Eye Opening: Spontaneous Motor: Obeys Commands Verbal: Oriented GCS Score: 15 - Psych Psych: Normal mood, Normal affect Results - Vitals Vitals: Vital Signs - 24 hr 05/23/18 05/23/18 05/23/18 16:03 17:41 17:47 Temperature 36.3 C L 36.1 C L Heart Rate 71 69 71 Respiratory 18 16 18 Rate Blood Pressure 188/92 H 172/65 H 182/88 H O2 Saturation 99 100 99 Oxygen O2 Source Room air - Labs Labs: Laboratory Tests 05/23/18 16:25 PT 112.3 H INR 10.2 H* Procedures - Laceration (location) left arm Length in cm: 0.5 Wound type: Clean, Other (2 tiny puncture wounds to the skin overlying the graft.) Neurovascular status: Sensory intact, Motor intact, Vascular intact Anesthesia: Lidocaine 1%, With bicarb Wound Preparation: Hibiclens, Irrigated copiously NS, Wound explored, To the base Skin layer closure: Nylon, Interrupted, Size #-0 - enter number (5-0), Sutures - enter # (one suture to each site) Other: Patient tolerated well, No complications, Neurovascular intact, Dressing applied, Tetanus UTD PD MEDICAL DECISION MAKING - ED course Complexity details: reviewed old records, reviewed results, re-evaluated patient, considered differential, d/w patient, d/w family, d/w regulatory affairs consultant (GRETA Akins consulted in the case and he will follow tomorrow as planned. ) ED course: 47-year-old dialysis patient who is on Coumadin has bleeding from her fistula puncture sites from yesterday that is persisted overnight. The area is cleansed and a single suture of 5-0 Ethilon is placed to each area after anesthetization with lidocaine with bicarb. Patient tolerates this well bleeding is stopped. She is found to have an INR of 10.2 and vitamin K 5mg orally is administered. She will follow up tomorrow at dialysis for another INR. She is asked to return to the Ed for uncontrolled bleeding. Departure - Departure Disposition: Home, Self Care Clinical Impression: Elevated INR Puncture wound of arm, left, multiple sites Qualifiers: Encounter type: initial encounter Qualified Code(s): S41.132A - Puncture wound without foreign body of left upper arm, initial encounter Condition: Stable Instructions: Prothrombin Time, ED Laceration Ext Sutr Stap Tape Follow-Up: Lorie Glynn ARNP [Primary Care Provider] - Comments: Today your INR was 10.2. Do not take coumadin and have your INR re-checked tomorrow. Discharge Date/Time: 05/23/18 17:48
[2018-05-23 16:35] LABS: PT - PROTHROMBIN TIME 112.3 secs (9.9-12.6)
[2018-05-23 17:12] LABS: INR 10.2 (0.8-1.2)
[2018-05-23] MEDS ORDERED: PHYTONADIONE 10 MG/ML AMP PO ONE (17:22)
[2018-05-23] MEDS ORDERED: CHERRY SYRUP 10 ML UDC PO ONE (17:22)
[2018-05-23 17:48] VITALS: BP 182/88
== END 2018-05-23 17:48 | disposition home or self-care (01) ==
LOC: ED 15:58
DX: T82.838A Hemorrhage due to vascular prosthetic devices, implants and grafts, initial encounter (principal); R79.1 Abnormal coagulation profile; I12.0 Hypertensive chronic kidney disease with stage 5 chronic kidney disease or end stage renal disease; E11.22 Type 2 diabetes mellitus with diabetic chronic kidney disease; N18.6 End stage renal disease; Z99.2 Dependence on renal dialysis; E11.42 Type 2 diabetes mellitus with diabetic polyneuropathy; E78.00 Pure hypercholesterolemia, unspecified; Z86.73 Personal history of transient ischemic attack (TIA), and cerebral infarction without residual deficits; F17.200 Nicotine dependence, unspecified, uncomplicated; Z79.01 Long term (current) use of anticoagulants
CPT/HCPCS: 12001; 36415; 85610; 99281; 99283; A9270

== ENCOUNTER 2018-05-28 10:28 | Emergency (ER) | payer MEDICAID ==
[2018-05-28 11:22] VITALS: BP 204/89
[2018-05-28 11:54] LABS: INR 1.7 (0.8-1.2); PT - PROTHROMBIN TIME 18.9 secs (9.9-12.6)
--- NOTE | 2018-05-28 12:27 | ED Physician Documentation ---
PD HPI WOUND RECHECK - Stated complaint Stated Complaint: SUTURE REMOVAL - Chief complaint Chief Complaint: General - Histroy obtained from History obtained from: Patient - History of Present Illness Location: Left Uppper Extremity (had bleeding from fistula sites, and elevated INR couple days ago. sutures over the needle sites at fistula, and here for suture removal. Had dialysis yeseterday without problems.) Timing - onset: How many days ago (3) Associated symptoms: No: Fever, Redness Similar symptoms before: Has not had sx before Recently seen: Emergency Dept Review of Systems Constitutional: denies: Fever, Chills Skin: denies: Rash Neurologic: denies: Focal weakness, Numbness, Near syncope PD PAST MEDICAL HISTORY - Past Medical History Cardiovascular: Hypertension, High cholesterol Respiratory: Asthma, Pneumonia, Other Neuro: TIA, Peripheral neuropathy Endocrine/Autoimmune: Type 2 diabetes GI: GERD HAND BANDER: None : Dialysis, Renal insuffiency, Other HEENT: Other Psych: Depression, Anxiety Musculoskeletal: Osteoarthritis, Chronic back pain Derm: None - Past Surgical History Past Surgical History: Yes General: Cholecystectomy, Appendectomy, Bowel surgery Ortho: Carpal Tunnel surgery, Other /HAND BANDER: section, 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 Cardiovascular: Other HEENT: Cataracts, Other - Present Medications Home Medications: Ambulatory Orders Medication Instructions Recorded Confirmed Labetalol HCl [Trandate] 100 mg PO BID 11/20/12 04/11/17 Montelukast Sodium [Singulair] 10 mg PO DAILY 11/25/12 04/11/17 raNITIdine [Zantac] 1 tab PO BID 08/22/14 04/11/17 Albuterol Sulfate [Proair 90 mcg IH Q6HR PRN 06/02/15 04/11/17 Respiclick] Loratadine 10 mg PO DAILY 06/02/15 04/11/17 Bisacodyl [Dulcolax] 10 mg PO DAILY PRN #10 tablet 09/27/16 04/11/17 Calcium Acetate 1,334 mg PO TIDWM 09/27/16 04/11/17 Furosemide [Lasix] 160 mg PO BID 09/27/16 04/11/17 Gabapentin 900 mg PO DAILY PM 09/27/16 04/11/17 Hydrocodone/Acetaminophen [Vicodin 0 mg PO .FREQ 09/27/16 04/11/17 Hp 10-300 mg Tablet] Lisinopril 2.5 mg PO DAILY 09/27/16 04/11/17 Omeprazole 40 mg PO BID 09/27/16 04/11/17 Sertraline [Zoloft] 25 mg PO DAILY 09/27/16 04/11/17 hydrALAZINE [Apresoline] 25 mg PO BID 09/27/16 04/11/17 hydrOXYzine HCl [Hydroxyzine HCl] 25 mg PO .FREQ 09/27/16 04/11/17 metOLazone [Metolazone] 5 mg PO DAILY 09/27/16 04/11/17 Albuterol Sulfate [Proair Hfa 8.5 gm IH QID #1 hfa.aer.ad 10/11/16 04/11/17 Inhaler] Baclofen 5 - 10 mg PO PRN PRN 10/11/16 04/11/17 Hydrocodone Bit/Homatrop Me-Br 1 each PO TID PRN #14 tablet 02/23/17 04/11/17 [Hydrocod-Homatrop 5-1.5 mg Tab] Levofloxacin [Levaquin] 500 mg PO DAILY #7 tablet 04/11/17 Azithromycin [Zithromax] 250 mg PO DAILY #6 tablet 01/08/18 Amox/Clav 500/125 [Augmentin] 1 each PO DAILY #7 tablet 03/08/18 - Allergies Allergies/Adverse Reactions: Allergies Allergy/AdvReac Type Severity Reaction Status Date / Time No Known Drug Allergies Allergy Verified 05/28/18 11:22 - Social History Does the pt smoke?: Yes Smoking Status: Current every day smoker Does the pt drink ETOH?: Yes Does the pt have substance abuse?: No - Immunizations Immunizations are current?: Yes - POLST Patient has POLST: No PD ED PE NORMAL - Vitals Vital signs reviewed: Yes - General General: Alert and oriented X 3, No acute distress, Well developed/nourished - Derm Derm: Normal color, Warm and dry - Extremities Extremities: Other (left upper arm with fistula, and 2 separate sutures over prior needle holes. No signs of infection. No bleeding. ) Results - Vitals Vitals: Oxygen O2 Source Room air - Labs Labs: Laboratory Tests 05/28/18 11:45 PT 18.9 H INR 1.7 H PD MEDICAL DECISION MAKING - ED course Complexity details: considered differential (the fistula appears okay, with thrill and she had dialysis yesterday without problems. Sutures removed without problems), d/w patient Departure - Departure Disposition: 01 Home, Self Care Clinical Impression: Visit for suture removal, Anticoagulant long-term use Condition: Stable Record reviewed to determine appropriate education?: Yes Follow-Up: Lorie Glynn ARNP [Primary Care Provider] - Cinthia Akins MD [Provider Admit Priv/Credential] - Comments: Your INR is 1.7 so resume your normal Coumadin doses this evening. The sutures came out okay and the wound appears fine. Continue usual medications. Continue dialysis as usual tomorrow. Talk with Dr. Akins about medication list to since you said you are sleepy all the time to see if there might be an adjustment in medications or such. Discharge Date/Time: 05/28/18 13:03
== END 2018-05-28 13:03 | disposition home or self-care (01) ==
LOC: ED 10:28
DX: Z48.02 Encounter for removal of sutures (principal); R79.1 Abnormal coagulation profile; Z79.02 Long term (current) use of antithrombotics/antiplatelets; Z86.73 Personal history of transient ischemic attack (TIA), and cerebral infarction without residual deficits; Z99.2 Dependence on renal dialysis; E11.42 Type 2 diabetes mellitus with diabetic polyneuropathy; I10 Essential (primary) hypertension; F17.200 Nicotine dependence, unspecified, uncomplicated
CPT/HCPCS: 36415; 85610; 99282

== ENCOUNTER 2018-06-04 12:45 | Emergency (ER) | payer MEDICAID ==
[2018-06-04 13:04] VITALS: BP 149/63
--- NOTE | 2018-06-04 13:09 | ED Physician Documentation ---
PD HPI HEAD INJURY - Stated complaint Stated Complaint: FACIAL INJURY - Chief complaint Chief Complaint: Trauma Hd/Nk - History obtained from History obtained from: Patient - History of Present Illness Mechanism of head injury: Fell (2 days ago, fell off couch while sleeping. Hit face, c/o mildly blurry vision bilateral and facial pain. Last dialysis Sat- this was after that. Scheduled for dialysis tomorrow. No other inj besides face/head.) Review of Systems Constitutional: reports: Reviewed and negative Nose: denies: Rhinorrhea / runny nose, Epistaxis Throat: denies: Sore throat Cardiac: denies: Chest pain / pressure, Palpitations Respiratory: denies: Dyspnea, Cough PD PAST MEDICAL HISTORY - Past Medical History Cardiovascular: Hypertension, High cholesterol Respiratory: Asthma, Pneumonia, Other Neuro: TIA, Peripheral neuropathy Endocrine/Autoimmune: Type 2 diabetes GI: GERD CONDUCTOR ORCHESTRA: None : Dialysis, Renal insuffiency, Other HEENT: Other Psych: Depression, Anxiety Musculoskeletal: Osteoarthritis, Chronic back pain Derm: None - Past Surgical History Past Surgical History: Yes General: Cholecystectomy, Appendectomy, Bowel surgery Ortho: Carpal Tunnel surgery, Other /CONDUCTOR ORCHESTRA: section, 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 Cardiovascular: Other HEENT: Cataracts, Other - Present Medications Home Medications: Ambulatory Orders Medication Instructions Recorded Confirmed Montelukast Sodium [Singulair] 10 mg PO DAILY 11/25/12 06/04/18 Albuterol Sulfate [Proair 90 mcg IH Q6HR PRN 06/02/15 06/04/18 Respiclick] Loratadine 10 mg PO DAILY 06/02/15 06/04/18 Calcium Acetate 1,334 mg PO TIDWM 09/27/16 06/04/18 Furosemide [Lasix] 160 mg PO BID 09/27/16 06/04/18 Hydrocodone/Acetaminophen [Vicodin 0 mg PO .FREQ 09/27/16 06/04/18 Hp 10-300 mg Tablet] Lisinopril 2.5 mg PO DAILY 09/27/16 06/04/18 hydrALAZINE [Apresoline] 25 mg PO BID 09/27/16 06/04/18 hydrOXYzine HCl [Hydroxyzine HCl] 25 mg PO .FREQ 09/27/16 06/04/18 metOLazone [Metolazone] 5 mg PO DAILY 09/27/16 06/04/18 Albuterol Sulfate [Proair Hfa 8.5 gm IH QID #1 hfa.aer.ad 10/11/16 06/04/18 Inhaler] Hydrocodone Bit/Homatrop Me-Br 1 each PO TID PRN #14 tablet 02/23/17 06/04/18 [Hydrocod-Homatrop 5-1.5 mg Tab] Hydrocodone/Acetaminophen 1 - 2 each PO Q6H PRN #10 tablet 06/04/18 [Hydrocodon-Acetaminophen 5-325] - Allergies Allergies/Adverse Reactions: Allergies Allergy/AdvReac Type Severity Reaction Status Date / Time No Known Drug Allergies Allergy Verified 05/28/18 11:22 - Social History Does the pt smoke?: Yes Smoking Status: Current every day smoker Does the pt drink ETOH?: Yes Does the pt have substance abuse?: No - Immunizations Immunizations are current?: Yes - POLST Patient has POLST: No PD ED PE NORMAL - Vitals Vital signs reviewed: Yes - General General: Alert and oriented X 3, No acute distress - HEENT HEENT: PERRL, EOMI, Other (She has a lot of bruising especially over the left forehead that has tracked down and has bilateral periorbital edema. There is no evidence clinically of entrapment but she is not following commands very cooperatively.) - Neck Neck: Supple, no meningeal sign, No bony TTP - Cardiac Cardiac: RRR, No murmur - Respiratory Respiratory: No respiratory distress, Clear bilaterally - Abdomen Abdomen: Non tender - Neuro Neuro: Alert and oriented X 3 Eye Opening: Spontaneous Motor: Obeys Commands Verbal: Oriented GCS Score: 15 - Psych Psych: Normal mood, Normal affect Results - Vitals Vitals: Vital Signs - 24 hr 06/04/18 06/04/18 06/04/18 12:59 13:10 14:00 Temperature 36.6 C Heart Rate 86 84 Respiratory 22 34 H Rate Blood Pressure 149/63 H O2 Saturation 97 92 Oxygen O2 Source Room air - Labs Labs: Laboratory Tests 06/04/18 06/04/18 06/04/18 13:10 13:10 13:10 WBC 6.0 RBC 2.85 L Hgb 9.4 L Hct 27.8 L MCV 97.3 MCH 32.9 H MCHC 33.8 RDW 16.8 H Plt Count 243 MPV 7.4 L Neut # (Auto) 5.0 Lymph # (Auto) 0.3 L [place] # (Auto) 0.4 Eos # (Auto) 0.2 Baso # (Auto) 0.1 Absolute Nucleated RBC 0.00 Nucleated RBC % 0.0 PT 23.5 H INR 2.1 H Sodium 132 L Potassium 3.7 Chloride 91 L Carbon Dioxide 28 Anion Gap 13.0 BUN 52 H Creatinine 4.5 H Estimated GFR (MDRD) 10 L Glucose 266 H Calcium 9.1 Total Bilirubin 1.7 H AST 26 ALT 11 Alkaline Phosphatase 231 H Total Protein 8.0 Albumin 3.1 L Globulin 4.9 H Albumin/Globulin Ratio 0.6 L Lipase 35 Ethyl Alcohol < 5.0 - Rads (name of study) C Spine CT Radiology: EMP read contemporaneously (Groundglass opacities at the lung apices without cervical spine fracture.) CT Head/face Radiology: EMP read contemporaneously (negative) Departure - Departure Disposition: 01 Home, Self Care Clinical Impression: Dialysis patient, Anticoagulant long-term use Head injury Qualifiers: Encounter type: initial encounter Qualified Code(s): S09.90XA - Unspecified injury of head, initial encounter Facial contusion Qualifiers: Encounter type: initial encounter Qualified Code(s): S00.83XA - Contusion of other part of head, initial encounter Condition: Good Record reviewed to determine appropriate education?: Yes Instructions: ED Head Injury Closed Prescriptions: Hydrocodone/Acetaminophen [Hydrocodon-Acetaminophen 5-325] 1 - 2 each PO Q6H PRN #10 tablet PRN Reason: pain Comments: Follow-up for dialysis tomorrow as scheduled. Return for new or worsening symptoms.
[2018-06-04] MEDS: HYDROcod/ACETAM 5/325 MG TABLET PO STA (13:11)
[2018-06-04 13:14] LABS: BASOPHILS # (AUTO) 0.1 10^3/uL (0.0-0.1); BASOPHILS % (AUTO) 1.1 %; EOSINOPHILS # (AUTO) 0.2 10^3/uL (0.0-0.7); EOSINOPHILS % (AUTO) 3.3 %; HGB - HEMOGLOBIN 9.4 g/dL (12.0-16.0); LYMPHOCYTES # (AUTO) 0.3 10^3/uL (1.5-3.5); LYMPHOCYTES % (AUTO) 5.6 %; MEAN CORPUSCULAR HEMOGLOBIN 32.9 pg (27.0-31.0); MEAN CORPUSCULAR HGB CONC 33.8 g/dL (32.0-36.0); MEAN CORPUSCULAR VOLUME 97.3 fL (81.0-99.0); MEAN PLATELET VOLUME 7.4 fL (7.9-10.8); MONOCYTES # (AUTO) 0.4 10^3/uL (0.0-1.0); MONOCYTES % (AUTO) 6.5 %; NEUTROPHILS % (AUTO) 83.5 %; PLT - PLATELET COUNT 243 10^3/uL (130-450); RED BLOOD COUNT 2.85 10^6/uL (4.20-5.40); RED CELL DISTRIBUTION WIDTH 16.8 % (12.0-15.0)
[2018-06-04 13:29] LABS: ALBUMIN 3.1 g/dL (3.2-5.5); ALBUMIN/GLOBULIN RATIO 0.6 (1.0-2.2); ALKALINE PHOSPHATASE 231 IU/L (42-121); ALT ALANINE AMINOTRANSFERASE 11 IU/L (10-60); AST ASPARTATE AMINOTRANSFERASE 26 IU/L (10-42); BILIRUBIN,TOTAL 1.7 mg/dL (0.2-1.0); BUN - BLOOD UREA NITROGEN 52 mg/dL (6-20); CALCIUM 9.1 mg/dL (8.5-10.3); CARBON DIOXIDE - CO2 28 mmol/L (21-32); CHLORIDE 91 mmol/L (101-111); CREATININE 4.5 mg/dL (0.4-1.0); GFR - MDRD 10 (>89); GLUCOSE 266 mg/dL (70-100); INR 2.1 (0.8-1.2); LIPASE 35 U/L (22-51); PT - PROTHROMBIN TIME 23.5 secs (9.9-12.6); SODIUM 132 mmol/L (135-145)
[2018-06-04] MEDS: LORazepam 0.5 MG TABLET PO STA (13:47)
--- NOTE | 2018-06-04 13:56 | CT Report ---
Reason: head inj/facial inj Procedure Date: 06/04/2018 Accession Number: [id number] / [id number] Procedure: CT - Cervical Spine W/O CPT Code: FULL RESULT: EXAM: CT CERVICAL SPINE WITHOUT CONTRAST DATE: 06/04/2018 01:23 PM. HISTORY: Head inj/facial inj. COMPARISONS: Head w/o 01/08/2018 7:48 AM. TECHNIQUE: Thin-section axial images were acquired of the cervical spine without contrast. Post-processing: Coronal and sagittal reformats. Other: None. In accordance with CT protocol optimization, one or more of the following dose reduction techniques were utilized for this exam: automated exposure control, adjustment of mA and/or KV based on patient size, or use of iterative reconstructive technique. FINDINGS: Alignment: No scoliosis or spondylolisthesis. Bones: No fracture or bone lesion. Interspace Levels/Facets: There is minimal facet and lateral mass arthropathy at the lower cervical spine. Musculature: Normal. No fatty atrophy. Other: The paravertebral and prevertebral soft tissues are unremarkable. Lung apices demonstrate bilateral groundglass opacities. IMPRESSION: Bilateral groundglass opacities in the lung apices. No evidence of osseous trauma to the cervical spine. RADIA
--- NOTE | 2018-06-04 14:01 | CT Report ---
Reason: head inj/facial inj Procedure Date: 06/04/2018 Accession Number: [id number] / [id number] Procedure: CT - Facial Bones W/O CPT Code: FULL RESULT: EXAM: CT HEAD AND MAXILLOFACIAL EXAM DATE: 06/04/2018 01:41 PM. CLINICAL HISTORY: Head injury/facial injury. Fall hitting the face 2 days ago, extreme bruising. COMPARISON: HEAD W/O 01/08/2018 7:48 AM FACIAL BONES W/O 06/04/2018 1:23 PM. TECHNIQUE: Noncontrast axial sections through the head and face, with multiplanar reconstructions through the face. In accordance with CT protocol optimization, one or more of the following dose reduction techniques were utilized for this exam: automated exposure control, adjustment of mA and/or KV based on patient size, or use of iterative reconstructive technique. FINDINGS HEAD CT: Parenchyma: No intraparenchymal hemorrhage. No evidence of mass, midline shift, or CT findings of infarction. Lopez-white differentiation is distinct. Extraaxial Spaces: Normal for age. No subdural or epidural collections identified. Ventricles: Normal in size and position. Bones: No evidence of fracture or calvarial defect. Other: None. FINDINGS MAXILLOFACIAL CT: Bones: No fracture or bone lesion. Temporomandibular Joints: The temporomandibular joints are symmetric and normally located. Sinuses: Normal. No mucosal thickening or fluid levels. Other: The left frontal soft tissues demonstrated 2.8 x 1.7 cm hematoma. Glaucoma device is noted in the right orbit. IMPRESSION: Head CT: Negative for intracranial injury. Extracranial soft tissue hematoma as described. Maxillofacial CT: Negative. RADIA
--- NOTE | 2018-06-04 14:01 | CT Report ---
Reason: head inj/facial inj Procedure Date: 06/04/2018 Accession Number: [id number] / [id number] Procedure: CT - Head W/O CPT Code: FULL RESULT: EXAM: CT HEAD AND MAXILLOFACIAL EXAM DATE: 06/04/2018 01:41 PM. CLINICAL HISTORY: Head injury/facial injury. Fall hitting the face 2 days ago, extreme bruising. COMPARISON: HEAD W/O 01/08/2018 7:48 AM FACIAL BONES W/O 06/04/2018 1:23 PM. TECHNIQUE: Noncontrast axial sections through the head and face, with multiplanar reconstructions through the face. In accordance with CT protocol optimization, one or more of the following dose reduction techniques were utilized for this exam: automated exposure control, adjustment of mA and/or KV based on patient size, or use of iterative reconstructive technique. FINDINGS HEAD CT: Parenchyma: No intraparenchymal hemorrhage. No evidence of mass, midline shift, or CT findings of infarction. Lopez-white differentiation is distinct. Extraaxial Spaces: Normal for age. No subdural or epidural collections identified. Ventricles: Normal in size and position. Bones: No evidence of fracture or calvarial defect. Other: None. FINDINGS MAXILLOFACIAL CT: Bones: No fracture or bone lesion. Temporomandibular Joints: The temporomandibular joints are symmetric and normally located. Sinuses: Normal. No mucosal thickening or fluid levels. Other: The left frontal soft tissues demonstrated 2.8 x 1.7 cm hematoma. Glaucoma device is noted in the right orbit. IMPRESSION: Head CT: Negative for intracranial injury. Extracranial soft tissue hematoma as described. Maxillofacial CT: Negative. RADIA
== END 2018-06-04 15:06 | disposition home or self-care (01) ==
LOC: ED 12:45
DX: S09.90XA Unspecified injury of head, initial encounter (principal); S00.83XA Contusion of other part of head, initial encounter; W08.XXXA Fall from other furniture, initial encounter; Y93.84 Activity, sleeping; Y92.009 Unspecified place in unspecified non-institutional (private) residence as the place of occurrence of the external cause; I10 Essential (primary) hypertension; E11.42 Type 2 diabetes mellitus with diabetic polyneuropathy; E78.00 Pure hypercholesterolemia, unspecified; Z86.73 Personal history of transient ischemic attack (TIA), and cerebral infarction without residual deficits; F17.200 Nicotine dependence, unspecified, uncomplicated; Z79.01 Long term (current) use of anticoagulants; Z99.2 Dependence on renal dialysis
CPT/HCPCS: 36415; 70450; 70486; 72125; 80053; 80320; 83690; 85025; 85610; 99283

== ENCOUNTER 2018-07-02 10:05 | Emergency (ER) | payer MEDICAID ==
[2018-07-02] MEDS ORDERED: HYDROcod/ACETAM 5/325 MG TABLET PO STA (11:05)
--- NOTE | 2018-07-02 11:22 | ED Physician Documentation ---
History of Present Illness - Stated complaint Stated Complaint: MED REFILL - Chief complaint Chief Complaint: General - History obtained from History obtained from: Patient, Caregiver - History of Present Illness Timing: How many weeks ago (1) Pain level max: 10 Pain level now: 10 Quality: "pain all over" Improved by: vicodin only Worsened by: nothing Associated symptoms: anxiety Review of Systems Ten Systems: 10 systems reviewed and negative Constitutional: denies: Fever, Myalgias Cardiac: denies: Chest pain / pressure Respiratory: denies: Dyspnea GI: denies: Abdominal Pain, Nausea, Vomiting Musculoskeletal: denies: Neck pain, Back pain, Extremity pain Neurologic: denies: Generalized weakness Psychiatric: reports: Anxiety. denies: Suicidal PD PAST MEDICAL HISTORY - Past Medical History Cardiovascular: Hypertension, High cholesterol Respiratory: Asthma, Pneumonia, Other Neuro: TIA, Peripheral neuropathy Endocrine/Autoimmune: Type 2 diabetes GI: GERD ANIMAL TRAPPER: None : Dialysis, Renal insuffiency, Other HEENT: Other Psych: Depression, Anxiety Musculoskeletal: Osteoarthritis, Chronic back pain Derm: None - Past Surgical History Past Surgical History: Yes General: Cholecystectomy, Appendectomy, Bowel surgery Ortho: Carpal Tunnel surgery, Other /ANIMAL TRAPPER: section, 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 Cardiovascular: Other HEENT: Cataracts, Other - Present Medications Home Medications: Ambulatory Orders Medication Instructions Recorded Confirmed Montelukast Sodium [Singulair] 10 mg PO DAILY 11/25/12 06/04/18 Albuterol Sulfate [Proair 90 mcg IH Q6HR PRN 06/02/15 06/04/18 Respiclick] Loratadine 10 mg PO DAILY 06/02/15 06/04/18 Calcium Acetate 1,334 mg PO TIDWM 09/27/16 06/04/18 Furosemide [Lasix] 160 mg PO BID 09/27/16 06/04/18 Hydrocodone/Acetaminophen [Vicodin 0 mg PO .FREQ 09/27/16 06/04/18 Hp 10-300 mg Tablet] Lisinopril 2.5 mg PO DAILY 09/27/16 06/04/18 hydrALAZINE [Apresoline] 25 mg PO BID 09/27/16 06/04/18 hydrOXYzine HCl [Hydroxyzine HCl] 25 mg PO .FREQ 09/27/16 06/04/18 metOLazone [Metolazone] 5 mg PO DAILY 09/27/16 06/04/18 Albuterol Sulfate [Proair Hfa 8.5 gm IH QID #1 hfa.aer.ad 10/11/16 06/04/18 Inhaler] Hydrocodone Bit/Homatrop Me-Br 1 each PO TID PRN #14 tablet 02/23/17 06/04/18 [Hydrocod-Homatrop 5-1.5 mg Tab] Hydrocodone/Acetaminophen 1 - 2 each PO Q6H PRN #10 tablet 06/04/18 [Hydrocodon-Acetaminophen 5-325] Hydrocodone/Acetaminophen [Vicodin 1 each PO Q8HR PRN #6 tablet 07/02/18 5-300 mg Tablet] clonazePAM [Clonazepam] 2 mg PO TID PRN #6 tablet 07/02/18 - Allergies Allergies/Adverse Reactions: Allergies Allergy/AdvReac Type Severity Reaction Status Date / Time No Known Drug Allergies Allergy Verified 05/28/18 11:22 - Social History Does the pt smoke?: Yes Smoking Status: Current every day smoker Does the pt drink ETOH?: Yes Does the pt have substance abuse?: No - Immunizations Immunizations are current?: Yes - POLST Patient has POLST: No PD ED PE NORMAL - Vitals Vital signs reviewed: Yes - General General: Alert and oriented X 3, Well developed/nourished, Other (Patient moaning requesting for Vicodin for pain all over.) - HEENT HEENT: Atraumatic, PERRL, EOMI, Moist mucous membranes - Neck Neck: Supple, no meningeal sign, No bony TTP - Cardiac Cardiac: RRR, No murmur - Respiratory Respiratory: No respiratory distress, Clear bilaterally - Abdomen Abdomen: Normal bowel sounds, Soft, Non tender, Non distended - Back Back: No CVA TTP, No spinal TTP - Derm Derm: Warm and dry - Extremities Extremities: No deformity, No tenderness to palpate, Normal ROM s pain - Neuro Neuro: Alert and oriented X 3, No motor deficit, No sensory deficit, Normal speech - Psych Psych: Other (Patient states that she cannot handle sitting during dialysis without her pain medication and antianxiety medication.) Results - Vitals Vitals: Vital Signs - 24 hr 07/02/18 07/02/18 10:24 11:29 Temperature 36.7 C Heart Rate 88 89 Respiratory 20 18 Rate Blood Pressure 167/113 H 179/97 H O2 Saturation 98 98 Oxygen O2 Source Room air PD MEDICAL DECISION MAKING - ED course Complexity details: re-evaluated patient, considered differential (narcotic dependence, anxiety), d/w patient ED course: 47-year-old female with history of diabetes, hypertension, atrial fib on Coumadin, chronic pain syndrome, end-stage renal disease on dialysis Monday, , Monday here with complaint of generalized pain and requesting for Vicodin. Reviewed prescription drug report and patient was prescribed lorazepam times 2 mg 180 tablets last June 22, 2018. When inform about this patient stated that she lost some of her pills. But patient is actually here more requesting for Vicodin which she has not had for 2 weeks. Based on the prescription drug reports patient was prescribed hydrocodone 10/3 25 mg 180 tablets last June 08. When asked about this patient stated she needs it. Patient's loss prevention/safety district manager for [employer] is at the bedside her name is Nakita Kwon. Business Risk Analyst stated that she tried to get an appointment for the patient with her primary doctor today but they are full. So they were told to go to the emergency room. She will try again to get an appointment on Monday since tomorrow is her dialysis. Departure - Departure Disposition: Home, Self Care Clinical Impression: Medication refill, Narcotic dependence, Anxiety Chronic pain Qualifiers: Chronic pain type: chronic pain syndrome Qualified Code(s): G89.4 - Chronic pain syndrome Condition: Stable Instructions: ED Stress React, ED Chronic Pain Management Prescriptions: Hydrocodone/Acetaminophen [Vicodin 5-300 mg Tablet] 1 each PO Q8HR PRN #6 tablet PRN Reason: Pain clonazePAM [Clonazepam] 2 mg PO TID PRN #6 tablet PRN Reason: Anxiety Comments: You have to follow-up with your primary doctor in 1-2 days and get medication refill for your pain and anxiety. Maintain safety while taking these medications. If worse return to the emergency room. Forms: Activity restrictions Discharge Date/Time: 07/02/18 11:34
[2018-07-02 11:29] VITALS: BP 179/97
== END 2018-07-02 11:34 | disposition home or self-care (01) ==
LOC: ED 10:05
DX: F11.20 Opioid dependence, uncomplicated (principal); F41.9 Anxiety disorder, unspecified; G89.4 Chronic pain syndrome; I10 Essential (primary) hypertension; E78.00 Pure hypercholesterolemia, unspecified; E11.9 Type 2 diabetes mellitus without complications; Z99.2 Dependence on renal dialysis; E11.42 Type 2 diabetes mellitus with diabetic polyneuropathy; F17.200 Nicotine dependence, unspecified, uncomplicated
CPT/HCPCS: 99283; A9270

== ENCOUNTER 2018-07-08 18:10 | Outpatient (CLI) | payer MEDICAID | END 2018-07-08 18:11 | disposition critical access hospital (66) | LOC: EMS 18:10 | PROVIDERS: ATTEND Surgery | DX: S09.90XA Unspecified injury of head, initial encounter (principal); M79.602 Pain in left arm; M79.601 Pain in right arm; W22.8XXA Striking against or struck by other objects, initial encounter; Y93.01 Activity, walking, marching and hiking; Y92.009 Unspecified place in unspecified non-institutional (private) residence as the place of occurrence of the external cause | CPT/HCPCS: A0425; A0429; A0999 ==

== ENCOUNTER 2018-07-08 18:38 | Emergency (ER) | payer MEDICAID ==
[2018-07-08] MEDS ORDERED: HYDROcod/ACETAM 5/325 MG TABLET PO STA (18:50)
--- NOTE | 2018-07-08 18:57 | ED Physician Documentation ---
PD HPI MAJOR TRAUMA - Stated complaint Stated Complaint: GLF/HIT HEAD - Chief complaint Chief Complaint: Trauma Hd/Nk - History obtained from History obtained from: Patient, EMS - History of Present Illness Mechanism of injury: Other (She was walking without her walker and kind of keeled over and hit her head on the wall. There was no loss of consciousness. She also hit her right shoulder. No other injuries.) Review of Systems Constitutional: reports: Reviewed and negative Cardiac: reports: Reviewed and negative Respiratory: reports: Reviewed and negative PD PAST MEDICAL HISTORY - Past Medical History Cardiovascular: Hypertension, High cholesterol Respiratory: Asthma, Pneumonia, Other Neuro: TIA, Peripheral neuropathy Endocrine/Autoimmune: Type 2 diabetes GI: GERD COTA: None : Dialysis, Renal insuffiency, Other HEENT: Other Psych: Depression, Anxiety Musculoskeletal: Osteoarthritis, Chronic back pain Derm: None - Past Surgical History Past Surgical History: Yes General: Cholecystectomy, Appendectomy, Bowel surgery Ortho: Carpal Tunnel surgery, Other /COTA: section, 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 Cardiovascular: Other HEENT: Cataracts, Other - Present Medications Home Medications: Ambulatory Orders Medication Instructions Recorded Confirmed Montelukast Sodium [Singulair] 10 mg PO DAILY 11/25/12 06/04/18 Albuterol Sulfate [Proair 90 mcg IH Q6HR PRN 06/02/15 06/04/18 Respiclick] Loratadine 10 mg PO DAILY 06/02/15 06/04/18 Calcium Acetate 1,334 mg PO TIDWM 09/27/16 06/04/18 Furosemide [Lasix] 160 mg PO BID 09/27/16 06/04/18 Hydrocodone/Acetaminophen [Vicodin 0 mg PO .FREQ 09/27/16 06/04/18 Hp 10-300 mg Tablet] Lisinopril 2.5 mg PO DAILY 09/27/16 06/04/18 hydrALAZINE [Apresoline] 25 mg PO BID 09/27/16 06/04/18 hydrOXYzine HCl [Hydroxyzine HCl] 25 mg PO .FREQ 09/27/16 06/04/18 metOLazone [Metolazone] 5 mg PO DAILY 09/27/16 06/04/18 Albuterol Sulfate [Proair Hfa 8.5 gm IH QID #1 hfa.aer.ad 10/11/16 06/04/18 Inhaler] Hydrocodone Bit/Homatrop Me-Br 1 each PO TID PRN #14 tablet 02/23/17 06/04/18 [Hydrocod-Homatrop 5-1.5 mg Tab] Hydrocodone/Acetaminophen 1 - 2 each PO Q6H PRN #10 tablet 06/04/18 [Hydrocodon-Acetaminophen 5-325] Hydrocodone/Acetaminophen [Vicodin 1 each PO Q8HR PRN #6 tablet 07/02/18 5-300 mg Tablet] clonazePAM [Clonazepam] 2 mg PO TID PRN #6 tablet 07/02/18 Hydrocodone/Acetaminophen 1 - 2 each PO Q6H PRN #14 tablet 07/08/18 [Hydrocodon-Acetaminophen 5-325] - Allergies Allergies/Adverse Reactions: Allergies Allergy/AdvReac Type Severity Reaction Status Date / Time No Known Drug Allergies Allergy Verified 07/08/18 18:45 - Social History Does the pt smoke?: Yes Smoking Status: Current every day smoker Does the pt drink ETOH?: Yes Does the pt have substance abuse?: No - Immunizations Immunizations are current?: Yes - POLST Patient has POLST: No PD ED PE NORMAL - Vitals Vital signs reviewed: Yes - General General: Alert and oriented X 3, No acute distress - HEENT HEENT: PERRL, EOMI, Other (There is a well demarcated scrape on the left forehead and what seems to be a sebaceous cyst in the mid forehead.) - Neck Neck: Supple, no meningeal sign, No bony TTP - Extremities Extremities: Other (She is tender over the glenohumeral joint on the right and the distal clavicle. She is unable to lift the right arm off of the bed due to pain. Left wrist is also tender which she did not notice until the examination. The remainder of her extremities are nontender.) - Neuro Neuro: Alert and oriented X 3, Normal speech - Psych Psych: Normal mood, Normal affect Results - Vitals Vitals: Vital Signs - 24 hr 07/08/18 07/08/18 18:39 19:30 Temperature 37.4 C Heart Rate 97 97 Respiratory 16 16 Rate Blood Pressure 180/80 H 173/82 H O2 Saturation 96 94 Oxygen O2 Source Room air - Rads (name of study) CT Head/Cspine Radiology: EMP read contemporaneously (Forehead hematoma without intracranial injury, Right posterior first rib fracture, Small pleural effusion, review of prior imaging shows that this is chronic.) X-rays of the left wrist and right shoulder and clavicle Radiology: EMP read contemporaneously (Left wrist is without fracture, she does have a clavicular fracture.) PD MEDICAL DECISION MAKING - ED course ED course: 47-year-old woman who is dialysis dependent with some psychiatric issues presents by ambulance after a fall against a wall at home. To my eye the CT of the head and C-spine are without acute change. She does have a distal clavicular fracture. I discussed with her that these are generally managed conservatively especially with her underlying health issues. I offered to call [facility] to see if they could provide a higher level of care for more in-home c are than they are usually doing. She does have daily visiting caregivers. She declined, she thinks she will be fine at home without any increased level of care. I also offered to hospitalize her, given her underlying comorbidities and the clavicular fracture and rib fracture I did not think it would be a bad idea. She refused. Departure - Departure Disposition: 01 Home, Self Care Clinical Impression: Right clavicle fracture Qualifiers: Encounter type: initial encounter Clavicle location: shaft Fracture type: closed Fracture alignment: displaced Qualified Code(s): S42.021A - Displaced fracture of shaft of right clavicle, initial encounter for closed fracture Neck sprain Qualifiers: Encounter type: initial encounter Qualified Code(s): S13.9XXA - Sprain of joints and ligaments of unspecified parts of neck, initial encounter Forehead contusion Qualifiers: Encounter type: initial encounter Qualified Code(s): S00.83XA - Contusion of other part of head, initial encounter Left wrist sprain Qualifiers: Encounter type: initial encounter Qualified Code(s): S63.502A - Unspecified sprain of left wrist, initial encounter Fracture of single rib Qualifiers: Encounter type: initial encounter Fracture type: closed Renal failure Qualifiers: Renal failure chronicity: chronic Chronic kidney disease stage: on chronic dialysis Qualified Code(s): N18.6 - End stage renal disease; Z99.2 - Dependence on renal dialysis Condition: Good Record reviewed to determine appropriate education?: Yes Instructions: ED Head Injury Closed Sleep Mon, ED Fx Clavicle Prescriptions: Hydrocodone/Acetaminophen [Hydrocodon-Acetaminophen 5-325] 1 - 2 each PO Q6H PRN #14 tablet PRN Reason: pain Comments: Continue routine dialysis. Return anytime if worse or if new symptoms develop. Follow-up with your doctor in 3 days for recheck. Also return if you decide you would like admission or higher level of care as discussed which I did recommend.
--- NOTE | 2018-07-08 20:03 | CT Report ---
Reason: fall, head inj, R shoulder, L wrist inj Procedure Date: 07/08/2018 Accession Number: [id number] / [id number] Procedure: CT - Head W/O CPT Code: FULL RESULT: EXAM: CT HEAD EXAM DATE: 07/08/2018 07:23 PM. CLINICAL HISTORY: 47-year-old with fall and head strike presenting with headache and neck pain. Evaluate for intracranial pathology. COMPARISON: CT head 06/04/2018. TECHNIQUE: Multiaxial CT images were obtained from the foramen magnum to the vertex. Reformats: Sagittal and coronal. IV contrast: None. In accordance with CT protocol optimization, one or more of the following dose reduction techniques were utilized for this exam: automated exposure control, adjustment of mA and/or KV based on patient size, or use of iterative reconstructive technique. FINDINGS: Parenchyma: No intraparenchymal hemorrhage. No evidence of mass, midline shift, or CT findings of infarction. Lopez-white differentiation is distinct. Extraaxial Spaces: Normal for age. No subdural or epidural collections identified. Ventricles: Normal in size and position. Sinuses and Orbits: Metallic density noted in the left orbit similar to prior study. Otherwise, the orbits appear normal. Visualized paranasal sinuses, mastoid air cells, and middle ear cavities appear clear. Bones: No evidence of fracture or calvarial defect. Other: There is moderate left frontal scalp contusion with small right lateral scalp contusion. There is extensive vascular calcification seen within the scalp. There is extensive vascular calcifications of the cavernous ICA segments. IMPRESSION: 1. No definite acute intracranial pathology seen; specifically, no acute infarct, acute intracranial hemorrhage, mass, hydrocephalus or midline shift. 2. No definite calvarial fracture. 3. Moderate left frontal scalp hematoma and small right lateral scalp hematoma. [facility]
[2018-07-08] MEDS ORDERED: HYDROcod/ACET 5/325 Prepack 4 PO STA (20:12)
--- NOTE | 2018-07-08 20:32 | CT Report ---
Reason: fall, head inj, R shoulder, L wrist inj Procedure Date: 07/08/2018 Accession Number: [id number] / [id number] Procedure: CT - Cervical Spine W/O CPT Code: FULL RESULT: EXAM: CT CERVICAL SPINE WITHOUT CONTRAST DATE: 07/08/2018 07:43 PM. HISTORY: 47-year-old presenting after a traumatic fall. Evaluate for neck pathology. COMPARISONS: CERVICAL SPINE W/O 06/04/2018 1:23 PM. TECHNIQUE: Thin-section axial images were acquired of the cervical spine without contrast. Post-processing: Coronal and sagittal reformats. Other: None. In accordance with CT protocol optimization, one or more of the following dose reduction techniques were utilized for this exam: automated exposure control, adjustment of mA and/or KV based on patient size, or use of iterative reconstructive technique. FINDINGS: Alignment: Straightening of the normal cervical lordosis. No traumatic subluxation. No significant spondylolisthesis. Slight leftward curvature of the cervical spine which may be positional. Bones: No fracture of the cervical spine seen. There is fracture of the posterior right first rib. No suspicious osseous lesion seen. Interspace Levels/Facets: There is minimal facet and lateral mass arthropathy seen at the lower cervical spine similar to CT 06/04/2018. No definite significant spinal canal stenosis or neural foraminal narrowing seen. Musculature: Normal. No fatty atrophy. Other: There is extensive vascular calcification of the arteries of the neck seen. Moderate right pleural effusion. IMPRESSION: 1. No definite cervical spine fracture seen. No traumatic subluxation of the cervical spine. 2. There is a fracture of the posterior right first rib. 3. Moderate right pleural effusion. [facility]
--- NOTE | 2018-07-08 20:43 | XRAY Report ---
Reason: clavicle inj Procedure Date: 07/08/2018 Accession Number: [id number] / [id number] Procedure: XR - Clavicle RT CPT Code: FULL RESULT: EXAM: RIGHT CLAVICLE RADIOGRAPHY EXAM DATE: 07/08/2018 08:02 PM. CLINICAL HISTORY: Clavicle inj. COMPARISON: SHOULDER 3 VIEW RT 06/26/2013 12:32 PM. TECHNIQUE: 2 views. FINDINGS: Bones: There is an acute, comminuted fracture of the distal right clavicle, which is displaced inferiorly approximately 6 mm. Possible acute fracture of the inferior glenoid. No additional fractures or dislocations visualized. Joints: The acromioclavicular and sternoclavicular joints are intact. No subluxation. Soft Tissues: Soft tissue swelling overlying the distal right clavicle. IMPRESSION: Acute, comminuted fracture of the distal right clavicle. [facility]
[2018-07-08] MEDS ORDERED: oxyCODONE 5 MG TABLET PO STA (20:44)
--- NOTE | 2018-07-08 20:45 | XRAY Report ---
Reason: fall, head inj, R shoulder, L wrist inj Procedure Date: 07/08/2018 Accession Number: [id number] / [id number] Procedure: XR - Shoulder 3 View RT CPT Code: FULL RESULT: EXAM: RIGHT SHOULDER RADIOGRAPHY EXAM DATE: 07/08/2018 08:02 PM. CLINICAL HISTORY: Fall, head inj, R shoulder, L wrist inj. COMPARISON: SHOULDER 3 VIEW RT 06/26/2013 12:32 PM. TECHNIQUE: 3 views. FINDINGS: Bones: Acute, mildly displaced fracture of the distal right clavicle. No additional acute fracture or dislocation visualized. Chronic deformity of the lateral right seventh rib. Joints: The glenohumeral and acromioclavicular joints are intact. Soft tissues: Soft tissue swelling overlying the distal right clavicle. Calcified plaques in the axillary artery. Additional calcified plaques in the smaller arteries of the lateral right chest wall and brachial artery. IMPRESSION: Acute, mildly displaced distal right clavicle fracture. [facility]
--- NOTE | 2018-07-08 20:48 | XRAY Report ---
Reason: fall, head inj, R shoulder, L wrist inj Procedure Date: 07/08/2018 Accession Number: [id number] / [id number] Procedure: XR - Wrist 4 View LT CPT Code: FULL RESULT: EXAM: LEFT WRIST RADIOGRAPHY EXAM DATE: 07/08/2018 08:02 PM. CLINICAL HISTORY: Fall, head inj, R shoulder, L wrist inj. COMPARISON: None available. TECHNIQUE: 4 views. FINDINGS: Bones: No acute fracture or dislocation. Joints: Mild narrowing of the radiocarpal joint space. Soft Tissues: Calcified plaques in the distal radial and ulnar arteries. IMPRESSION: No acute fracture or dislocation of the left wrist. [facility]
[2018-07-08 21:11] VITALS: BP 164/98
== END 2018-07-08 21:11 | disposition home or self-care (01) ==
LOC: EDUNIT# → ED 18:38
DX: S42.021A Displaced fracture of shaft of right clavicle, initial encounter for closed fracture (principal); S13.9XXA Sprain of joints and ligaments of unspecified parts of neck, initial encounter; S00.83XA Contusion of other part of head, initial encounter; S63.502A Unspecified sprain of left wrist, initial encounter; W18.30XA Fall on same level, unspecified, initial encounter; W22.09XA Striking against other stationary object, initial encounter; Y92.009 Unspecified place in unspecified non-institutional (private) residence as the place of occurrence of the external cause; I10 Essential (primary) hypertension; E78.00 Pure hypercholesterolemia, unspecified; E11.42 Type 2 diabetes mellitus with diabetic polyneuropathy; Z86.73 Personal history of transient ischemic attack (TIA), and cerebral infarction without residual deficits; F17.200 Nicotine dependence, unspecified, uncomplicated
CPT/HCPCS: 70450; 72125; 73000; 73030; 73110; 99283; A9270

== ENCOUNTER 2018-07-11 07:40 | Outpatient (CLI) | payer MEDICAID | END 2018-07-11 07:41 | disposition E | LOC: EMS 07:40 | PROVIDERS: ATTEND Surgery ==